=== PATIENT | female | born 1990 | race Caucasian/White ===

== ENCOUNTER → 2016-11-25 | Outpatient (CLI) | payer OTHER ==
[~2016-11-25] MED LIST: ACET50TAOT PO; ARIP1TAB PO; DEPA500T2 PO; FLAG500T PO; MOTR200T44 PO; OMEP20CA3 PO; PRENTAB52 PO
== END ==
LOC: M OUTALCOH 09:22
PROVIDERS: ATTEND Psychiatry & Neurology Psychiatry
DX: F14.20 Cocaine dependence, uncomplicated (principal); F12.20 Cannabis dependence, uncomplicated

== ENCOUNTER 2016-12-19 09:28 | Outpatient (RCR) | payer OTHER | END 2016-12-20 | LOC: M OUTALCOH 09:28 | PROVIDERS: ATTEND Psychiatry & Neurology Psychiatry | DX: Z13.9 Encounter for screening, unspecified (principal); F14.20 Cocaine dependence, uncomplicated; F12.20 Cannabis dependence, uncomplicated ==

== ENCOUNTER 2017-01-12 09:00 | Outpatient (RCR) | payer OTHER | END 2017-01-20 | LOC: M OUTALCOH 09:00 | PROVIDERS: ATTEND Psychiatry & Neurology Psychiatry | DX: Z13.9 Encounter for screening, unspecified (principal); F14.20 Cocaine dependence, uncomplicated; F12.20 Cannabis dependence, uncomplicated ==

== ENCOUNTER → 2018-07-09 | Outpatient (CLI) | payer OTHER ==
[2018-07-09 18:52] LABS: ALBUMIN 3.8 GM/DL (3.2-5.2); ALBUMIN/GLOBULIN RATIO 1.06 (1.00-1.93); ALKALINE PHOSPHATASE 74 U/L (45-117); ALT/SGPT 235 U/L (12-78); AST/SGOT 89 U/L (7-37); BILIRUBIN,DIRECT 0.1 MG/DL (0.0-0.2); BILIRUBIN,TOTAL 0.4 MG/DL (0.2-1.0); TOTAL PROTEIN 7.4 GM/DL (6.4-8.2)
[2018-07-11 10:40] LABS: HEPATITIS C VIRUS ABY INDEX > 11.0 INDEX (<0.8)
[2018-07-12 00:06] LABS: HEPATITIS C QUANTITATION 391930 IU/mL (.); Lyme Disease IgG/IgM Antibodie <0.91 ISR (0.00-0.90); Lyme Disease IgM Ab Quantitati <0.80 index (0.00-0.79)
== END ==
LOC: M SMT 14:31
DX: Z11.59 Encounter for screening for other viral diseases (principal)
CPT/HCPCS: 80076

== ENCOUNTER → 2018-08-02 | Outpatient (REF) | payer OTHER ==
[2018-08-02 12:54] LABS: ALBUMIN 3.8 GM/DL (3.2-5.2); ALBUMIN/GLOBULIN RATIO 1.19 (1.00-1.93); ALKALINE PHOSPHATASE 59 U/L (45-117); ALT/SGPT 289 U/L (12-78); ANION GAP 7 MEQ/L (8-16); AST/SGOT 127 U/L (7-37); BILIRUBIN,TOTAL 0.8 MG/DL (0.2-1.0); BLOOD UREA NITROGEN 10 MG/DL (7-18); CALCIUM LEVEL 9.3 MG/DL (8.5-10.1); CARBON DIOXIDE LEVEL 30 MEQ/L (21-32); CHLORIDE LEVEL 105 MEQ/L (98-107); CREATININE FOR GFR 0.79 MG/DL (0.55-1.30); GLOMERULAR FILTRATION RATE > 60.0 (>60); GLUCOSE, FASTING 73 MG/DL (70-100); POTASSIUM SERUM 4.1 MEQ/L (3.5-5.1); SODIUM LEVEL 142 MEQ/L (136-145)
[2018-08-03 11:58] LABS: HEPATITIS B SURFACE ANTIBODY POSITIVE (POSITIVE)
[2018-08-03 12:08] LABS: HEPATITIS B SURFACE ANTIGEN NEGATIVE (NEGATIVE)
[2018-08-03 12:37] LABS: HIV 1&2 SCREEN CENTAUR NEGATIVE (NEGATIVE)
[2018-08-07 15:09] LABS: ALPHA 2-MACROGLOBULIN 224 mg/dL (110-276); ALT 285 IU/L (0-40); APOLIPOPROTEIN A-1 139 mg/dL (116-209); FIBROSIS SCORE 0.16 (0.00-0.21); GGT 36 IU/L (0-60); HAPTOGLOBIN 82 mg/dL (34-200); HEPATITIS A IgG TOTAL Positive (Negative); HEPATITIS B CORE ANTIBODY IGG Negative (Negative); HEPATITIS C QUANTITATION 123050 IU/mL (.); HEPATITIS C VIRUS GENOTYPE 1a (.); NECROINFLAM SCORE 0.86 (0.00-0.17); NECROINFLAMM GRADE A3-Severe activity (.); TOTAL BILIRUBIN 0.4 mg/dL (0.0-1.2)
== END ==
LOC: M SFHCPLAZ 10:19
DX: B19.20 Unspecified viral hepatitis C without hepatic coma (principal)
CPT/HCPCS: 82977

== ENCOUNTER 2018-08-11 11:50 | Emergency (ER) | payer OTHER, SELFPAY ==
[2018-08-11 12:24] LABS: HEMATOCRIT 40.6 % (36.0-47.0); HEMOGLOBIN 14.1 g/dl (12.0-15.5); MEAN CORPUSCULAR HEMOGLOBIN 31.9 pg (27.0-33.0); MEAN CORPUSCULAR HGB CONC 34.7 g/dl (32.0-36.5); MEAN CORPUSCULAR VOLUME 91.9 fl (80.0-96.0); PLATELET COUNT, AUTOMATED 227 10^3/uL (150-450); RED BLOOD COUNT 4.42 10^6/uL (4.00-5.40); RED CELL DISTRIBUTION WIDTH 11.9 % (11.5-14.5); WHITE BLOOD COUNT 5.6 10^3/uL (4.0-10.0)
[2018-08-11 12:42] LABS: CONTROL LINE HCG INT CTR LINE PRESENT; HCG, SERUM QUALITATIVE NEGATIVE (NEGATIVE)
[2018-08-11 13:00] LABS: ACETAMINOPHEN LEVEL < 2.0 UG/ML (10.0-30.0); ALBUMIN 3.9 GM/DL (3.2-5.2); ALBUMIN/GLOBULIN RATIO 1.22 (1.00-1.93); ALKALINE PHOSPHATASE 58 U/L (45-117); ALT/SGPT 237 U/L (12-78); ANION GAP 4 MEQ/L (8-16); AST/SGOT 87 U/L (7-37); BILIRUBIN,DIRECT 0.2 MG/DL (0.0-0.2); BILIRUBIN,TOTAL 0.9 MG/DL (0.2-1.0); BLOOD UREA NITROGEN 12 MG/DL (7-18); CARBON DIOXIDE LEVEL 29 MEQ/L (21-32); CHLORIDE LEVEL 108 MEQ/L (98-107); CREATININE FOR GFR 0.88 MG/DL (0.55-1.30); ETHYL ALCOHOL (ETHANOL) < 0.003 % (0.000-0.010); GLOMERULAR FILTRATION RATE > 60.0 (>60); GLUCOSE, FASTING 89 MG/DL (70-100); POTASSIUM SERUM 4.3 MEQ/L (3.5-5.1); SALICYLATE LEVEL < 1.7 MG/DL (5.0-30.0); SODIUM LEVEL 141 MEQ/L (136-145); TOTAL PROTEIN 7.1 GM/DL (6.4-8.2)
[2018-08-11] MEDS: KETOROLAC 30 MG/ML VIAL (J1885) IV (13:08)
[2018-08-11] MEDS: NS 1,000 ML IV (13:09)
[2018-08-11 16:20] LABS: AMPHETAMINES LEVEL URINE NEGATIVE (NEGATIVE); BARBITURATES URINE NEGATIVE (NEGATIVE); BENZODIAZEPINES URINE NEGATIVE (NEGATIVE); CANNABINOIDS URINE NEGATIVE (NEGATIVE); COCAINE METABOLITE URINE NEGATIVE (NEGATIVE); METHADONE URINE NEGATIVE (NEGATIVE); OPIATES URINE NEGATIVE (NEGATIVE); PHENCYCLIDINE URINE NEGATIVE (NEGATIVE)
== END 2018-08-11 22:00 ==
LOC: M ED 11:50
DX: F22 Delusional disorders (principal); F29 Unspecified psychosis not due to a substance or known physiological condition; K90.0 Celiac disease; Z72.0 Tobacco use
CPT/HCPCS: J1885

== ENCOUNTER → 2018-09-28 | Outpatient (CLI) | payer OTHER ==
[2018-09-28 13:18] LABS: ALBUMIN 3.8 GM/DL (3.2-5.2); ALBUMIN/GLOBULIN RATIO 1.12 (1.00-1.93); ALKALINE PHOSPHATASE 54 U/L (45-117); ALT/SGPT 32 U/L (12-78); AST/SGOT 19 U/L (7-37); BILIRUBIN,DIRECT 0.1 MG/DL (0.0-0.2); BILIRUBIN,TOTAL 0.5 MG/DL (0.2-1.0); TOTAL PROTEIN 7.2 GM/DL (6.4-8.2)
[2018-09-28 14:13] LABS: HEPATITIS C VIRUS ABY INDEX > 11.0 INDEX (<0.8)
[2018-10-02 14:13] LABS: HEPATITIS C QUANTITATION HCV Not Detected IU/mL (.)
== END ==
LOC: M SMT 11:16
DX: B18.2 Chronic viral hepatitis C (principal)
CPT/HCPCS: 80076

== ENCOUNTER → 2019-01-10 | Outpatient (REF) | payer OTHER ==
[~2019-01-10] MED LIST changes: +ACET500T15 PO; -ACET50TAOT PO
[2019-01-10 11:45] LABS: BASO % 0.3 % (0.0-1.0); EOS # 0.2 10^3/uL (0.0-0.50); EOS % 3.2 % (0.0-3.0); HEMATOCRIT 41.8 % (36.0-47.0); HEMOGLOBIN 14.1 g/dl (12.0-15.5); LYMPH # 2.3 10^3/uL (1.5-6.5); LYMPH % 35.6 % (24.0-44.0); MEAN CORPUSCULAR HEMOGLOBIN 31.5 pg (27.0-33.0); MEAN CORPUSCULAR HGB CONC 33.7 g/dl (32.0-36.5); MEAN CORPUSCULAR VOLUME 93.5 fl (80.0-96.0); MONO # 0.4 10^3/uL (0.0-0.8); MONO % 5.5 % (0.0-5.0); NEUTROPHILS # 3.5 10^3/uL (1.8-7.7); NEUTROPHILS % 55.1 % (36.0-66.0); PLATELET COUNT, AUTOMATED 215 10^3/uL (150-450); RED BLOOD COUNT 4.47 10^6/uL (4.00-5.40); WHITE BLOOD COUNT 6.3 10^3/uL (4.0-10.0)
[2019-01-10 12:17] LABS: ALBUMIN 3.6 GM/DL (3.2-5.2); ALT/SGPT 21 U/L (12-78); BILIRUBIN,TOTAL 0.4 MG/DL (0.2-1.0); BLOOD UREA NITROGEN 14 MG/DL (7-18); CALCIUM LEVEL 9.3 MG/DL (8.5-10.1); CARBON DIOXIDE LEVEL 28 MEQ/L (21-32); CHLORIDE LEVEL 107 MEQ/L (98-107); CREATININE FOR GFR 0.86 MG/DL (0.55-1.30); GLOMERULAR FILTRATION RATE > 60.0 (>60); GLUCOSE, FASTING 89 MG/DL (70-100); POTASSIUM SERUM 4.2 MEQ/L (3.5-5.1); SODIUM LEVEL 142 MEQ/L (136-145); TOTAL PROTEIN 6.9 GM/DL (6.4-8.2)
== END ==
LOC: M SFHCCLAY 09:20
PROVIDERS: ATTEND Internal Medicine Infectious Disease
DX: B18.2 Chronic viral hepatitis C (principal)

== ENCOUNTER 2019-04-29 12:02 | Inpatient (IN) | payer OTHER ==
[~2019-04-29 12:02] MED LIST changes: +OMEP1CAP73 PO; -OMEP20CA3 PO
[2019-04-29] MEDS ORDERED: HYDR50TA70 (12:14)
[2019-04-29] MEDS ORDERED: RISP3TAB3 (12:14)
[2019-04-29 14:09] LABS: HEMATOCRIT 48.2 % (36.0-47.0); HEMOGLOBIN 16.7 g/dl (12.0-15.5); MEAN CORPUSCULAR HEMOGLOBIN 32.3 pg (27.0-33.0); MEAN CORPUSCULAR HGB CONC 34.6 g/dl (32.0-36.5); MEAN CORPUSCULAR VOLUME 93.2 fl (80.0-96.0); PLATELET COUNT, AUTOMATED 325 10^3/uL (150-450); RED BLOOD COUNT 5.17 10^6/uL (4.00-5.40); WHITE BLOOD COUNT 13.2 10^3/uL (4.0-10.0)
[2019-04-29 14:31] LABS: HCG, SERUM QUALITATIVE NEGATIVE (NEGATIVE)
[2019-04-29 14:40] LABS: ALBUMIN 4.2 GM/DL (3.2-5.2); ALT/SGPT 98 U/L (12-78); BILIRUBIN,DIRECT 0.3 MG/DL (0.0-0.2); BLOOD UREA NITROGEN 13 MG/DL (7-18); CALCIUM LEVEL 9.3 MG/DL (8.5-10.1); CARBON DIOXIDE LEVEL 25 MEQ/L (21-32); CHLORIDE LEVEL 107 MEQ/L (98-107); CREATININE FOR GFR 1.03 MG/DL (0.55-1.30); ETHYL ALCOHOL (ETHANOL) < 0.003 % (0.000-0.010); GLOMERULAR FILTRATION RATE > 60.0 (>60); GLUCOSE, FASTING 107 MG/DL (70-100); POTASSIUM SERUM 3.9 MEQ/L (3.5-5.1); SALICYLATE LEVEL 2.2 MG/DL (5.0-30.0); SODIUM LEVEL 140 MEQ/L (136-145); TOTAL PROTEIN 8.2 GM/DL (6.4-8.2)
[2019-04-29 14:41] LABS: ACETAMINOPHEN LEVEL < 2.0 UG/ML (10.0-30.0)
[2019-04-29 16:36] LABS: AMPHETAMINES LEVEL URINE POSITIVE (NEGATIVE); BARBITURATES URINE NEGATIVE (NEGATIVE); BENZODIAZEPINES URINE NEGATIVE (NEGATIVE); CANNABINOIDS URINE POSITIVE (NEGATIVE); COCAINE METABOLITE URINE POSITIVE (NEGATIVE); METHADONE URINE NEGATIVE (NEGATIVE); OPIATES URINE NEGATIVE (NEGATIVE); PHENCYCLIDINE URINE NEGATIVE (NEGATIVE)
[2019-04-29] MEDS ORDERED: diphenhydrAMINE INJ 50MG/ML VIAL (J1200) As Ordered ONE (19:14)
[2019-04-29] MEDS ORDERED: HALOPERIDOL 5 MG/ML VIAL (J1630) As Ordered ONE (19:14)
[2019-04-29] MEDS ORDERED: LORazepam 2 MG/ML VIAL (J2060) As Ordered ONE (19:15)
[2019-04-29] MEDS ORDERED: LORazepam 2 MG/ML VIAL (J2060) IM ONE (19:15)
[2019-04-29] MEDS ORDERED: HALOPERIDOL 5 MG/ML VIAL (J1630) IM ONE (19:15)
[2019-04-29] MEDS ORDERED: diphenhydrAMINE INJ 50MG/ML VIAL (J1200) IM ONE (19:15)
[2019-04-29] MEDS ORDERED: ACETAMINOPHEN TAB 650MG DOSE (2X325MG) PO PRN (20:45)
[2019-04-29] MEDS ORDERED: MOM 30ML SUSPENSION UDC PO PRN (20:45)
[2019-04-29] MEDS ORDERED: OLANZapine ORAL DISINTEGRATING TAB 5MG PO PRN (20:45)
[2019-04-29] MEDS ORDERED: IBUPROFEN 400 MG TAB PO PRN (20:45)
[2019-04-30 01:36] VITALS: BP 111/54
--- NOTE | 2019-04-30 10:16 | MHHPEPDOC ---
[facility] History & Physical History and Physical DATE OF ADMISSION: Apr 29, 2019 at 20:34 LEGAL STATUS AT ADMISSION: . CHIEF COMPLAINT: . HISTORY OF PRESENT ILLNESS: Patient is a 29-year-old female, who PSYCHIATRIC REVIEW OF SYSTEMS: Affective: . Anxiety: . Trauma: . Psychosis: . Personality: . PAST PSYCHIATRIC HISTORY: Prior Psychiatric Disorder: . Outpatient Treatment: . Suicidal/Self injurious: [Denies]. Psychotropic Medication History: . ALLERGIES: Please see below. FAMILY PSYCHIATRIC HISTORY: [Denies]. SOCIAL HISTORY: Early Relations/development: . Sibling order: . Paternal relationships: . Education: . Occupational: . Legal: . Marital: . Economic: . Supports: . Abuse/trauma: . SUBSTANCE ABUSE HISTORY: . PAST MEDICAL/SURGICAL HISTORY: [None]. VITAL SIGNS: Please see below. MENTAL STATUS EXAMINATION: General appearance: Patient is a -year old female, who is . Speech: . Thought processes: . Thought content: . Abstract reasoning and computation: . Description of associations: . Description of abnormal or psychotic thoughts: . Judgment: . Insight: . Orientation: . Recent and remote memory: . Attention span and concentration: . Fund of knowledge: . Mood: "." Affect: . DIAGNOSES: 1. . 2. . 3. . ASSESSMENT: PROBLEM LIST: 1. . 2. . 3. . INITIAL TREATMENT PLAN: 1. Patient was admitted on a . 2. Complete history was obtained. 3. With patients permission, family will be contacted and database will be expanded. 4. Patients medication regimen will be reviewed and changed accordingly. 5. Patient will be provided with protected environment. 6. Patient will be treated with individual, group, and milieu therapies. 7. Patient will receive supportive psych-education. 8. Discharge planning will commence immediately. 9. Outpatient follow-up treatment will be strongly recommended. 10. The initial treatment plan will focus initially on: * Depression. * Risk for suicide. * Substance abuse. ESTIMATED LENGTH OF STAY: - DAYS. TIME SPENT COUNSELING AND COORDINATING INITIAL CARE: minutes. Vital Signs Vital Signs Date Time Temp Pulse Resp B/P (MAP) Pulse Ox O2 Delivery O2 Flow Rate FiO2 04/30/19 01:36 97.6 86 16 111/54 (73) 04/29/19 21:15 97 Room Air Laboratory Data 24H Labs Laboratory Tests 2 04/29/19 12:45: Nucleated Red Blood Cells % (auto) 0.0, Anion Gap 8, Glomerular Filtration Rate > 60.0, Calcium Level 9.3, Aspartate Amino Transf (AST/SGOT) 60H, Alanine Aminotransferase (ALT/SGPT) 98H, Alkaline Phosphatase 65, Total Bilirubin 1.0, Direct Bilirubin 0.3H, Total Protein 8.2, Albumin 4.2, Albumin/Globulin Ratio 1.05, Thyroid Stimulating Hormone (TSH) 1.600, Human Chorionic Gonadotropin, Qual NEGATIVE, Salicylates Level 2.2L, Acetaminophen Level < 2.0L, Ethyl Alcohol Level < 0.003 04/29/19 13:32: Urine Amphetamines Screen POSITIVEH, Urine Benzodiazepines Screen NEGATIVE, Urine Opiates Screen NEGATIVE, Urine Methadone Screen NEGATIVE, Urine Barbiturates Screen NEGATIVE, Urine Phencyclidine Screen NEGATIVE, Urine Cocaine Metabolite Screen POSITIVEH, Urine Cannabinoids Screen POSITIVEH CBC/BMP Laboratory Tests 04/29/19 12:45 Red Blood Count 5.17, Mean Corpuscular Volume 93.2, Mean Corpuscular Hemoglobin 32.3, Mean Corpuscular Hemoglobin Concent 34.6, Red Cell Distribution Width 12.9 Medications No Active Prescriptions or Reported Meds Allergies Coded Allergies: Gluten Flour (Verified Allergy, Unknown, 08/11/18) LENARD POE DO Apr 30, 2019 10:16
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
[2019-04-30 18:00] VITALS: BP 115/64
[2019-04-30] MEDS: PALIPERIDONE 3 MG ER TAB (INVEGA) PO SCH (21:48)
[2019-05-01 06:40] VITALS: BP 111/57
[2019-05-01 06:56] LABS: HEMATOCRIT 46.1 % (36.0-47.0); HEMOGLOBIN 15.8 g/dl (12.0-15.5); MEAN CORPUSCULAR HEMOGLOBIN 32.9 pg (27.0-33.0); MEAN CORPUSCULAR HGB CONC 34.3 g/dl (32.0-36.5); PLATELET COUNT, AUTOMATED 246 10^3/uL (150-450); WHITE BLOOD COUNT 6.3 10^3/uL (4.0-10.0)
[2019-05-01 07:25] LABS: ALBUMIN 3.6 GM/DL (3.2-5.2); ALT/SGPT 111 U/L (12-78); BLOOD UREA NITROGEN 14 MG/DL (7-18); CALCIUM LEVEL 9.3 MG/DL (8.5-10.1); CARBON DIOXIDE LEVEL 26 MEQ/L (21-32); CHLORIDE LEVEL 106 MEQ/L (98-107); CREATININE FOR GFR 1.05 MG/DL (0.55-1.30); GLOMERULAR FILTRATION RATE > 60.0 (>60); GLUCOSE, FASTING 84 MG/DL (70-100); MAGNESIUM LEVEL 2.2 MG/DL (1.8-2.4); POTASSIUM SERUM 4.1 MEQ/L (3.5-5.1); SODIUM LEVEL 139 MEQ/L (136-145); TOTAL PROTEIN 7.1 GM/DL (6.4-8.2)
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
[2019-05-01 18:00] VITALS: BP 114/60
[2019-05-01] MEDS: PALIPERIDONE 3 MG ER TAB (INVEGA) PO SCH (22:04)
[2019-05-01] MEDS: traZODone 50 MG TAB PO PRN (22:04)
[2019-05-02 06:46] VITALS: BP 90/58
--- NOTE | 2019-05-02 09:14 | MHIPNPDOC ---
[facility] Progress Note Progress Note DATE OF SERVICE: 05/02/19 HISTORY: Patient is a 29 -year-old , female, with a history of psychosis and previous admission for psychosis to [facility] in 2016 who was brought in under 9.[address] Moeller 2mo ago after she was found by police on [facility] surrounded by a crowd of people rolling abound on the ground mumbling about Rey and the Lord per ED. In ED pt was psychotic causing her so not be able to participate with interview due to being disorganized, distracted, responding to internal stimuli, speaking of Rey "coming down to democrat with me ," and pacing. Her utox was positive for amphetamines, cocaine, and cannabis. Pt is a poor historian so history gathered from previous records. VITAL SIGNS: See below. NEW TEST RESULTS: See below. CURRENT MEDICATIONS: See below. MENTAL STATUS EXAMINATION: General Appearance: unkempt, appears stated age, hospital scrubs/clothing, o ther (red geena around neck) Build: average Demeanor: withdrawn Eye Contact: good Activity: average Behavior: cooperative Speech: clear, spontaneous Mood: euthymic and full Mood "good" Affect: euthymic and full Thought Process: linear and logical Thought Content (Delusions): Denies SI/HI, AVH Thought Content (Other): none reported Thought Content (Aggressive): none reported Perception (Hallucinations): denies auditory Perception (Other): none reported Cognition (Impairment of): memory of events prior to admission otherwise currently functioning normally Cognition(Intelligence Est.): average Oriented: Awake, Alert, Oriented times three Insight: good Judgment: good Psychosis: denies DIAGNOSES: Psychosis unspecified R/O substance induced psychosis amphetamine, cocaine, cannabis use d/o ASSESSMENT:Pt seen and states that her mood is good and denies symptoms of psychosis as invega is very beneficial and she's tolerating it well. She does not appear psychotic. She is future oriented toward going home soon and seeing her boyfriend who he lives with and who will be returning from [place] to be a police shift commander. States her boyfriend and her mother are supportive, talks to her mother regularly. States she's being social on the milieu which is beneficial. States she slept well last night. Feels she is tolerating her medications and they're beneficial. She is attending groups and finding them helpful. She denies SI/HI, hallucinations, delusions. Pt feels safe here. MANAGEMENT PLAN: continue plan invega 3mg qhs TIME SPENT: 30 minutes. Vital Signs Vital Signs Date Time Temp Pulse Resp B/P (MAP) Pulse Ox O2 Delivery O2 Flow Rate FiO2 05/02/19 06:46 98.0 73 14 90/58 (69) 04/29/19 21:15 97 Room Air Current Medications Current Medications Acetaminophen (Tylenol Tab) 650 mg Q6HP PRN PO HEADACHE or DISCOMFORT; Start 04/29/19 at 20:45 Home Med (Med Rec Complete!) ASDIRECTED XX ; Start 04/29/19 at 21:15; Stop 04/29/19 at 21:15; Status DC Ibuprofen (Advil) 400 mg Q6HP PRN PO PAIN; Start 04/29/19 at 20:45 Magnesium Hydroxide (Milk Of Magnesia) 30 ml DAILYPRN PRN PO CONSTIPATION; Start 04/29/19 at 20:45 Olanzapine (ZyPREXA ZYDIS) 5 mg Q4HP PRN PO AGITATION; Start 04/29/19 at 20:45 Paliperidone (Invega) 3 mg QHS PO Last administered on 05/01/19at 22:04; Start 04/30/19 at 21:00 Trazodone HCl (Desyrel) 50 mg QHSP PRN PO INSOMNIA Last administered on 05/01/19at 22:04; Start 04/29/19 at 20:45 Allergies Coded Allergies: Gluten Flour (Verified Allergy, Unknown, 08/11/18) ELLA TAYLOR DO May 02, 2019 9:14 am
--- NOTE | 2019-05-02 09:21 | MHDSPDOC ---
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 Moeller 2mo ago after she was found by police on [facility] surrounded by a crowd of people rolling abound on the ground mumbling about Rey and the Lord per ED. In ED pt was psychotic causing her so not be able to participate with interview due to being disorganized, distracted, responding to internal stimuli, speaking of Rey "coming down to green party with me," and pacing. Her utox was positive for amphetamines, cocaine, and cannabis. Pt is a poor historian so history gathered from previous records. CONSULTANTS INVOLVED: none TREATMENT AND PROGRESS ON THE UNIT : Pt was admitted to [facility], seen for psychiatric assessment and started on invega 3mg qhs for psychosis. She was provided trazodone 50mg qhs prn insomnia. Pt found her medications beneficial and tolerated them well. She attended groups daily during her stay. Her symptoms improved with treatment. On day of discharge she denied depression, anxiety, insomnia, SI/HI, hallucinations, delusions. She was discharged home with her boyfriend with follow-up at [facility]. She felt safe for discharge. DISCHARGE ASSESSMENT: :Pt seen and states that her mood is good and denies sy mptoms of psychosis as invega is very beneficial and she's tolerating it well. She does not appear psychotic. She is future oriented toward going home soon and seeing her boyfriend who he lives with and who will be returning from [place] to be a uniform patrol police officer. States her boyfriend and her mother are supportive, talks to her mother regularly. States she's being social on the milieu which is beneficial. States she slept well last night. Feels she is tolerating her medications and they're beneficial. She is attending groups and finding them helpful. She denies depression, anxiety, insomnia, SI/HI, hallucinations, delusions. Pt feels safe to be discharged home with her boyfriend. MENTAL STATUS EXAMINATION ON DISCHARGE: General Appearance: unkempt, appears stated age, hospital scrubs/clothing, other (red geena around neck) Build: average Demeanor: withdrawn Eye Contact: good Activity: average Behavior: cooperative Speech: clear, spontaneous Mood: euthymic and full Mood "good" Affect: euthymic and full Thought Process: linear and logical Thought Content (Delusions): Denies SI/HI, AVH Thought Content (Other): none reported Thought Content (Aggressive): none reported Perception (Hallucinations): none reported Perception (Other): none reported Cognition (Impairment of): memory of events prior to admission otherwise currently functioning normally Cognition(Intelligence Est.): average Oriented: Awake, Alert, Oriented times three Insight: good Judgment: good Psychosis: denies MEDICATIONS ON DISCHARGE: invega 3mg qhs PLAN/FOLLOWUP ARRANGEMENTS: D/c home with boyfriend with follow-up at [facility], Dr. Moeller. Vital Signs/I&Os Vital Signs Date Time Temp Pulse Resp B/P (MAP) Pulse Ox O2 Delivery O2 Flow Rate FiO2 05/02/19 06:46 98.0 73 14 90/58 (69) 04/29/19 21:15 97 Room Air Medications No Active Prescriptions or Reported Meds Allergies Coded Allergies: Gluten Flour (Verified Allergy, Unknown, 08/11/18) ELLA TAYLOR DO May 02, 2019 9:21 am
[2019-05-02] MEDS ORDERED: PALI1TAB2 PO (09:23)
[2019-05-02 18:00] VITALS: BP 106/62
[2019-05-02] MEDS: traZODone 50 MG TAB PO PRN (20:11)
[2019-05-02] MEDS: PALIPERIDONE 3 MG ER TAB (INVEGA) PO SCH (20:11)
[2019-05-03 06:55] VITALS: BP 107/56
== END 2019-05-03 10:50 | disposition home or self-care (01) | DRG 774 ==
LOC: M ED 12:02 → M ED INP 20:34 → M PSY 04-30 01:40
PROVIDERS: ADMIT Psychiatry & Neurology Addiction Medicine; ATTEND Psychiatry & Neurology Psychiatry
DX: F19.94 Other psychoactive substance use, unspecified with psychoactive substance-induced mood disorder (principal); F14.90 Cocaine use, unspecified, uncomplicated; D72.829 Elevated white blood cell count, unspecified; F12.90 Cannabis use, unspecified, uncomplicated; F15.90 Other stimulant use, unspecified, uncomplicated

== ENCOUNTER 2019-06-05 21:01 | Inpatient (IN) | payer OTHER ==
[~2019-06-05] VITALS: Ht 167.6 cm; Wt 65.2 kg
[~2019-06-05 21:01] MED LIST changes: +HYDR50TA70; -OMEP1CAP73 PO; +OMEP20CA4 PO; +PALI1TAB2 PO; +RISP3TAB3
[2019-06-05 21:36] LABS: HEMATOCRIT 45.6 % (36.0-47.0); HEMOGLOBIN 15.6 g/dl (12.0-15.5); MEAN CORPUSCULAR HEMOGLOBIN 32.1 pg (27.0-33.0); MEAN CORPUSCULAR HGB CONC 34.2 g/dl (32.0-36.5); MEAN CORPUSCULAR VOLUME 93.8 fl (80.0-96.0); PLATELET COUNT, AUTOMATED 329 10^3/uL (150-450); RED BLOOD COUNT 4.86 10^6/uL (4.00-5.40); WHITE BLOOD COUNT 11.4 10^3/uL (4.0-10.0)
[2019-06-05 22:10] LABS: ACETAMINOPHEN LEVEL < 2.0 UG/ML (10.0-30.0); ALBUMIN 4.2 GM/DL (3.2-5.2); ALT/SGPT 201 U/L (12-78); BILIRUBIN,DIRECT 0.5 MG/DL (0.0-0.2); BILIRUBIN,TOTAL 1.7 MG/DL (0.2-1.0); BLOOD UREA NITROGEN 14 MG/DL (7-18); CALCIUM LEVEL 9.5 MG/DL (8.5-10.1); CARBON DIOXIDE LEVEL 30 MEQ/L (21-32); CHLORIDE LEVEL 104 MEQ/L (98-107); CREATININE FOR GFR 0.94 MG/DL (0.55-1.30); ETHYL ALCOHOL (ETHANOL) < 0.003 % (0.000-0.010); GLOMERULAR FILTRATION RATE > 60.0 (>60); GLUCOSE, FASTING 105 MG/DL (70-100); POTASSIUM SERUM 3.5 MEQ/L (3.5-5.1); SALICYLATE LEVEL < 1.7 MG/DL (5.0-30.0); SODIUM LEVEL 140 MEQ/L (136-145); TOTAL PROTEIN 8.3 GM/DL (6.4-8.2)
[2019-06-05 22:27] LABS: AMPHETAMINES LEVEL URINE POSITIVE (NEGATIVE); BARBITURATES URINE NEGATIVE (NEGATIVE); BENZODIAZEPINES URINE NEGATIVE (NEGATIVE); CANNABINOIDS URINE POSITIVE (NEGATIVE); COCAINE METABOLITE URINE POSITIVE (NEGATIVE); METHADONE URINE NEGATIVE (NEGATIVE); OPIATES URINE NEGATIVE (NEGATIVE); PHENCYCLIDINE URINE NEGATIVE (NEGATIVE)
[2019-06-05] MEDS ORDERED: OLANZapine ORAL DISINTEGRATING TAB 5MG PO ONE (22:45)
[2019-06-05] MEDS ORDERED: LORazepam 2 MG TAB PO STA (23:38)
[2019-06-06] MEDS ORDERED: MOM 30ML SUSPENSION UDC PO PRN (01:30)
[2019-06-06] MEDS ORDERED: MAALOX 30 ML SUSP *UDC PO PRN (01:30)
[2019-06-06] MEDS ORDERED: PALI1TAB2 PO (01:44)
[2019-06-06 02:41] VITALS: BP 127/99
[2019-06-06 06:35] VITALS: BP 139/87
--- NOTE | 2019-06-06 07:27 | HPEPDOC ---
General Date of Admission Jun 06, 2019 at 01:27 Date of Service: Jun 06, 2019 Attending Physician: ARTUR CANCHOLA MD Chief Complaint The patient is a 29-year-old female admitted with a reason for visit of Unspecified Psychotic D/O. History of Present Illness Dat Cowart patient is a 29-year-old female, admitted on account of bizarre behavior with auditory hallucinations. Patient was recently discharged less than a month ago from this facility for acute psychosis with paranoia. On presentation, this time Urine drug screen was again positive for amphetamines, cocaine and THC. She was admitted for acute psychosis, paranoia and delusions to inpatient psychiatric unit for further evaluation and management. On assessment, she presents with a limp, attributing to left foot pain. She denies chest pain, shortness of breath, weakness, chills, fever. Otherwise, urine examination continued to mumble to herself with very incoherent speech Home Medications Scheduled Paliperidone (Paliperidone ER) 3 Mg Tab.er.24, 3 MG PO QHS, (Reported) Allergies Coded Allergies: Gluten Flour (Verified Allergy, Unknown, 08/11/18) Past Medical History Medical History Denies prior medical history Surgical History Denies surgical history Family History Significant Family History: No pertinent family hx Social History Urine drug screen positive for amphetamine, cocaine, THC. A-FIB/CHADSVASC A-FIB History Current/History of A-Fib/PAF?: No Current PO Anticoag Therapy: No Review of Systems Other systems Review of systems not completed due to patient's impaired mental status and intoxication Physical Examination Other physical findings GENERAL: Altered, but in no acute distress SKIN : Warm, dry, wound and cracked callus to third toe pad left foot HEENT: Atraumatic, normocephalic, PERRL, moist mucous membrane CARDIOVASCULAR: Regular rate and rhythm, S1S2, no JVD, no edema, distal pulses + and palpable RESP: CTAB, no accessory muscle use noted ABDOMEN: BS+ non distended non tender MS: walks with limp with callus to left foot pad NEURO: Alert to self, CN2-12 grossly intact PSYCH: altered, intoxicated Vital Signs Vital Signs Date Time Temp Pulse Resp B/P (MAP) Pulse Ox O2 Delivery O2 Flow Rate FiO2 06/06/19 06:35 99.2 95 16 139/87 (104) 06/05/19 22:09 98 Laboratory Data Labs 24H Laboratory Tests 2 06/05/19 21:19: Nucleated Red Blood Cells % (auto) 0.0, Anion Gap 6L, Glomerular Filtration Rate > 60.0, Calcium Level 9.5, Aspartate Amino Transf (AST/SGOT) 49H, Alanine Aminotransferase (ALT/SGPT) 201H, Alkaline Phosphatase 87, Total Bilirubin 1.7H, Direct Bilirubin 0.5H, Total Protein 8.3H, Albumin 4.2, Albumin/Globulin Ratio 1.02, Thyroid Stimulating Hormone (TSH) 1.820, Salicylates Level < 1.7L, Acetaminophen Level < 2.0L, Ethyl Alcohol Level < 0.003 06/05/19 21:56: Urine Amphetamines Screen POSITIVEH, Urine Benzodiazepines Screen NEGATIVE, Urine Opiates Screen NEGATIVE, Urine Methadone Screen NEGATIVE, Urine Barbiturates Screen NEGATIVE, Urine Phencyclidine Screen NEGATIVE, Urine Cocaine Metabolite Screen POSITIVEH, Urine Cannabinoids Screen POSITIVEH CBC/BMP Laboratory Tests 06/05/19 21:19 Red Blood Count 4.86, Mean Corpuscular Volume 93.8, Mean Corpuscular Hemoglobin 32.1, Mean Corpuscular Hemoglobin Concent 34.2, Red Cell Distribution Width 12.8 Assessment/Plan Transaminitis -AST 49, ALT 21, bilirubin 1.7 -Possibly due to polysubstance abuse -Trend levels and consider imaging of liver if unimproved -Evaluate for acute hepatitis Left foot wound -Does not seem infected -Apply Warm soaks with protective footwear -Topical antibiotic -Monitor for response to therapy Leukocytosis -Possibly reactive -Was elevated last admit -Monitor with treatment, patient has no signs or symptoms of acute infectious process -If persistently elevated with other signs of infection, will investigate further Acute psychosis and delirium -Likely due to polysubstance abuse. -Management and treatment by primary team Polysubstance abuse -Management and treatment by primary team Plan / VTE VTE Prophylaxis Ordered?: No VTE Exclusion Mechanical Proph: Low Risk for VTE SABINE VERDIN Jun 06, 2019 07:27
[2019-06-06] MEDS: NEOSPORIN TOP OINT 15GM TOP SCH ×2 (09:00→12:00)
[2019-06-06 11:45] LABS: ALBUMIN 3.6 GM/DL (3.2-5.2); ALT/SGPT 160 U/L (12-78); BILIRUBIN,TOTAL 1.7 MG/DL (0.2-1.0); BLOOD UREA NITROGEN 17 MG/DL (7-18); CALCIUM LEVEL 9.3 MG/DL (8.5-10.1); CARBON DIOXIDE LEVEL 26 MEQ/L (21-32); CHLORIDE LEVEL 106 MEQ/L (98-107); CREATININE FOR GFR 0.78 MG/DL (0.55-1.30); GLOMERULAR FILTRATION RATE > 60.0 (>60); GLUCOSE, FASTING 84 MG/DL (70-100); POTASSIUM SERUM 3.7 MEQ/L (3.5-5.1); SODIUM LEVEL 139 MEQ/L (136-145); TOTAL PROTEIN 7.3 GM/DL (6.4-8.2)
[2019-06-06] MEDS ORDERED: LORazepam 1 MG TAB PO ONE (13:00)
[2019-06-06] MEDS ORDERED: HALOPERIDOL 5 MG TAB PO ONE (13:00)
[2019-06-06] MEDS ORDERED: diphenhydrAMINE 50 MG CAP PO ONE (13:00)
[2019-06-06 16:01] LABS: CPK CREATINE PHOSPHOKINASE 173 U/L (26-192)
[2019-06-06 18:00] VITALS: BP 113/69
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
[2019-06-07] MEDS: ACETAMINOPHEN TAB 650MG DOSE (2X325MG) PO PRN ×2 (05:52→17:26)
[2019-06-07 06:05] VITALS: BP 121/65
[2019-06-07 08:07] LABS: HEMATOCRIT 42.6 % (36.0-47.0); HEMOGLOBIN 14.6 g/dl (12.0-15.5); MEAN CORPUSCULAR HEMOGLOBIN 31.7 pg (27.0-33.0); MEAN CORPUSCULAR HGB CONC 34.3 g/dl (32.0-36.5); MEAN CORPUSCULAR VOLUME 92.6 fl (80.0-96.0); PLATELET COUNT, AUTOMATED 283 10^3/uL (150-450); WHITE BLOOD COUNT 7.3 10^3/uL (4.0-10.0)
[2019-06-07 08:34] LABS: ALBUMIN 3.5 GM/DL (3.2-5.2); ALT/SGPT 146 U/L (12-78); BILIRUBIN,TOTAL 0.8 MG/DL (0.2-1.0); BLOOD UREA NITROGEN 19 MG/DL (7-18); CALCIUM LEVEL 9.2 MG/DL (8.5-10.1); CARBON DIOXIDE LEVEL 25 MEQ/L (21-32); CHLORIDE LEVEL 107 MEQ/L (98-107); CREATININE FOR GFR 0.83 MG/DL (0.55-1.30); GLOMERULAR FILTRATION RATE > 60.0 (>60); GLUCOSE, FASTING 90 MG/DL (70-100); MAGNESIUM LEVEL 2.3 MG/DL (1.8-2.4); SODIUM LEVEL 140 MEQ/L (136-145); TOTAL PROTEIN 7.1 GM/DL (6.4-8.2)
--- NOTE | 2019-06-07 09:11 | IPNPDOC ---
Text Note Date of Service The patient was seen on 06/07/19. NOTE Subjective: Still incoherent, foot pain. Still persisting. Denies nausea or vom iting. Denies chest pain, denies shortness of breath. Objective: GENERAL: NAD SKIN : Warm, callus to left foot pad HEENT: Atraumatic, normocephalic, PERRL, moist mucous membrane CARDIOVASCULAR: Regular rate and rhythm, S1S2, no JVD, no edema, distal pulses + palpable RESP: CTAB, no accessory muscle use noted ABDOMEN: BS+ non distended non tender MS: no joint deformities NEURO: Alert to self PSYCH: Altered mental status. Assessment and plan Transaminitis -Possibly due to polysubstance abuse -Hepatitis panel ordered for further evaluation -Patient reports no GI symptoms. Left Foot pad Callus Wound -wound care ordered when patient allows. Acute Psychosis -likely due to poly substance abuse -management by primary team VS,Shanna, I+O VS, Shanna, I+O Laboratory Tests 06/06/19 10:20 Calcium Level 9.3, Aspartate Amino Transf (AST/SGOT) 49 H, Alanine A minotransferase (ALT/SGPT) 160 H, Total Creatine Kinase 173, Alkaline Phosphatase 75, Total Bilirubin 1.7 H, Total Protein 7.3, Albumin 3.6 06/07/19 07:36 Calcium Level 9.2, Aspartate Amino Transf (AST/SGOT) 62 H, Alanine Aminotransferase (ALT/SGPT) 146 H, Alkaline Phosphatase 79, Total Bilirubin 0.8 #, Total Protein 7.1, Albumin 3.5, Red Blood Count 4.60, Mean Corpuscular Volume 92.6, Mean Corpuscular Hemoglobin 31.7, Mean Corpuscular Hemoglobin Concent 34.3, Red Cell Distribution Width 12.8 Vital Signs Date Time Temp Pulse Resp B/P (MAP) Pulse Ox O2 Delivery O2 Flow Rate FiO2 06/07/19 06:05 98.8 95 18 121/65 (83) 06/05/19 22:09 98 SABINE VERDNIP Jun 07, 2019 09:11
[2019-06-07] MEDS: NEOSPORIN TOP OINT 15GM TOP SCH (09:47)
[2019-06-07 12:11] LABS: HEPATITIS A ANTIBODY IGM NEGATIVE (NEGATIVE); HEPATITIS B CORE ANTIBODY IGM NEGATIVE (NEGATIVE); HEPATITIS B SURFACE ANTIGEN NEGATIVE (NEGATIVE)
[2019-06-07 12:12] LABS: HEPATITIS C VIRUS ABY INDEX > 11.0 INDEX (<0.8)
--- NOTE | 2019-06-07 14:18 | MHIPNPDOC ---
[facility] Progress Note Progress Note Inpatient Progress Note Sera Daugherty Female Date of : N/A Date of Service: 06/07/2019 History of Present Illness The patient, a 29-year-old woman presents to [facility] overtly psychotic after being found by police yelling at the ground, various nonsensical statements. She has a notable history of multiple admissions and severe methamphetamine and drug use. The patient had made various bizarre statements in the ER feeling that her skin was being "eaten" by various chemicals and was responding to internal stimuli, thus was admitted. This provider attempted to then interview the patient; however, she remained fairly psychotic and unable to relate any coherent narrative, simply stating that there were "dogs in the wall and laying in her bed" staring bizarrely. Later in the day, she had started crying unusually, when asked if she wanted to eat, where she was given a small dose of medications in order to help soothe her symptoms, where the treatment team was concerned that she had taken a hallucinogen in addition to her methamphetamine she was positive for on admission. She generally stayed isolated to her room for the majority of the day and the majority of the psychosocial information extracted from her previous admissions. Interval History The patient has met with today. She reports that she is feeling "better." She has been notably sleeping the majority of the day. She's denies using any drugs prior to admission. However, when confronted with the fact that her urinary tox screen is positive with cocaine and meth she denies recent use prior to admission Review Of Systems makes no complaints other than hypersomnia Psychotherapy None on this visit. Vital Signs Reviewed. Mental Status Examination General: Fair hygiene Speech: Fluid Thought processes: Linear MSK: Smooth and coordinated gait, no signs of tremors or involuntary orofacial movements Thought content: no bizarre thoughts noted Abstract reasoning, and computation: Intact Description of associations: Intact Description of abnormal or psychotic thoughts: Denies any suicidal or homicidal ideation. Denies any auditory or visual hallucinations. Does not appear to be responding to internal stimuli. Does not appear to be endorsing any bizarre or paranoid ideation. Judgment: Improving Insight: Improving Orientation: Alert and orientated 3 Cognition: Grossly normal Recent and remote memory: Intact Attention span and concentration: Intact Fund of knowledge: Adequate Mood: "fine" Affect: flat Diagnoses Unspecified psychotic disorder. Methamphetamine use disorder, severe. Cocaine use disorder, severe. Cannabis use disorder, severe. 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 Disposition The patient will need further admission to observe for behavioral changes and ensure resolution of her psychotic symptoms. Time Spent Ten minutes face to face Monday Vital Signs Vital Signs Date Time Temp Pulse Resp B/P (MAP) Pulse Ox O2 Delivery O2 Flow Rate FiO2 06/07/19 06:05 98.8 95 18 121/65 (83) 06/05/19 22:09 98 Laboratory Data 24H Labs Laboratory Tests 2 06/07/19 07:36: Nucleated Red Blood Cells % (auto) 0.0, Anion Gap 8, Glomerular Filtration Rate > 60.0, Blood Urea Nitrogen 19H, Creatinine 0.83, Sodium Level 140, Potassium Level 4.0, Chloride Level 107, Carbon Dioxide Level 25, Calcium Level 9.2, Aspartate Amino Transf (AST/SGOT) 62H, Alanine Aminotransferase (ALT/SGPT) 146H, Alkaline Phosphatase 79, Total Bilirubin 0.8#, Total Protein 7.1, Albumin 3.5, Magnesium Level 2.3, Albumin/Globulin Ratio 0.97L CBC/BMP Laboratory Tests 06/07/19 07:36 Red Blood Count 4.60, Mean Corpuscular Volume 92.6, Mean Corpuscular Hemoglobin 31.7, Mean Corpuscular Hemoglobin Concent 34.3, Red Cell Distribution Width 12.8, Calcium Level 9.2, Aspartate Amino Transf (AST/SGOT) 62 H, Alanine Aminotransferase (ALT/SGPT) 146 H, Alkaline Phosphatase 79, Total Bilirubin 0.8 #, Total Protein 7.1, Albumin 3.5 Current Medications Current Medications Medications (Trade) Dose Ordered Sig/Walt Route PRN Reason Start Time Stop Time Status Last Admin Dose Admin Acetaminophen (Tylenol Tab) 650 mg Q6HP PRN PO HEADACHE or DISCOMFORT 06/06/19 01:30 06/07/19 05:52 Al Hydrox/Mg Hydrox/Simethicone (Mylanta) 30 ml Q4HP PRN PO HEARTBURN/INDIGESTION 06/06/19 01:30 Diphenhydramine HCl (Benadryl) 50 mg Q6HP PRN PO ANXIETY/AGITATION 06/06/19 01:30 Haloperidol (Haldol) 5 mg Q6HP PRN PO ANXIETY/AGITATION 06/06/19 01:30 Home Med (Med Rec Complete!) ASDIRECTED XX 06/06/19 01:45 06/06/19 01:46 DC Lorazepam (Ativan) 2 mg Q6HP PRN PO ANXIETY/AGITATION 06/06/19 01:30 Lorazepam (Ativan) 2 mg STAT STAT PO 06/05/19 23:38 06/05/19 23:39 DC 06/06/19 00:48 Magnesium Hydroxide (Milk Of Magnesia) 30 ml DAILYPRN PRN PO CONSTIPATION 06/06/19 01:30 Neomycin/ Polymyxin/ Bacitracin (Neosporin) APPLY TO UNDER THE TOES... DAILY TOP 06/06/19 09:00 06/07/19 09:47 Trazodone HCl (Desyrel) 50 mg QHSP PRN PO INSOMNIA 06/06/19 01:30 Allergies Coded Allergies: Gluten Flour (Verified Allergy, Unknown, 08/11/18) LENARD POE DO Jun 07, 2019 14:18
[2019-06-07 18:00] VITALS: BP 107/70
[2019-06-07] MEDS: LORazepam 1 MG TAB PO PRN (18:03)
[2019-06-07] MEDS: diphenhydrAMINE 25 MG CAP PO PRN (21:09)
[2019-06-07] MEDS: traZODone 50 MG TAB PO PRN (21:10)
[2019-06-08 06:47] VITALS: BP 97/60
[2019-06-08 08:10] LABS: HEMOGLOBIN 14.3 g/dl (12.0-15.5); MEAN CORPUSCULAR HEMOGLOBIN 32.4 pg (27.0-33.0); MEAN CORPUSCULAR VOLUME 95.2 fl (80.0-96.0); PLATELET COUNT, AUTOMATED 271 10^3/uL (150-450); RED BLOOD COUNT 4.41 10^6/uL (4.00-5.40); WHITE BLOOD COUNT 5.2 10^3/uL (4.0-10.0)
[2019-06-08 08:35] LABS: ALBUMIN 3.2 GM/DL (3.2-5.2); ALT/SGPT 128 U/L (12-78); BILIRUBIN,TOTAL 0.4 MG/DL (0.2-1.0); BLOOD UREA NITROGEN 11 MG/DL (7-18); CALCIUM LEVEL 8.7 MG/DL (8.5-10.1); CARBON DIOXIDE LEVEL 28 MEQ/L (21-32); CHLORIDE LEVEL 107 MEQ/L (98-107); CREATININE FOR GFR 0.84 MG/DL (0.55-1.30); GLOMERULAR FILTRATION RATE > 60.0 (>60); GLUCOSE, FASTING 101 MG/DL (70-100); POTASSIUM SERUM 3.7 MEQ/L (3.5-5.1); SODIUM LEVEL 140 MEQ/L (136-145); TOTAL PROTEIN 6.9 GM/DL (6.4-8.2)
[2019-06-08] MEDS: NEOSPORIN TOP OINT 15GM TOP SCH (09:00)
[2019-06-08] MEDS: LORazepam 1 MG TAB PO PRN ×2 (09:56→18:32)
[2019-06-08] MEDS: ACETAMINOPHEN TAB 650MG DOSE (2X325MG) PO PRN (16:25)
[2019-06-08] MEDS: HALOPERIDOL 5 MG TAB PO PRN (16:26)
[2019-06-08 18:00] VITALS: BP 103/61
[2019-06-09 06:49] VITALS: BP 90/51
[2019-06-09] MEDS: LORazepam 1 MG TAB PO PRN ×2 (09:28→18:24)
[2019-06-09] MEDS: diphenhydrAMINE 25 MG CAP PO PRN (09:28)
[2019-06-09] MEDS: NEOSPORIN TOP OINT 15GM TOP SCH (09:29)
--- NOTE | 2019-06-09 10:25 | MHIPN ---
DATE: 06/08/2019 VITAL SIGNS: Temperature 97.9, pulse 99, respirations 16, blood pressure 97/60. CURRENT MEDICATIONS: - Ativan 2 mg every 6 hours as needed - Benadryl 50 mg at bedtime as needed - trazodone 50 mg at bedtime as needed HISTORY OF PRESENT ILLNESS: This is a 29-year-old, white female who presented to the emergency department with acute psychosis. The patient was showing bizarre behavior. She does have a history of methamphetamine drug use. The patient is not being treated with any antipsychotics. There is a concern that the patient may have drug induced psychosis. The patient has been isolating in her room. She spends most of her day in bed. She is not active in the hospital milieu. She claims that she does have moderate depression. She denies having any auditory hallucinations. She complains that her body aches all over. She has no other complaints. MENTAL STATUS EXAMINATION: The patient is alert and oriented, but only marginally cooperative. Voice is low. She remains in bed throughout the interview. She volunteers little. She is not a good historian. She denies any current psychotic symptoms. She reports moderate depressive symptoms, but denies being homicidal or suicidal. Insight and judgment appear fair. No signs of cognitive deficits. DIAGNOSES: Psychotic disorder unspecified. Rule out substance induced psychosis. Methamphetamine use disorder. Cocaine use disorder. Cannabis use disorder. PLAN: Continue present management. Patient encouraged involvement in hospital milieu. Monitor for safety.
[2019-06-09] MEDS: HALOPERIDOL 5 MG TAB PO PRN (14:50)
[2019-06-09] MEDS: ACETAMINOPHEN TAB 650MG DOSE (2X325MG) PO PRN (14:51)
[2019-06-09 18:37] VITALS: BP 95/56
[2019-06-09] MEDS: traZODone 50 MG TAB PO PRN (22:17)
[2019-06-10 06:33] VITALS: BP 90/51
[2019-06-10] MEDS ORDERED: NICO14PA TOP (08:47)
[2019-06-10] MEDS: NEOSPORIN TOP OINT 15GM TOP SCH (09:34)
[2019-06-10] MEDS: HALOPERIDOL 5 MG TAB PO PRN (09:35)
[2019-06-10] MEDS: ACETAMINOPHEN TAB 650MG DOSE (2X325MG) PO PRN (09:35)
--- NOTE | 2019-06-10 09:39 | MHDSPDOC ---
[facility] Discharge Summary Discharge Summary DATE OF ADMISSION: Jun 06, 2019 at 01:27 DATE OF DISCHARGE: 06/10/19 Date of Service: 06/10/2019 Diagnoses Unspecified psychotic disorder. Methamphetamine use disorder, severe. Cocaine use disorder, severe. Cannabis use disorder, severe. History of Present Illness The patient, a 29-year-old woman presents to [facility] overtly psychotic after being found by police yelling at the ground, various nonsensical statements. She has a notable history of multiple admissions and severe methamphetamine and drug use. The patient had made various bizarre statements in the ER feeling that her skin was being "eaten" by various chemicals and was responding to internal stimuli, thus was admitted. Consultants Involved Hospitalist/PCP screening Treatment and Progress On The Unit The patient was admitted to the unit. She was not restarted on her paliperidone, which she had been on as an outpatient. However, despite this she made a quick recovery with no standing medications highly suggesting that the patient's tox screen positive for cocaine and methamphetamine as well as cannabis was a likely provoking factor for her psychosis. She subsequently resolved after several days of observation demonstrating no further bizarre behavior and was able to attend to her needs. When she was met with on the day of discharge, she requested to leave and at that time did not meet involuntary criteria as she did not demonstrate any suicidal or homicidal ideation and had ceased endorsing any bizarre thoughts for several days. She was noted to be generally fairly tired on her admission likely secondary to methamphetamine withdrawal. On discharge, the patient and her mother wanted to resume the Invega as she had been on it for roughly a week prior to her admission. It was resumed however with the reservation that her current psychotic symptoms are very strongly/likely related to her significant substance abuse of which the patient was counseled s ignificantly on during her admission. Discharge Assessment 29-year-old woman with a significant substance use history, who presents with psychosis likely secondary from methamphetamine and cocaine use, who resolves spontaneously without any major interventions on the unit. Mental Status Examination General: Well dressed with good hygiene Speech: Spontaneous and fluid Thought processes: Linear and logical MSK: Smooth and coordinated gait, no signs of tremors or involuntary orofacial movements Thought content: Future orientated Abstract reasoning, and computation: Intact Description of associations: Intact Description of abnormal or psychotic thoughts: Denies any suicidal or homicidal ideation. Denies any auditory or visual hallucinations. Does not appear to be responding to internal stimuli. Does not appear to be endorsing any bizarre or paranoid ideation. Judgment: fair Insight: fair Orientation: Alert and orientated 3 Cognition: Grossly normal Recent and remote memory: Intact Attention span and concentration: Intact Fund of knowledge: Adequate Mood: "okay" Affect: Euthymic with a full range Follow Up The social work team worked during the predischarge meeting in order to evaluate for further issues of lethality address them fully before discharge. They worked on safety planning with the patient's family members in order to ensure that the patient will have a safe and effective discharge. Time Spent The amount of time spent in the coordination of care for this patient was approximately 30 minutes. Monday Vital Signs/I&Os Vital Signs Date Time Temp Pulse Resp B/P (MAP) Pulse Ox O2 Delivery O2 Flow Rate FiO2 06/10/19 06:33 98.8 62 12 90/51 (64) 06/08/19 06:47 99 Medications Scheduled Nicotine (Nicotine Patch) 14 Mg Patch.td24, 1 PATCH TOP DAILY for smoking c essation for 28 Days, #28 Paliperidone (Paliperidone ER) 3 Mg Tab.er.24, 3 MG PO QHS for psychosis for 7 Days, #7 Allergies Coded Allergies: Gluten Flour (Verified Allergy, Unknown, 08/11/18) LENARD POE DO Jun 10, 2019 09:39
[2019-06-10] MEDS ORDERED: PALI1TAB2 PO (17:08)
--- NOTE | 2019-06-10 20:31 | MHIPN ---
DATE: 06/09/2019 VITAL SIGNS: Temperature 97.7, pulse 112, respirations 16, blood pressure 90/51. MEDICATIONS: - lorazepam 2 mg every six hours as needed - Haldol 5 mg every six hours as needed - trazodone 50 mg at bedtime as needed HISTORY OF PRESENT ILLNESS: The patient is still spending a lot of time in bed. She is not attending groups. The patient explains that she did not sleep for four days prior to admission. The patient did get one dose of as-needed Haldol yesterday and appeared to tolerate it well. She is not on a regular dose, however, of antipsychotics. The patient states her mood is better today. She feels less depressed. The patient is seen lying in bed again today. She has no other complaints. MENTAL STATUS EXAMINATION: The patient is alert and oriented. She is somewhat more verbal than yesterday. The patient is still lying in bed. She still denies any current psychotic symptoms. Her speech is tangential, however, and with apparent bizarre delusional comments. Her affect is brighter today. Depressive symptoms less prominent per her report. She is not homicidal or suicidal. Insight and judgment remain fair. DIAGNOSES: 1. Psychotic disorder, unspecified. 2. Rule out substance induced psychosis. 3. Methamphetamine use disorder. 4. Cocaine use disorder. 5. Cannabis use disorder. PLAN: Continue with present management. Encourage milieu therapy involvement.
--- NOTE | 2019-06-10 23:39 | IPN ---
DATE: 06/10/2019 She is a 29-year-old female who is currently on the mental health unit for an unspecific psychotic disorder. She is doing much better today and will be being discharged. We were asked to see her to followup on a large plantar wart and callus on the bottom of her right foot. She has been soaking it with warm water. There is no redness. OBJECTIVE: Vital signs: Stable. Patient is alert and oriented. Pupils equal and react to light. Extraocular movements intact. Pharynx, tongue, gums pink and moist. Tongue is midline. Neck is supple without lymphadenopathy. No thyromegaly. No goiter. Chest: Clear to auscultation without wheeze or retraction. Heart is regular. Abdomen is benign. Bowel sounds are positive. Genitourinary ()/rectal: Not done. Extremities: No cyanosis, clubbing, or edema. Peripheral pulse equal and palpable bilaterally. Skin: Warm. Callus has large deep crack in it on the pad of the foot and a large plantar wart. No redness or drainage. IMPRESSION/PLAN: History of elevated liver function tests (LFTs), improving. Followup with primary care provider. History positive for hepatitis C. Recommend followup with outpatient referral to podiatry Dr. Bianchi, and she was given an appointment to be seen tomorrow at his office 10:15 a.m. LORI
== END 2019-06-10 11:20 | disposition home or self-care (01) | DRG 751 ==
LOC: M ED 21:01 → M ED INP 06-06 01:27 → M PSY 06-06 02:08
PROVIDERS: ADMIT Psychiatry & Neurology Psychiatry; ATTEND Psychiatry & Neurology Addiction Medicine
DX: F29 Unspecified psychosis not due to a substance or known physiological condition (principal); F14.20 Cocaine dependence, uncomplicated; F12.20 Cannabis dependence, uncomplicated; F16.129 Hallucinogen abuse with intoxication, unspecified; R74.0 Nonspecific elevation of levels of transaminase and lactic acid dehydrogenase [LDH]; L84 Corns and callosities; F15.23 Other stimulant dependence with withdrawal; Z79.899 Other long term (current) drug therapy

== ENCOUNTER 2019-08-01 11:35 | Inpatient (IN) | payer OTHER ==
[~2019-08-01] VITALS: Ht 165.1 cm; Wt 66.0 kg
[~2019-08-01 11:35] MED LIST changes: +NICO14PA TOP
[2019-08-01 12:40] LABS: HEMATOCRIT 39.6 % (36.0-47.0); HEMOGLOBIN 13.6 g/dl (12.0-15.5); MEAN CORPUSCULAR HEMOGLOBIN 32.6 pg (27.0-33.0); MEAN CORPUSCULAR HGB CONC 34.3 g/dl (32.0-36.5); PLATELET COUNT, AUTOMATED 230 10^3/uL (150-450); RED BLOOD COUNT 4.17 10^6/uL (4.00-5.40); WHITE BLOOD COUNT 12.8 10^3/uL (4.0-10.0)
[2019-08-01 13:10] LABS: AMPHETAMINES LEVEL URINE NEGATIVE (NEGATIVE); BARBITURATES URINE NEGATIVE (NEGATIVE); BENZODIAZEPINES URINE NEGATIVE (NEGATIVE); CANNABINOIDS URINE NEGATIVE (NEGATIVE); COCAINE METABOLITE URINE POSITIVE (NEGATIVE); METHADONE URINE NEGATIVE (NEGATIVE); OPIATES URINE NEGATIVE (NEGATIVE); PHENCYCLIDINE URINE NEGATIVE (NEGATIVE)
[2019-08-01 13:19] LABS: ACETAMINOPHEN LEVEL < 2.0 UG/ML (10.0-30.0); ALBUMIN 3.9 GM/DL (3.2-5.2); ALT/SGPT 152 U/L (12-78); BILIRUBIN,DIRECT 0.3 MG/DL (0.0-0.2); BILIRUBIN,TOTAL 0.5 MG/DL (0.2-1.0); BLOOD UREA NITROGEN 7 MG/DL (7-18); CALCIUM LEVEL 9.4 MG/DL (8.5-10.1); CARBON DIOXIDE LEVEL 25 MEQ/L (21-32); CHLORIDE LEVEL 105 MEQ/L (98-107); CREATININE FOR GFR 0.92 MG/DL (0.55-1.30); ETHYL ALCOHOL (ETHANOL) < 0.003 % (0.000-0.010); GLOMERULAR FILTRATION RATE > 60.0 (>60); GLUCOSE, FASTING 106 MG/DL (70-100); POTASSIUM SERUM 3.7 MEQ/L (3.5-5.1); SALICYLATE LEVEL 2.1 MG/DL (5.0-30.0); SODIUM LEVEL 138 MEQ/L (136-145); TOTAL PROTEIN 7.5 GM/DL (6.4-8.2)
[2019-08-01 13:43] LABS: HCG, SERUM QUALITATIVE NEGATIVE (NEGATIVE)
[2019-08-01] MEDS ORDERED: MAALOX 30 ML SUSP *UDC PO PRN (14:45)
[2019-08-01] MEDS ORDERED: MOM 30ML SUSPENSION UDC PO PRN (14:45)
[2019-08-01 16:15] VITALS: BP 145/97
[2019-08-01] MEDS: NICOTINE 14 MG/24 HR TRANSDERMAL TD SCH (17:17)
[2019-08-01] MEDS ORDERED: diphenhydrAMINE 50 MG CAP PO ONE (18:00)
[2019-08-01] MEDS ORDERED: LORazepam 2 MG TAB PO ONE (18:00)
[2019-08-01] MEDS ORDERED: HALOPERIDOL 5 MG TAB PO ONE (18:00)
[2019-08-02] MEDS: LORazepam 2 MG TAB PO PRN ×2 (00:26→20:07)
[2019-08-02] MEDS: diphenhydrAMINE 50 MG CAP PO PRN ×2 (00:26→20:07)
[2019-08-02] MEDS: HALOPERIDOL 5 MG TAB PO PRN ×2 (00:26→20:07)
[2019-08-02] MEDS: traZODone 50 MG TAB PO PRN ×2 (00:26→20:07)
[2019-08-02 06:14] VITALS: BP 124/65
[2019-08-02] MEDS: NICOTINE 14 MG/24 HR TRANSDERMAL TD SCH (09:00)
[2019-08-02] MEDS: ACETAMINOPHEN TAB 650MG DOSE (2X325MG) PO PRN ×2 (10:31→11:35)
[2019-08-02] MEDS ORDERED: PALIPERIDONE 3 MG ER TAB (INVEGA) PO ONE (11:00)
--- NOTE | 2019-08-02 11:00 | MHHPEPDOC ---
General Date Of Admission: Aug 01, 2019 Legal Status: 9.39 Chief Complaint "They took me from my home." History of Present Illness HISTORY OF THE PRESENT ILLNESS: Patient is a 29 -year-old , female, with a history of bipolar d/o with psychosis and substance abuse last admitted [facility] 06/06/19 who was brought to ED by PD under 9.[address] Moeller after pt's mother called Dr. Moeller stating pt was psychotic, paranoid, and disorganized. Per ED, pt was talking about "risa boxes," how she can make everyone in [place] rich, and specific people that are trying to kill her and are on her home's roof try to break in. Per ED, pt was guarded, psychotic, paranoid, and disorganized. Pt is a poor historian secondary to psychosis and her history was gathered from previous hospital records. Psychiatric Review of Systems Sonja (4 or more days of): irritable/elevated mood, expansive mood, grandiosity, talkativity, pressured, flight of ideas, distractibility, goal- directed activities Psychosis: delusions, paranoia, disorganization PTSD: denies Anxiety: stressor related anxiety Anxiety/ 6 months or more of: restlessness, keyed up, difficulty concentrating Past Psychiatric History Previous Psychiatric Diagnosis: Psychosis and ADHD Previous Psychiatric Admissions: [facility] 06/06/19 for psychosis. Suicide Attempts: denies Psychiatric Follow-up: Dr. Moeller [facility] Psychiatric medications: risperdal in the past, invega 3mg bid when last admitted Past Medical History Medical Problems denies Head Injury: No Seizures: No Hospitalizations: No Surgeries: No Family Medical/Psychiatric HX Medical Problems noncontributory Psychiatric Disorders: No Addiction: No Suicide Attemps/Completions: No Addiction History nicotine, cocaine ([place] [facility] in past. Utox currently positive), amphetamines (in past), other (cannabis in past) Social History Childhood: born and raised in [place] by maternal grandparents, aunts, and uncles due to parents starting a business. Great childhood, one younger sister. Abuse/Trauma:denies Current Living Situation: lives in [place] with her girlfriend Education: high school edu Employment: unemployed Social Support: family although most like in [place] except mother who is in [place] Legal: DWI five years ago, none currently Marital: single, never , 1 daughter 4yrs old living with her mother Mental Status Examination General Appearance: unkempt, disheveled, appears stated age, hospital scubs/clothing Build: average Demeanor: withdrawn, preoccupied, guarded Eye Contact: fair Activity: average Behavior: cooperative, withdrawn Speech: clear, normal volume, non-spontaneous Mood: euthymic Mood "I'm still scared on the risa box in my home." Affect: constricted, flat Thought Process: concrete, associative Thought Content (Delusions): paranoia, delusions, other (denies SI/HI, AH (screaming thru risa box at home)) Thought Content (Other): preoccupied, guarded, ideas of reference, internal- stimuli, appears paranoid Thought Content (Aggressive): none reported Perception (Hallucinations): auditory (screaming thru risa box at home) Perception (Other): none reported Cognition (Impairment of): none reported Cognition(Intelligence Est.): average Oriented: Awake, Alert, Oriented times three Insight: poor Judgment: Poor Psychosis: Associations, Psychotic Perceptions Diagnoses Bipolar 1 d/o MRE sonja with psychosis R/O substance induced psychosis secondary cocaine cocaine use d/o A-FIB/CHADSVASC A-FIB History Current/History of A-Fib/PAF?: No Assessment Pt seen and states "I scared of risa box in my house... hearing screaming and stuff." Otherwise, guarded and states "I'm not sick or anything." States she sleeps 9 hours nightly and is eating well. Not open to supplying any further information. She appears less manic, hyperverbal today but continues to endorse paranoia regarding a "risa box" in her house and hearing screaming and other t hings (AH). Her attention appears improved today. Is agreeable to restarting invega 3mg bid for sonja and psychosis with plan for invega sustenna for med compliance prior d/c. Initial Treatment Plan 1. Patient was admitted on a 9.39 status. 2. Complete history was obtained. 3. With patients permission, family will be contacted and database will be expanded. 4. Patients medication regimen will be reviewed and changed accordingly. 5. Patient will be provided with protected environment. 6. Patient will be treated with individual, group, and milieu therapies. 7. Patient will receive supportive psych-education. 8. Discharge planning will commence immediately. 9. Outpatient follow-up treatment will be strongly recommended. 10. The initial treatment plan will focus initially on: * Depression. * Risk for suicide. 11. invega 3mg bid ESTIMATED LENGTH OF STAY: 5-7 DAYS. TIME SPENT COUNSELING AND COORDINATING INITIAL CARE: 60 minutes. Vital Signs Vital Signs Date Time Temp Pulse Resp B/P (MAP) Pulse Ox O2 Delivery O2 Flow Rate FiO2 08/02/19 06:14 97.3 88 16 124/65 (84) 08/01/19 16:15 95 08/01/19 11:54 Room Air Laboratory Data 24H Labs Laboratory Tests 2 08/01/19 12:28: Nucleated Red Blood Cells % (auto) 0.0, Anion Gap 8, Glomerular Filtration Rate > 60.0, Calcium Level 9.4, Aspartate Amino Transf (AST/SGOT) 51H, Alanine Aminotransferase (ALT/SGPT) 152H, Alkaline Phosphatase 65, Total Bilirubin 0.5, Direct Bilirubin 0.3H, Total Protein 7.5, Albumin 3.9, Albumin/Globulin Ratio 1.08, Thyroid Stimulating Hormone (TSH) 1.010, Salicylates Level 2.1L, Urine Amphetamines Screen NEGATIVE, Urine Benzodiazepines Screen NEGATIVE, Urine Opiates Screen NEGATIVE, Urine Methadone Screen NEGATIVE, Acetaminophen Level < 2.0L, Urine Barbiturates Screen NEGATIVE, Urine Phencyclidine Screen NEGATIVE, Urine Cocaine Metabolite Screen POSITIVEH, Urine Cannabinoids Screen NEGATIVE, Ethyl Alcohol Level < 0.003 08/01/19 13:22: Human Chorionic Gonadotropin, Qual NEGATIVE CBC/BMP Laboratory Tests 08/01/19 12:28 Red Blood Count 4.17, Mean Corpuscular Volume 95.0, Mean Corpuscular Hemoglobin 32.6, Mean Corpuscular Hemoglobin Concent 34.3, Red Cell Distribution Width 12.7 Medications Unable to Obtain Active Prescriptions or Reported Meds Allergies Coded Allergies: Gluten Flour (Verified Allergy, Unknown, 08/11/18) ELLA TAYLOR DO Aug 02, 2019 11:00
[2019-08-02 17:29] VITALS: BP 94/54
[2019-08-02] MEDS: PALIPERIDONE 3 MG ER TAB (INVEGA) PO SCH (20:07)
--- NOTE | 2019-08-03 06:39 | HPE ---
DATE OF ADMISSION: 08/01/2019 HISTORY OF PRESENT ILLNESS: Please refer to psychiatric history and evaluation for further details on this admission. This examination and history is intended for medical issues, which may need treatment, followup, or consult on this 29-year-old female. ALLERGIES: GLUTEN FLOUR and CIMETIDINE. PAST MEDICAL HISTORY: Depression. SOCIAL HISTORY: She is single. She does not drink alcohol. She has a history of polysubstance abuse. Urine drug screen was positive for cocaine. PAST MEDICAL HISTORY: Hepatitis C. She is currently seeing Dr. Gillette. Is on Mavyret. History of plantar warts on foot being treated by Dr. Bianchi and seasonal allergies. Depression. PAST SURGICAL HISTORY: Negative. FAMILY HISTORY: Was reviewed and nonsignificant family history. HOME MEDICATIONS: - Mavyret 100/40 mg three tablets daily - paliperidone 3 mg nightly LABORATORY STUDIES: WBC 12.8, hemoglobin 13.6, hematocrit 39.6, platelets 230. Sodium 138, potassium 3.7, chloride 105, CO2 25, BUN 7, creatinine 0.91, AST 51, ALT 152. Ten systems review was done. Was unremarkable. She had no current complaint. PHYSICAL EXAMINATION: A 29-year-old cooperative female, in no acute distress. Height 65 inches, weight 61.2 kg, body mass index (BMI) 22.5, blood pressure 124/65, pulse 88, respirations 16, temperature 97.3. Pupils equal and react to light. Extraocular movements (EOMs) intact. Cornea and sclerae clear. Conjunctivae normal. No facial asymmetry. Pharynx, tongue, gums pink and moist. Tongue is midline. NECK: Is supple without lymphadenopathy. No thyromegaly. No goiter. Carotids 2+ without bruit. CHEST: Clear to auscultation without wheeze or retraction. HEART: Is regular. ABDOMEN: Benign. Bowel sounds positive. GENITOURINARY ()/RECTAL: Not done. EXTREMITIES: Show equal strength, full range of motion. No cyanosis, clubbing, or edema. Left foot has healing very small mild plantar wart. Peripheral pulses equal and palpable bilaterally. IMPRESSION AND PLAN: 1. Psychiatric plan per psychiatry. 2. Left foot, continued followup with Dr. Bianchi, for care of plantar wart. 3. Hepatitis C. Continued followup with Dr. Gillette. Continue Mavyret as ordered by Dr. Gillette. 4. Venous thromboembolism (VTE). Low risk for VTE. Early ambulation. 5. Leukocytosis, probably reactive. Monitor treatment. The patient has no signs or symptoms of acute infectious process. Will recheck in the a.m.
[2019-08-03 06:42] VITALS: BP 100/58
[2019-08-03 07:26] LABS: BASO % 0.5 % (0.0-1.0); EOS # 0.2 10^3/uL (0.0-0.5); HEMATOCRIT 42.1 % (36.0-47.0); HEMOGLOBIN 14.6 g/dl (12.0-15.5); LYMPH # 2.4 10^3/uL (1.5-5.0); MEAN CORPUSCULAR HEMOGLOBIN 33.1 pg (27.0-33.0); MEAN CORPUSCULAR HGB CONC 34.7 g/dl (32.0-36.5); MEAN CORPUSCULAR VOLUME 95.5 fl (80.0-96.0); MONO # 0.4 10^3/uL (0.0-0.8); MONO % 6.9 % (0.0-5.0); NEUTROPHILS % 49.3 % (36.0-66.0); PLATELET COUNT, AUTOMATED 218 10^3/uL (150-450); RED BLOOD COUNT 4.41 10^6/uL (4.00-5.40); WHITE BLOOD COUNT 6.1 10^3/uL (4.0-10.0)
[2019-08-03 07:54] LABS: ALBUMIN 3.5 GM/DL (3.2-5.2); BILIRUBIN,DIRECT 0.1 MG/DL (0.0-0.2); BILIRUBIN,TOTAL 0.7 MG/DL (0.2-1.0); TOTAL PROTEIN 6.8 GM/DL (6.4-8.2)
[2019-08-03] MEDS: NICOTINE 14 MG/24 HR TRANSDERMAL TD SCH ×2 (09:00→17:16)
--- NOTE | 2019-08-03 09:06 | MHIPNPDOC ---
[facility] Progress Note Progress Note DATE OF SERVICE: 08/03/19 HISTORY: Patient is a 29 -year-old , female, with a history of bipolar d/o with psychosis and substance abuse last admitted [facility] 06/06/19 who was brought to ED by PD under 9.[address] Moeller after pt's mother called Dr. Moeller stating pt was psychotic, paranoid, and disorganized. Per ED, pt was talking about "risa boxes," how she can make everyone in [place] rich, and specific people that are trying to kill her and are on her home's roof try to break in. Per ED, pt was guarded, psychotic, paranoid, and disorganized. Pt is a poor historian secondary to psychosis and her history was gathered from previous hospital records. Pt seen and states "I scared of risa box in my house... hearing screaming and stuff." Otherwise, guarded and states "I'm not sick or anything." States she sleeps 9 hours nightly and is eating well. Not open to supplying any further information. She appears less manic, hyperverbal today but continues to endorse paranoia regarding a "risa box" in her house and hearing screaming and other things (AH). Her attention appears improved today. Is agreeable to restarting invega 3mg bid for percy and psychosis with plan for invega sustenna for med compliance prior d/c. VITAL SIGNS: See below. NEW TEST RESULTS: See below. CURRENT MEDICATIONS: See below. MENTAL STATUS EXAMINATION: General Appearance: unkempt, disheveled, appears stated age, hospital scubs/clothing Build: average Demeanor: withdrawn, preoccupied, guarded Eye Contact: fair Activity: average Behavior: cooperative, withdrawn Speech: clear, normal volume, non-spontaneous Mood: euthymic Mood "I'm still scared on the risa box in my home." Affect: constricted, flat Thought Process: concrete, associative Thought Content (Delusions): paranoia, delusions, other (denies SI/HI, AH (screaming thru risa box at home)) Thought Content (Other): preoccupied, guarded, ideas of reference, internal- stimuli, appears paranoid Thought Content (Aggressive): none reported Perception (Hallucinations): auditory (screaming thru risa box at home) Perception (Other): none reported Cognition (Impairment of): none reported Cognition(Intelligence Est.): average Oriented: Awake, Alert, Oriented times three Insight: poor Judgment: Poor Psychosis: Associations, Psychotic Perceptions DIAGNOSES: Bipolar 1 d/o MRE percy with psychosis R/O substance induced psychosis secondary cocaine cocaine use d/o ASSESSMENT:Pt seen and states she feels "alright" just a little tired after taking invega this morning as it makes her sleepy. She endorses improved paranoid delusions regarding the "risa box" in her house this morning. She no longer appears manic with the start and compliance of oral invega. She is agreeable to invega sustenna in the future for med compliance. Advised her am sedation should be less as well when on invega sustenna compared to oral and stated ok. She's occasionally social on the milieu which is beneficial. States she slept well last night. Feels she is tolerating her medications and they're beneficial. She is attending some groups and finding them helpful. She denies SI/HI. Pt feels safe here. MANAGEMENT PLAN: invega sustenna im tomorrow with tolerance oral invega invega 3mg bid TIME SPENT: 30 minutes. Vital Signs Vital Signs Date Time Temp Pulse Resp B/P (MAP) Pulse Ox O2 Delivery O2 Flow Rate FiO2 08/03/19 06:42 98.4 64 12 100/58 (72) 08/01/19 16:15 95 08/01/19 11:54 Room Air Laboratory Data 24H Labs Laboratory Tests 2 08/03/19 06:55: Immature Granulocyte % (Auto) 0.3, White Blood Count 6.1, Red Blood Count 4.41, Hemoglobin 14.6, Hematocrit 42.1, Mean Corpuscular Volume 95.5, Mean Corpuscular Hemoglobin 33.1H, Mean Corpuscular Hemoglobin Concent 34.7, Red Cell Distribution Width 12.7, Platelet Count 218, Neutrophils (%) (Auto) 49.3, Lymphocytes (%) (Auto) 40.0, Monocytes (%) (Auto) 6.9H, Eosinophils (%) (Auto) 3.0, Basophils (%) (Auto) 0.5, Neutrophils # (Auto) 3.0, Lymphocytes # (Auto) 2.4, Monocytes # (Auto) 0.4, Eosinophils # (Auto) 0.2, Basophils # (Auto) 0.0, Nucleated Red Blood Cells % (auto) 0.0, Aspartate Amino Transf (AST/SGOT) 25, Alanine Aminotransferase (ALT/SGPT) 104H, Alkaline Phosphatase 59, Total Bilirubin 0.7, Direct Bilirubin 0.1, Total Protein 6.8, Albumin 3.5, Albumin/Globulin Ratio 1.06 CBC/BMP Laboratory Tests 08/03/19 06:55 Red Blood Count 4.41, Mean Corpuscular Volume 95.5, Mean Corpuscular Hemoglobin 33.1 H, Mean Corpuscular Hemoglobin Concent 34.7, Red Cell Distribution Width 12.7, Neutrophils (%) (Auto) 49.3, Lymphocytes (%) (Auto) 40.0, Monocytes (%) (Auto) 6.9 H, Eosinophils (%) (Auto) 3.0, Basophils (%) (Auto) 0.5, Neutrophils # (Auto) 3.0, Lymphocytes # (Auto) 2.4, Monocytes # (Auto) 0.4, Eosinophils # (Auto) 0.2, Basophils # (Auto) 0.0 Current Medications Current Medications Medications (Trade) Dose Ordered Sig/Walt Route PRN Reason Start Time Stop Time Status Last Admin Dose Admin Acetaminophen (Tylenol Tab) 650 mg Q6HP PRN PO HEADACHE or DISCOMFORT 08/01/19 14:45 08/02/19 11:35 Al Hydrox/Mg Hydrox/Simethicone (Mylanta) 30 ml Q4HP PRN PO HEARTBURN/INDIGESTION 08/01/19 14:45 Diphenhydramine HCl (Benadryl) 50 mg Q4HP PRN PO ANXIETY/AGITATION 08/01/19 18:00 08/02/19 20:07 Haloperidol (Haldol) 5 mg Q4HP PRN PO AGITATION 08/01/19 18:00 08/02/19 20:07 Home Med (Med Rec Complete!) ASDIRECTED XX 08/01/19 15:00 08/01/19 14:54 DC Lorazepam (Ativan) 2 mg Q4HP PRN PO ANXIETY/AGITATION 08/01/19 18:00 08/02/19 20:07 Magnesium Hydroxide (Milk Of Magnesia) 30 ml DAILYPRN PRN PO CONSTIPATION 08/01/19 14:45 Nicotine (Nicoderm Cq 14mg) 1 patch DAILY TD 08/01/19 16:00 08/01/19 17:17 Paliperidone (Invega) 3 mg BID PO 08/02/19 21:00 08/02/19 20:07 Trazodone HCl (Desyrel) 50 mg QHSP PRN PO INSOMNIA 08/01/19 21:00 08/02/19 20:07 Allergies Coded Allergies: Gluten Flour (Verified Allergy, Unknown, 08/11/18) ELLA TAYLOR DO Aug 03, 2019 9:06 am
[2019-08-03] MEDS: PALIPERIDONE 3 MG ER TAB (INVEGA) PO SCH ×2 (09:29→19:26)
[2019-08-03 15:59] VITALS: BP 92/51
[2019-08-03] MEDS: diphenhydrAMINE 50 MG CAP PO PRN ×2 (18:25→19:25)
[2019-08-03] MEDS: traZODone 50 MG TAB PO PRN (19:26)
[2019-08-04 06:34] VITALS: BP 90/49
[2019-08-04] MEDS: PALIPERIDONE 3 MG ER TAB (INVEGA) PO SCH (08:36)
[2019-08-04] MEDS: NICOTINE 14 MG/24 HR TRANSDERMAL TD SCH ×2 (08:36→09:53)
--- NOTE | 2019-08-04 09:31 | MHIPNPDOC ---
[facility] Progress Note Progress Note DATE OF SERVICE: 08/04/19 HISTORY: Patient is a 29 -year-old , female, with a history of bipolar d/o with psychosis and substance abuse last admitted [facility] 06/06/19 who was bro ught to ED by PD under 9.[address] Moeller after pt's mother called Dr. Moeller stating pt was psychotic, paranoid, and disorganized. Per ED, pt was talking about "risa boxes," how she can make everyone in [place] rich, and specific people that are trying to kill her and are on her home's roof try to break in. Per ED, pt was guarded, psychotic, paranoid, and disorganized. Pt is a poor historian secondary to psychosis and her history was gathered from previous hospital records. Pt seen and states "I scared of risa box in my house... hearing screaming and stuff." Otherwise, guarded and states "I'm not sick or anything." States she sleeps 9 hours nightly and is eating well. Not open to supplying any further information. She appears less manic, hyperverbal today but continues to endorse paranoia regarding a "risa box" in her house and hearing screaming and other things (AH). Her attention appears improved today. Is agreeable to restarting invega 3mg bid for percy and psychosis with plan for invega sustenna for med compliance prior d/c. VITAL SIGNS: See below. NEW TEST RESULTS: See below. CURRENT MEDICATIONS: See below. MENTAL STATUS EXAMINATION: General Appearance: clean, appears stated age, hospital scrubs/clothing Build: average Demeanor: cooperative, less preoccupied Eye Contact: good Activity: average Behavior: cooperative Speech: clear, normal volume, non-spontaneous Mood: euthymic Mood "better" Affect: more euthymic and full Thought Process: linear and logical , less associative Thought Content (Delusions): improving paranoia, delusions, other (denies SI/HI, AVH) Thought Content (Other): less preoccupied. improved ideas of reference, paranoia Thought Content (Aggressive): none reported Perception (Hallucinations): denies Perception (Other): none reported Cognition (Impairment of): none reported Cognition(Intelligence Est.): average Oriented: Awake, Alert, Oriented times three Insight: poor Judgment: Poor Psychosis: Associations, Psychotic Perceptions DIAGNOSES: Bipolar 1 d/o MRE percy with psychosis R/O substance induced psychosis secondary cocaine cocaine use d/o ASSESSMENT:Pt seen and states she feels "better" less tired after taking invega this morning, motivated to be up thru out the day. States she's really finding invega beneficial, likes it, and is motivated to be compliant on it. She endorses improving paranoid delusions regarding the "risa box" in her house this morning. She no longer appears manic with the start and compliance of oral invega. She is agreeable to invega sustenna 234mg im today and 156mg im in 3 days med compliance. Advised again her am sedation should be less as well when on invega sustenna compared to oral and stated ok. She's more social on the milieu which is beneficial. States she slept well last night. Feels she is tolerating her medications and they're beneficial. She is attending all groups and finding them helpful. She denies SI/HI. Pt feels safe here. MANAGEMENT PLAN: invega sustenna im tomorrow with tolerance oral invega invega 3mg bid TIME SPENT: 30 minutes. Vital Signs Vital Signs Date Time Temp Pulse Resp B/P (MAP) Pulse Ox O2 Delivery O2 Flow Rate FiO2 08/04/19 06:34 96.8 72 14 90/49 (63) 08/01/19 16:15 95 08/01/19 11:54 Room Air Current Medications Current Medications Medications (Trade) Dose Ordered Sig/Walt Route PRN Reason Start Time Stop Time Status Last Admin Dose Admin Acetaminophen (Tylenol Tab) 650 mg Q6HP PRN PO HEADACHE or DISCOMFORT 08/01/19 14:45 08/02/19 11:35 Al Hydrox/Mg Hydrox/Simethicone (Mylanta) 30 ml Q4HP PRN PO HEARTBURN/INDIGESTION 08/01/19 14:45 Diphenhydramine HCl (Benadryl) 50 mg Q4HP PRN PO ANXIETY/AGITATION 08/01/19 18:00 08/03/19 19:25 Haloperidol (Haldol) 5 mg Q4HP PRN PO AGITATION 08/01/19 18:00 08/02/19 20:07 Home Med (Med Rec Complete!) ASDIRECTED XX 08/01/19 15:00 08/01/19 14:54 DC Lorazepam (Ativan) 2 mg Q4HP PRN PO ANXIETY/AGITATION 08/01/19 18:00 08/02/19 20:07 Magnesium Hydroxide (Milk Of Magnesia) 30 ml DAILYPRN PRN PO CONSTIPATION 08/01/19 14:45 Nicotine (Nicoderm Cq 14mg) 1 patch DAILY TD 08/01/19 16:00 08/03/19 17:16 Paliperidone (Invega) 3 mg BID PO 08/02/19 21:00 08/04/19 08:36 Trazodone HCl (Desyrel) 50 mg QHSP PRN PO INSOMNIA 08/01/19 21:00 08/03/19 19:26 Allergies Coded Allergies: Gluten Flour (Verified Allergy, Unknown, 08/11/18) ELLA TAYLOR DO Aug 04, 2019 9:31 am
[2019-08-04] MEDS ORDERED: PALIPERIDONE PALMITATE 234MG/1.5ML INJ (INVEGA)(J2426)(FREE PSY INPT ONLY) IM ONE (11:00)
[2019-08-04 15:54] VITALS: BP 101/56
[2019-08-04] MEDS: traZODone 50 MG TAB PO PRN (20:32)
[2019-08-04] MEDS: diphenhydrAMINE 50 MG CAP PO PRN (20:32)
[2019-08-05 06:22] VITALS: BP 103/59
[2019-08-05] MEDS: NICOTINE 14 MG/24 HR TRANSDERMAL TD SCH (09:53)
[2019-08-05] MEDS ORDERED: NICO14PA TD (10:07)
[2019-08-05] MEDS ORDERED: INVE156I IM (10:09)
[2019-08-05] MEDS ORDERED: [UNRECOGNIZED DRUG - OTHER] IM (10:09)
--- NOTE | 2019-08-05 10:10 | MHDSPDOC ---
[facility] Discharge Summary Discharge Summary DATE OF ADMISSION: Aug 01, 2019 at 14:32 DATE OF DISCHARGE: 08/05/19 Discharge Sera Daugherty Female Date of : N/A Date of Service: 08/05/2019 Diagnoses Unspecified psychotic disorder. Methamphetamine use disorder. Cocaine use disorder. Cannabis use disorder. Tobacco use disorder. History of Present Illness The patient, a 29-year-old woman, was admitted to [facility] after being found psychotic and in a manic state with pressured speech, talkativity and high distractibility. She was admitted and started on low-dose paliperidone. She was found with a positive toxicology screen for cocaine. Consultants Involved Hospitalist/PCP screening Treatment and Progress On The Unit The patient was admitted to the unit and subsequently started on paliperidone 3 mg daily with positive effects. Her psychosis resolved quickly over the next few days and she became euthymic and able to attend all of her needs. She was started on loading dose of 254 mg of Invega Sustenna and was triaged to have the second dose of 154 mg in the next few days, however, after discussing with the patient, she reported that she would be amenable to gain the shot as an outpatient. As she wished to go and no longer met involuntary criteria, as she had been denying any suicidal or homicidal ideation through the entirety of her stay and had been able to attend to her needs free of psychotic symptoms for the last several days prior to her discharge and declined further voluntary admission, thus, it was arranged for the patient to have her injection as an outpatient with instructions given and the patient was discharged in good antonio. Discharge Assessment 29-year-old woman with a history of significant substance use as well as psychosis with possible bipolar disorder, triaged on proper treatment with positive effects. She is placed on injectable antipsychotic as it is unlikely that she is compliant as an outpatient. Mental Status Examination General: Well dressed with good hygiene Speech: Spontaneous and fluid Thought processes: Linear and logical MSK: Smooth and coordinated gait, no signs of tremors or involuntary orofacial movements Thought content: Future orientated Abstract reasoning, and computation: Intact Description of associations: Intact Description of abnormal or psychotic thoughts: Denies any suicidal or homicidal ideation. Denies any auditory or visual hallucinations. Does not appear to be responding to internal stimuli. Does not appear to be endorsing any bizarre or paranoid ideation. Judgment: fair Insight: fair Orientation: Alert and orientated 3 Cognition: Grossly normal Recent and remote memory: Intact Attention span and concentration: Intact Fund of knowledge: Adequate Mood: "okay" Affect: Euthymic with a full range Follow Up The social work team worked during the predischarge meeting in order to evaluate for further issues of lethality address them fully before discharge. They worked on safety planning with the patient's family members in order to ensure that the patient will have a safe and effective discharge. Time Spent The amount of time spent in the coordination of care for this patient was approximately 30 minutes. Monday Vital Signs/I&Os Vital Signs Date Time Temp Pulse Resp B/P (MAP) Pulse Ox O2 Delivery O2 Flow Rate FiO2 08/05/19 06:22 97.5 69 12 103/59 (74) 08/01/19 16:15 95 08/01/19 11:54 Room Air Medications Scheduled Nicotine (Nicotine Patch) 14 Mg Patch.td24, 1 PATCH TD DAILY for tobacco for 30 Days, #30 Paliperidone Palmitate (Invega Sustenna) 156 Mg/1 Ml Syringe, 156 MG IM ONCE for thoughts for 30 Days, #1 Please give one injection of invega sustenna 154mg IM every 30 days Miscellaneous Medications [Injection] 1 INJ, 1 UNIT IM for thoughts for 30 Days Allergies Coded Allergies: Gluten Flour (Verified Allergy, Unknown, 08/11/18) LENARD POE DO Aug 05, 2019 10:10
[2019-08-07] MEDS ORDERED: PALIPERIDONE PALMITATE 156MG/1ML INJ(INVEGA)(J2426 PER 1MG)(INFUS OUTPT) IM ONE (09:00)
== END 2019-08-05 14:25 | disposition home or self-care (01) | DRG 751 ==
LOC: M ED 11:35 → M ED INP 14:32 → M PSY 16:14
PROVIDERS: ADMIT Psychiatry & Neurology Psychiatry; ATTEND Psychiatry & Neurology Addiction Medicine
DX: F29 Unspecified psychosis not due to a substance or known physiological condition (principal); F15.20 Other stimulant dependence, uncomplicated; F12.20 Cannabis dependence, uncomplicated; F14.159 Cocaine abuse with cocaine-induced psychotic disorder, unspecified; F31.2 Bipolar disorder, current episode manic severe with psychotic features; F17.210 Nicotine dependence, cigarettes, uncomplicated; Z88.8 Allergy status to other drugs, medicaments and biological substances; Z79.899 Other long term (current) drug therapy; B07.0 Plantar wart; B19.20 Unspecified viral hepatitis C without hepatic coma; D72.829 Elevated white blood cell count, unspecified; Z91.018 Allergy to other foods

== ENCOUNTER → 2019-09-03 | Outpatient (REF) | payer OTHER ==
[~2019-09-03] MED LIST changes: +INVE156I IM; +NICO14PA TD; +[UNRECOGNIZED DRUG - OTHER] IM
[2019-09-03 14:30] LABS: ALBUMIN 3.8 GM/DL (3.2-5.2); BILIRUBIN,DIRECT 0.1 MG/DL (0.0-0.2); BILIRUBIN,TOTAL 0.6 MG/DL (0.2-1.0); TOTAL PROTEIN 7.4 GM/DL (6.4-8.2)
[2019-09-05 14:51] LABS: HEPATITIS C QUANTITATION HCV Not Detected IU/mL (.)
== END ==
LOC: M SFHCPLAZ 11:12
PROVIDERS: ATTEND Internal Medicine Infectious Disease
DX: B18.2 Chronic viral hepatitis C (principal)

== ENCOUNTER 2020-07-03 22:12 | Inpatient (IN) | payer OTHER ==
[~2020-07-03] VITALS: Ht 162.6 cm; Wt 62.8 kg
[~2020-07-03 22:12] MED LIST changes: +OMEP1CAP73 PO; -OMEP20CA4 PO
[2020-07-03 23:15] LABS: HEMATOCRIT 36.7 % (36.0-47.0); HEMOGLOBIN 12.4 g/dl (12.0-15.5); MEAN CORPUSCULAR HEMOGLOBIN 31.8 pg (27.0-33.0); MEAN CORPUSCULAR HGB CONC 33.8 g/dl (32.0-36.5); MEAN CORPUSCULAR VOLUME 94.1 fl (80.0-96.0); PLATELET COUNT, AUTOMATED 246 10^3/uL (150-450); WHITE BLOOD COUNT 8.3 10^3/uL (4.0-10.0)
[2020-07-03 23:45] LABS: AMPHETAMINES LEVEL URINE NEGATIVE (NEGATIVE); BARBITURATES URINE NEGATIVE (NEGATIVE); BENZODIAZEPINES URINE NEGATIVE (NEGATIVE); CANNABINOIDS URINE POSITIVE (NEGATIVE); COCAINE METABOLITE URINE NEGATIVE (NEGATIVE); METHADONE URINE NEGATIVE (NEGATIVE); OPIATES URINE NEGATIVE (NEGATIVE); PHENCYCLIDINE URINE NEGATIVE (NEGATIVE)
[2020-07-03 23:46] LABS: ACETAMINOPHEN LEVEL < 2.0 UG/ML (10.0-30.0); ALT/SGPT 18 U/L (12-78); BILIRUBIN,DIRECT < 0.1 MG/DL (0.0-0.2); BILIRUBIN,TOTAL 0.1 MG/DL (0.2-1.0); BLOOD UREA NITROGEN 9 MG/DL (7-18); CALCIUM LEVEL 8.6 MG/DL (8.5-10.1); CARBON DIOXIDE LEVEL 26 MEQ/L (21-32); CHLORIDE LEVEL 115 MEQ/L (98-107); CREATININE FOR GFR 0.81 MG/DL (0.55-1.30); ETHYL ALCOHOL (ETHANOL) 0.078 % (0.000-0.010); GLOMERULAR FILTRATION RATE > 60.0 (>60); GLUCOSE, FASTING 85 MG/DL (70-100); POTASSIUM SERUM 3.5 MEQ/L (3.5-5.1); SALICYLATE LEVEL 1.8 MG/DL (5.0-30.0); SODIUM LEVEL 145 MEQ/L (136-145); TOTAL PROTEIN 6.1 GM/DL (6.4-8.2)
[2020-07-03 23:55] LABS: HCG, SERUM QUALITATIVE NEGATIVE (NEGATIVE)
[2020-07-04] MEDS ORDERED: MAALOX 30 ML SUSP *UDC PO PRN (10:30)
[2020-07-04] MEDS ORDERED: MOM 30ML SUSPENSION UDC PO PRN (10:30)
[2020-07-04 18:00] VITALS: BP 108/55
[2020-07-05 06:42] VITALS: BP 99/59
--- NOTE | 2020-07-05 12:04 | MHHPEPDOC ---
[facility] History & Physical History and Physical DATE OF ADMISSION: Jul 04, 2020 at 10:28 LEGAL STATUS AT ADMISSION: 9.39 History of Present Illness HISTORY OF THE PRESENT ILLNESS: As per previous report from the ED " Pt has very pressured and incoherent speech. Pt is very guarded and seems to be minimizing. Pt has a history of non-compliance. It was reported to police that pt was arguing with Landlord about being friends with Sue Singh. Pt was brought to [facility] due to her bizarre and delusional thought process. Pt reports that she was a pt at [facility] will not disclose to tw why she was originally seen at [place]. Pt states "I feel fine; it's illegal for me to be here at [facility] and in [place]". Pt was asked what drugs she used last night, pt states "I don't use any drugs; you don't know what you're talking about". Pt reports that she has never been inpatient for Mental Health ever in her life time. Pts has had multiple inpatient visits to [facility] with her last admission being July of 2019. Pt reports that she doesn't want to talk anymore and would like tw to leave her room therefore interview was aborted prematurely." Psychiatric Review of Systems Depression: She report she sleeps well, appetite is good, she can focus, denies feeling sad or depressed, denies feeling hopeless or helpless, denies feeling guilty, denies SI Sonja: Denies being able to go w/o sleep for at least 4 nights, denies having lots of energy, denies grandiose thoughts, denies racing thought, denies being very talkative or having pressured speech Psychosis: She denies psychosis but she is disorganized and can't remember b eing here last year in July, May and April PTSD: denies Anxiety: Denies Anxiety/ 6 months or more: Denies Past Psychiatric History Previous Psychiatric Diagnosis: Psychosis and ADHD Previous Psychiatric Admissions: 3 previous psychiatric admissions in 2019 and one recent admission in 2019 Suicide Attempts: denies Psychiatric Follow-up: Dr. Moeller [facility] Psychiatric medications: risperdal in the past, invega ( oral) and CABRAL Past Medical History Medical Problems: the patient denies but she is trying to minimize her ental pro blems and medical problems Head Injury: Please read above Seizures: Please read above Hospitalizations: Please read above Surgeries: Please read above Family Medical/Psychiatric HX Medical Problems: she denies Psychiatric Disorders: Denies Addiction: Denies Suicide Attemps/Completions: Denies Addiction History nicotine, cocaine ([place] rehab in past. Utox currently positive), amphetamines (in past), other (cannabis in past) Social History Childhood: She says she was born in [place] and raised in [place] but previous records show she was born in [place]. She was raised by her grandparents. Denies having siblings Abuse/Trauma:denies Current Living Situation: She says she doesn't live in [place] but then, she says that she lives in [place] with a friend and she is not sure if she wants to keep living here. she says she has been staying with friends in [place]. Education: She says she finished Employment: unemployed Social Support: she says her grandparents are still alive and live in [place] but just 5 minutes ago she said they were in [place] Legal: DWI five years ago, none currently Marital: She says she has 4 children but they don't live with her. She's single, denies being in a relationship. Mental Status Examination Mental Status Examination General Appearance: Unkempt, disheveled, wearing hospital clothes Build: average Demeanor: Restless, very fidgety, a little bit guarded Eye Contact: fair Activity: Restless Behavior: superficially cooperative, she frequently stares off and doesn't answer my questions. she is disorganized and confused Speech: clear, normal volume, non-spontaneous, non fluent, normal tone and volume. Mood: euthymic Mood "Nothing is wrong with me, I don't know what you're talking about, I'm lived, I have everything I need, I'm full of love" Affect: constricted, flat Thought Process: concrete, associative Thought Content (Delusions): She is not endorsing paranoid delusions, but she is bizarre, she is disorganized, she could be responding to internal stimuli Thought Content (Other): preoccupied, guarded, internal-stimuli Thought Content (Aggressive): none reported Perception (Hallucinations): Possibly auditory hallucinations, although she denies them. Before being admitted she got into an [facility] about being friends with Sue Singh Perception (Other): none reported Cognition (Impairment of): she is easily distracted Cognition(Intelligence Est.): memory problems, sh swears she has never been admitted to [facility] when in fact she has had multiple admissions Oriented: Awake, Alert, Oriented partially to time and date Insight: poor Judgment: Poor Psychosis: Associations, Psychotic Perceptions Diagnoses 1. Unspecified psychotic disorder 2. R/O substance induced psychosis 3. H/o polysubstance abuse 4. Cannabis use disorder A-FIB/CHADSVASC SCREEN A-FIB/CHADSVASC A-FIB History Current/History of A-Fib/PAF?: No Assement/Plan the patient is disorganized and confused. She denies having TAV hallucinations but she frequently stares off, has delayed responses and at times she is incoherent. She is psychotic and she might be responing to internal stimuli. She is preoccupied about finding a place to live because she says she dis not going to stay with her friend anymore and she knows she has to go to [facility]. She tested positive for marijuana but she could have used other drugs that are not being te sted by our toxicology kits at the hospital. Initial Treatment Plan 1. Patient was admitted on a 9.39 status. 2. Complete history was obtained. 3. With patients permission, family will be contacted and database will be expanded. 4. Patients medication regimen will be reviewed and changed accordingly. 5. Patient will be provided with protected environment. 6. Patient will be treated with individual, group, and milieu therapies. 7. Patient will receive supportive psych-education. 8. Discharge planning will commence immediately. 9. Outpatient follow-up treatment will be strongly recommended. 10. The initial treatment plan will focus initially on: * Psychosis * Substance abuse * Non compliance * Poor judgment ESTIMATED LENGTH OF STAY: 5-7 DAYS. TIME SPENT COUNSELING AND COORDINATING INITIAL CARE: 60 minutes. Vital Signs Vital Signs Date Time Temp Pulse Resp B/P (MAP) Pulse Ox O2 Delivery O2 Flow Rate FiO2 07/05/20 06:42 97.9 72 16 99/59 (72) 98 07/04/20 14:06 Room Air Medications Unable to Obtain Active Prescriptions or Reported Meds Allergies Coded Allergies: Gluten Flour (Verified Allergy, Unknown, 08/11/18) A-FIB/CHADSVASC A-FIB History Current/History of A-Fib/PAF?: No Current PO Anticoag Therapy: No Age/Risk Factor Scoring CHADSVASC: CHADSVASC Response (Comments) Value Age Risk Factor Age < 65 years old 0 Gender Risk Factor Female 1 Hx of CHF No 0 Hx of HTN No 0 Hx of Stroke/TIA/or VTE No 0 Hx of Diabetes No 0 Hx of Vascular Disease No 0 Total 1 Treatment Treatment ordered: NONE Reason Anticoagulant not given: Not indicated/[email or web address] GOGO BROWNE MD Jul 05, 2020 12:04
[2020-07-05] MEDS: PALIPERIDONE 3 MG ER TAB (INVEGA) PO SCH ×2 (13:18→21:58)
[2020-07-05] MEDS: ACETAMINOPHEN TAB 650MG DOSE (2X325MG) PO PRN (14:18)
--- NOTE | 2020-07-05 16:10 | HPEPDOC ---
[facility] History & Physical Date of Admission Jul 05, 2020 Date of Service: Jul 05, 2020 History and Physical Chief complaint: Presented to the emergency room brought in by police for evaluation for pressured and incoherent speech Hospital services consultation for medical screening evaluation History of present illness: Patient is a 30-year-old female with no significant past medical history who has presented to [facility] emergency room, brought in by police for further evaluation for pressured / incoherent speech. Patient was admitted to the inpatient mental health unit under the care of psychiatry. Hospitalist service was consulted for medical screening evaluation. Currently patient denies any headache, nausea, vomiting, chest pain, shortness breath, palpitations, abdominal pain, constipation, diarrhea, or burning/discomfort with urination. She denies recent fevers, chills. Denies any changes in her appetite or weight. Past Medical History: Patient denies any prior medical history Past Surgical History: Patient denies any prior surgical history Allergies: See below Medications: See below Family History: - No history of malignancies Social History: - Denies the use of alcohol or illicit drugs; patient reports that she is a smoker of 5 years - Denies recent travel or sick contacts - Lives with family Review of Systems: 10 point review of systems complete, all negative otherwise stated in HPI Physical exam: - Vitals: BP [116/88], HR [89], RR [16], Sat [100%RA], Temp [98.7F] - General: Lying in bed, No acute distress, AAOx3 - HEENT: NC, AT, PERRLA, EOMI - CVS: RRR, +S1S2, - Murmurs / rubs / gallops - Lungs: Fair air entry bilaterally, No appreciable wheezing / rales / rhonchi - Abdomen: Soft, Non-distended, Non-tender - Extremities: No lower extremity edema, No calf tenderness - Neuro: No focal motor or sensory deficit - Skin: No visible rashes Assessment and Plan: Psychosis - Pressured / incoherent speech - Patient has been admitted to the inpatient mental health unit under the care of psychiatry - Currently being managed by psychiatry No significant past medical history DVT prophylaxis - Will continue with early ambulation Male director cpg was present at the duration of this history and physical examination Thank you for this consultation; hospital service will now sign off, please re- consult as needed Vital Signs Vital Signs Date Time Temp Pulse Resp B/P (MAP) Pulse Ox O2 Delivery O2 Flow Rate FiO2 07/05/20 06:42 97.9 72 16 99/59 (72) 98 07/04/20 14:06 Room Air Home Medications Scheduled Acyclovir (Acyclovir) 200 Mg Capsule, 400 MG PO TID for Herpes Infection Nicotine (Nicotine Patch) 21 Mg Patch.td24, 1 PATCH TD DAILY for Nicotine Withdrawal Paliperidone (Paliperidone ER) 3 Mg Tab.er.24, 3 MG PO BID for antipsychotic Paliperidone Palmitate (Invega Sustenna) 234 Mg/1.5 Ml Syringe, 234 MG IM QMONTH for antipsychotic Intramuscular Injection due on 08/06/20 Scheduled PRN Benztropine Mesylate (Benztropine Mesylate) 0.5 Mg Tablet, 0.5 MG PO BID PRN for EPS Allergies Coded Allergies: Gluten Flour (Verified Allergy, Unknown, 08/11/18) A-FIB/CHADSVASC A-FIB History Current/History of A-Fib/PAF?: No BOBO MENDOZA MD Jul 05, 2020 16:10
[2020-07-05 18:00] VITALS: BP 147/73
[2020-07-05] MEDS: OLANZapine ORAL DISINTEGRATING TAB 5MG PO PRN (18:40)
[2020-07-06 06:23] VITALS: BP 133/72
[2020-07-06] MEDS: PALIPERIDONE 3 MG ER TAB (INVEGA) PO SCH ×2 (09:51→21:51)
[2020-07-06] MEDS: ACETAMINOPHEN TAB 650MG DOSE (2X325MG) PO PRN ×2 (09:51→18:46)
--- NOTE | 2020-07-06 13:26 | MHIPNPDOC ---
[facility] Progress Note Progress Note DATE OF SERVICE: 07/06/20 HISTORY: Patient is a 30 year old Single, Unemployed, Domiciled Female who was brought to [facility] due to her bizarre and delusional thought process. It was reported to police that pt was arguing with Mic[place]ordona about being friends with Sue Singh. Pt has a history of non-compliance. Pt reports that she was a pt at [facility] will not disclose to why she was originally seen at [place]. Pt states "I feel fine; it's illegal for me to be here at [facility] and in [place]". Pt was asked what drugs she used last night, pt states "I don't use any drugs; you don't know what you're talking about". Pt reports that she has never been inpatient for Mental Health ever in her life time. Pt has had multiple inpatient visits to [facility] with her last admission in July of 2019. VITAL SIGNS: See below. NEW TEST RESULTS: CURRENT MEDICATIONS: See below. MENTAL STATUS EXAMINATION: Patient is a 30-year old female, who is delusional and bizarre in the interview. She is minimally cooperative in the interview. Appears her stated age. Wearing hospital scrubs, her hygiene and grooming in poor. She is not observed with psychomotor retardation or agitation. Speech: Is non-sensical, stating that she is not suppose to be admitted to [facility], because her family does not want her admitted to a hospital. Language skills are fair Thought processes including: disorganized and scattered at times Thought content: perseveration that she is not suppose to be hospitalized and needs a screen stretcher. Abstract reasoning, and computation: poor . Description of associations: denies psychosis but presents as paranoid, mildly grandiose and delusional Description of abnormal or psychotic thoughts: paranoid, mildly grandiose and delusional - states that she needs a screen stretcher Judgment: poor. Insight: poor Orientation: alert and oriented to person, place not to time or situation Recent and remote memory: poor Attention span and concentration: poor Language: language skills adequate Fund of knowledge: average Mood: minimally irritable Affect: constricted DIAGNOSES: 1. Unspecified Schizophrenia and Other Psychotic Disorders 2. Methamphetamine use disorder per history 3. Cocaine use disorder per history 4. Cannabis use disorder per history 5. Tobacco use disorder per history ASSESSMENT: Pt is very guarded and seems to be minimizing. She reports that she is not suppose to be in the hospital and that she is needing to be discharged. Patient appears to have severely poor insight and judgment. MANAGEMENT PLAN: Continue medications, we will order Invega Sustenna 234 mg IM later in the week when she has taken oral Paliperidone for a consecutive number of days. We will discharge her when she is stable. TIME SPENT: 20 minutes. Vital Signs Vital Signs Date Time Temp Pulse Resp B/P (MAP) Pulse Ox O2 Delivery O2 Flow Rate FiO2 07/06/20 06:23 98.7 109 20 133/72 (92) 99 Room Air Current Medications Current Medications Medications (Trade) Dose Ordered Sig/Awlt Route PRN Reason Start Time Stop Time Status Last Admin Dose Admin Acetaminophen (Tylenol Tab) 650 mg Q6HP PRN PO HEADACHE or DISCOMFORT 07/04/20 10:30 07/06/20 09:51 Al Hydrox/Mg Hydrox/Simethicone (Mylanta) 30 ml Q4HP PRN PO HEARTBURN/INDIGESTION 07/04/20 10:30 Home Med (Med Rec Complete!) ASDIRECTED XX 07/04/20 06:30 07/04/20 06:21 DC Magnesium Hydroxide (Milk Of Magnesia) 30 ml DAILYPRN PRN PO CONSTIPATION 07/04/20 10:30 Olanzapine (ZyPREXA ZYDIS) 5 mg Q6HP PRN PO ANXIETY/AGITATION 07/04/20 10:30 07/05/20 18:40 Paliperidone (Invega) 3 mg BID PO 07/05/20 13:00 07/06/20 09:51 Trazodone HCl (Desyrel) 50 mg QHSP PRN PO INSOMNIA 07/04/20 10:30 Allergies Coded Allergies: Gluten Flour (Verified Allergy, Unknown, 08/11/18) JONA WILLIS NP Jul 06, 2020 13:26
[2020-07-06 16:48] VITALS: BP 115/62
[2020-07-07 06:36] VITALS: BP 97/55
[2020-07-07] MEDS: PALIPERIDONE 3 MG ER TAB (INVEGA) PO SCH ×2 (09:02→22:02)
[2020-07-07] MEDS: ACETAMINOPHEN TAB 650MG DOSE (2X325MG) PO PRN (09:04)
[2020-07-07] MEDS: IBUPROFEN 600MG TAB PO SCH ×2 (14:52→18:00)
--- NOTE | 2020-07-07 14:55 | MHIPNPDOC ---
[facility] Progress Note Progress Note DATE OF SERVICE: 07/07/20 HISTORY: Today is Day 4 of patient's admission. To Review: Patient is a 30 year old Single, Unemployed, Domiciled Female who was brought to [facility] due to her bizarre and delusional thought process. It was reported to police that pt was arguing with Micahlord about being friends with Sue Singh. Pt has a history of non-compliance. Pt reports that she was a pt at [facility] will not disclose to why she was originally seen at [place]. Pt states "I feel fine; it's illegal for me to be here at [facility] and in [place]". Pt was asked what drugs she used last night, pt states "I don't use any drugs; you don't know what you're talking about". Pt reports that she has never been inpatient for Mental Health ever in her life time. Pt has had multiple inpatient visits to [facility] with her last admission in July of 2019. VITAL SIGNS: See below. NEW TEST RESULTS: CURRENT MEDICATIONS: See below. MENTAL STATUS EXAMINATION: Patient is a 30-year old female, who was brought in to [facility] due delusional and bizarre behaviors in the community. She is cooperative in the interview. Appears her stated age. Wearing hospital scrubs, her hygiene and grooming in poor. She is not observed with psychomotor retardation or agitation. Speech: spontaneous, fluid, normal tone, volume, and ashok. Language skills are fair Thought processes including: linear and goal oriented Thought content: denies depression, anxiety, suicidal/homicidal ideation. Abstract reasoning, and computation: fair Description of associations: denies psychosis but presents guarded, minimizing Description of abnormal or psychotic thoughts: none noted/patient denies Judgment: fair. Insight: fair. Orientation: alert and oriented x 3 Recent and remote memory: good Attention span and concentration: good Language: language skills adequate Fund of knowledge: average Mood: minimally guarded, mildly evasive Affect: constricted DIAGNOSES: 1. Unspecified Schizophrenia and Other Psychotic Disorders 2. Methamphetamine use disorder per history 3. Cocaine use disorder per history 4. Cannabis use disorder per history 5. Tobacco use disorder per history ASSESSMENT: Pt is mildly evasive and guarded and appears to have some med- seeking behaviors. What else can I ask for, I need a muscle relaxer. Patient is prescribed Ibuprofen 800 mg for moderate back pain. She has improved cognition and is calm and cooperative in the interview. She is agrees to medications. She denies depression, anxiety, suicidal/homicidal ideation. She is not observed with any auditory or visual hallucinations, paranoia, percy or delusions. MANAGEMENT PLAN: Continue medications, we will order Invega Sustenna 234 mg IM on the and booster injection on Monday. Possible discharge on Monday or Monday. TIME SPENT: 20 minutes. Vital Signs Vital Signs Date Time Temp Pulse Resp B/P (MAP) Pulse Ox O2 Delivery O2 Flow Rate FiO2 07/07/20 06:36 98.2 61 18 97/55 (69) 07/06/20 06:23 99 Room Air Current Medications Current Medications Medications (Trade) Dose Ordered Sig/Walt Route PRN Reason Start Time Stop Time Status Last Admin Dose Admin Acetaminophen (Tylenol Tab) 650 mg Q6HP PRN PO HEADACHE or DISCOMFORT 07/04/20 10:30 07/07/20 09:04 Al Hydrox/Mg Hydrox/Simethicone (Mylanta) 30 ml Q4HP PRN PO HEARTBURN/INDIGESTION 07/04/20 10:30 Home Med (Med Rec Complete!) ASDIRECTED XX 07/04/20 06:30 07/04/20 06:21 DC Ibuprofen (Advil) 600 mg Q6H PO 07/07/20 14:45 UNV Magnesium Hydroxide (Milk Of Magnesia) 30 ml DAILYPRN PRN PO CONSTIPATION 07/04/20 10:30 Olanzapine (ZyPREXA ZYDIS) 5 mg Q6HP PRN PO ANXIETY/AGITATION 07/04/20 10:30 07/05/20 18:40 Paliperidone (Invega) 3 mg BID PO 07/05/20 13:00 07/07/20 09:02 Trazodone HCl (Desyrel) 50 mg QHSP PRN PO INSOMNIA 07/04/20 10:30 Allergies Coded Allergies: Gluten Flour (Verified Allergy, Unknown, 08/11/18) JONA WILLIS NP Jul 07, 2020 14:55
[2020-07-07 16:25] VITALS: BP 111/61
[2020-07-07] MEDS ORDERED: NICOTINE 21MG/24HR 1 EA TRANSDERMAL TD ONE (17:00)
[2020-07-08] MEDS: IBUPROFEN 600MG TAB PO SCH ×5 (05:39→17:27)
[2020-07-08 06:19] VITALS: BP 98/58
[2020-07-08] MEDS: PALIPERIDONE 3 MG ER TAB (INVEGA) PO SCH ×2 (09:01→20:30)
[2020-07-08] MEDS: NICOTINE 21MG/24HR 1 EA TRANSDERMAL TD SCH (09:01)
[2020-07-08] MEDS ORDERED: BENZTROPINE 0.5 MG TAB PO PRN (11:00)
--- NOTE | 2020-07-08 11:11 | MHIPNPDOC ---
[facility] Progress Note Progress Note DATE OF SERVICE: 07/08/20 HISTORY: Today is Day 5 of patient's admission. To Review: Patient is a 30 year old Single, Unemployed, Domiciled Female who was brought to [facility] due to her bizarre and delusional thought process. It was reported to police that pt was arguing with Micahlordona about being friends with Sue Singh. Pt has a history of non-compliance. Pt reports that she was a pt at [facility] will not disclose to why she was originally seen at [place]. Pt states "I feel fine; it's illegal for me to be here at [facility] and in [place]". Pt was asked what drugs she used last night, pt states "I don't use any drugs; you don't know what you're talking about". Pt reports that she has never been inpatient for Mental Health ever in her life time. Pt has had multiple inpatient visits to [facility] with her last admission in July of 2019. [patient has been trialed on Paliperidone, Invega Sustenna, Zyprexa, Haldol, Depakote ER, Abilify, and Risperidone, on her most recent admission she was discharged on Invega Sustenna in 07/2019] VITAL SIGNS: See below. NEW TEST RESULTS: CURRENT MEDICATIONS: See below. MENTAL STATUS EXAMINATION: Patient is a 30-year old female, who was brought in to [facility] due delusional and bizarre behaviors in the community. She is cooperative in the interview. Appears her stated age. Wearing hospital scrubs, her hygiene and grooming is poor. Her hair is unkempt and knotted. She is not observed with psychomotor retardation or agitation. Speech: spontaneous, fluid, normal tone, volume, and ashok. Language skills are fair Thought processes including: linear and goal oriented Thought content: denies depression, anxiety, suicidal/homicidal ideation. Abstract reasoning, and computation: fair Description of associations: denies psychosis but states she has desires to go to college today, this appears to be mildly delusional as patient is homeless, not employed and has poor finances. Description of abnormal or psychotic thoughts: none noted/patient denies. Not observed with psychosis, paranoia, percy, delusions or auditory/visual/tactile hallucinations Judgment: fair. Insight: fair. Orientation: alert and oriented x 3 to self, place and date. She is not oriented to situation. She states that she was not fighting with a landlord, she does not have a landlord, she was fighting with her boyfriend. Recent and remote memory: good Attention span and concentration: good Language: language skills adequate Fund of knowledge: average Mood: minimally guarded, mildly evasive Affect: constricted DIAGNOSES: 1. Unspecified Schizophrenia and Other Psychotic Disorders 2. Methamphetamine use disorder per history 3. Cocaine use disorder per history 4. Cannabis use disorder per history, urine drug screen was positive for this 5. Tobacco use disorder per history ASSESSMENT: Patient states that she wants information about [facility] [place]. 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 She has improved cognition and is calm and cooperative in the interview. She has been compliant with medications. She denies depression, anxiety, suicidal/homicidal ideation. She is not observed with any auditory or visual hallucinations, paranoia, percy or delusions. Patient MANAGEMENT PLAN: Continue medications, patient will have Invega Sustenna 234 mg IM on the and booster injection on Monday, she is agreeable to the long acting injectable. Possible discharge on Monday or Monday. TIME SPENT: 20 minutes. Vital Signs Vital Signs Date Time Temp Pulse Resp B/P (MAP) Pulse Ox O2 Delivery O2 Flow Rate FiO2 07/08/20 06:19 98.6 62 18 98/58 (71) 07/06/20 06:23 99 Room Air Current Medications Current Medications Medications (Trade) Dose Ordered Sig/Walt Route PRN Reason Start Time Stop Time Status Last Admin Dose Admin Acetaminophen (Tylenol Tab) 650 mg Q6HP PRN PO HEADACHE or DISCOMFORT 07/04/20 10:30 07/07/20 09:04 Al Hydrox/Mg Hydrox/Simethicone (Mylanta) 30 ml Q4HP PRN PO HEARTBURN/INDIGESTION 07/04/20 10:30 Home Med (Med Rec Complete!) ASDIRECTED XX 07/04/20 06:30 07/04/20 06:21 DC Ibuprofen (Advil) 600 mg Q6H PO 07/07/20 12:00 07/08/20 07:47 Magnesium Hydroxide (Milk Of Magnesia) 30 ml DAILYPRN PRN PO CONSTIPATION 07/04/20 10:30 Nicotine (Nicoderm Cq 21mg) 1 patch DAILY TD 07/08/20 09:00 07/08/20 09:01 Olanzapine (ZyPREXA ZYDIS) 5 mg Q6HP PRN PO ANXIETY/AGITATION 07/04/20 10:30 07/05/20 18:40 Paliperidone (Invega) 3 mg BID PO 07/05/20 13:00 07/08/20 09:01 Trazodone HCl (Desyrel) 50 mg QHSP PRN PO INSOMNIA 07/04/20 10:30 Allergies Coded Allergies: Gluten Flour (Verified Allergy, Unknown, 08/11/18) JONA WILLIS NP Jul 08, 2020 11:11
[2020-07-08 16:04] VITALS: BP 108/67
[2020-07-08] MEDS: traZODone 50 MG TAB PO PRN (21:41)
[2020-07-09 06:15] VITALS: BP 125/66
[2020-07-09] MEDS: IBUPROFEN 600MG TAB PO SCH ×4 (06:29→18:00)
[2020-07-09] MEDS: NICOTINE 21MG/24HR 1 EA TRANSDERMAL TD SCH (08:42)
[2020-07-09] MEDS: PALIPERIDONE 3 MG ER TAB (INVEGA) PO SCH ×2 (08:42→19:40)
[2020-07-09] MEDS: ACYCLOVIR 200 MG CAPSULE PO SCH ×3 (09:00→19:41)
[2020-07-09] MEDS ORDERED: PALIPERIDONE PALMITATE 234MG/1.5ML INJ (INVEGA)(FREE PSY INPT ONLY) IM ONE (09:00)
--- NOTE | 2020-07-09 10:23 | MHIPNPDOC ---
[facility] Progress Note Progress Note DATE OF SERVICE: 07/09/20 HISTORY: Today is Day 6 of patient's admission. To Review: Patient is a 30 year old Single, Unemployed, Domiciled, Female who was brought to [facility] due to her bizarre and delusional thought process. It was reported to police that pt was arguing with Landlord about being friends with Sue Singh. Pt has a history of non-compliance. Patient was on Invega Sustenna in July of 2019. Pt reports that she was a pt at [facility] will not disclose to why she was originally seen at [place]. Pt states "I feel fine; it's illegal for me to be here at [facility] and in [place]". Pt was asked what drugs she used last night, pt states "I don't use any drugs; you don't know what you're talking about". Pt reports that she has never been inpatient for Mental Health ever in her life time. Pt has had multiple inpatient visits to [facility] with her last admission in July of 2019. VITAL SIGNS: See below. NEW TEST RESULTS: CURRENT MEDICATIONS: See below. MENTAL STATUS EXAMINATION: Patient is a 30-year old female, who was brought in to [facility] due delusional and bizarre behaviors in the community. She is cooperative in the interview. Appears her stated age. Wearing hospital scrubs, her hygiene and grooming is poor. Her hair is unkempt and knotted. Has her hair in dreads, states that she wants her hair this way. She is not observed with psychomotor retardation or agitation. Speech: spontaneous, fluid, normal tone, low volume, and slow ashok. Language skills are fair Thought processes including: linear and goal oriented, mildly grandiose Thought content: denies depression, anxiety, suicidal/homicidal ideation. Abstract reasoning, and computation: fair Description of associations: denies psychosis but states she has desires to go to college today Description of abnormal or psychotic thoughts: none noted/patient denies. Not observed with psychosis, paranoia, percy, delusions or auditory/visual/tactile hallucinations Judgment: fair. Insight: fair. Orientation: alert and oriented x 3 to self, place and date. She is not truthful about the situation that brought her to [facility]. Recent and remote memory: good Attention span and concentration: good Language: language skills adequate Fund of knowledge: average Mood: guarded Affect: flat DIAGNOSES: 1. Unspecified Schizophrenia and Other Psychotic Disorders 2. Methamphetamine use disorder per history 3. Cocaine use disorder per history 4. Cannabis use disorder per history, urine drug screen was positive for this 5. Tobacco use disorder per history ASSESSMENT: Patient continues to talk about going to school at [employer]. 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 She has improved cognition and is calm and cooperative in the interview. She has been compliant with medications. She denies depression, anxiety, suicidal/homicidal ideation. She is not observed with any auditory or visual hallucinations, paranoia, percy or delusions. Reports that she doesnt talk to her family. When reviewing the situation that brought her to [facility] she states that she was living in [place] with Diego her boyfriend. I was very sick, I needed a health check up and went to [facility]. She reports not wanting to return to boyfriend - on discharge she wants to go to [facility] for emergency housing. Reports good sleep, no depression, mildly anxious due to coffee. She appeared mildly drowsy in the interview. Calm and cooperative. MANAGEMENT PLAN: Continue medications, patient will have Invega Sustenna 234 mg IM today and booster injection on Monday, she is agreeable to the long acting injectable. Possible discharge on Monday or Monday. Vital Signs Vital Signs Date Time Temp Pulse Resp B/P (MAP) Pulse Ox O2 Delivery O2 Flow Rate FiO2 07/09/20 06:15 98.1 73 16 125/66 (85) 99 Room Air Current Medications Current Medications Medications (Trade) Dose Ordered Sig/Walt Route PRN Reason Start Time Stop Time Status Last Admin Dose Admin Acetaminophen (Tylenol Tab) 650 mg Q6HP PRN PO HEADACHE or DISCOMFORT 07/04/20 10:30 07/07/20 09:04 Al Hydrox/Mg Hydrox/Simethicone (Mylanta) 30 ml Q4HP PRN PO HEARTBURN/INDIGESTION 07/04/20 10:30 Benztropine Mesylate (Cogentin) 0.5 mg BID PRN PO EPS 07/08/20 11:00 07/08/20 12:00 Home Med (Med Rec Complete!) ASDIRECTED XX 07/04/20 06:30 07/04/20 06:21 DC Ibuprofen (Advil) 600 mg Q6H PO 07/07/20 12:00 07/09/20 06:29 Magnesium Hydroxide (Milk Of Magnesia) 30 ml DAILYPRN PRN PO CONSTIPATION 07/04/20 10:30 Nicotine (Nicoderm Cq 21mg) 1 patch DAILY TD 07/08/20 09:00 07/09/20 08:42 Olanzapine (ZyPREXA ZYDIS) 5 mg Q6HP PRN PO ANXIETY/AGITATION 07/04/20 10:30 07/05/20 18:40 Paliperidone (Invega) 3 mg BID PO 07/05/20 13:00 07/09/20 08:42 Trazodone HCl (Desyrel) 50 mg QHSP PRN PO INSOMNIA 07/04/20 10:30 07/08/20 21:41 Allergies Coded Allergies: Gluten Flour (Verified Allergy, Unknown, 08/11/18) JONA WILLIS NP Jul 09, 2020 10:23
[2020-07-09 18:41] VITALS: BP 129/89
[2020-07-09] MEDS: OLANZapine ORAL DISINTEGRATING TAB 5MG PO PRN (19:41)
[2020-07-09] MEDS ORDERED: LORazepam 1 MG TAB PO ONE (21:15)
[2020-07-10 06:15] VITALS: BP 111/77
[2020-07-10] MEDS: IBUPROFEN 600MG TAB PO SCH ×4 (06:33→17:31)
[2020-07-10] MEDS: PALIPERIDONE 3 MG ER TAB (INVEGA) PO SCH ×2 (09:56→21:00)
[2020-07-10] MEDS: NICOTINE 21MG/24HR 1 EA TRANSDERMAL TD SCH (09:56)
[2020-07-10] MEDS: ACYCLOVIR 200 MG CAPSULE PO SCH ×3 (09:56→21:00)
--- NOTE | 2020-07-10 10:39 | MHIPNPDOC ---
[facility] Progress Note Progress Note DATE OF SERVICE: 07/10/20 HISTORY: HISTORY: Patient is a 30 year old Single, Unemployed, Domiciled, Female who was brought to [facility] due to her bizarre and delusional thought process. Made delusional statements about [place] about being friends with Sue Singh. Pt has had multiple inpatient visits to [facility] with her last admission in July of 2019. Was on Invega Sustenna in July of 2019 and has a history of non-compliance. VITAL SIGNS: See below. NEW TEST RESULTS: CURRENT MEDICATIONS: See below. MENTAL STATUS EXAMINATION: Patient is a 30-year old female, who was brought in to [facility] due delusional and bizarre behaviors in the community. She is cooperative in the interview. Appears her stated age. Wearing hospital scrubs, her hygiene and grooming is poor. Her hair is unkempt and knotted. She is not observed with psychomotor retardation or agitation. She is drowsy in the interview. Speech: spontaneous, fluid, normal tone, low volume, and slow ashok. Language skills are fair Thought processes including: linear and goal oriented Thought content: denies depression, anxiety, suicidal/homicidal ideation. Abstract reasoning, and computation: fair Description of associations: denies psychosis and is not observed with psychotic symptoms Description of abnormal or psychotic thoughts: none noted/patient denies. Not observed with psychosis, paranoia, percy, delusions or auditory/visual/tactile hallucinations Judgment: fair. Insight: fair. Orientation: alert and oriented x 3 to self, place and date. Recent and remote memory: good Attention span and concentration: good Language: language skills adequate Fund of knowledge: average Mood: reports that she is euthymic Affect: flat DIAGNOSES: 1. Unspecified Schizophrenia and Other Psychotic Disorders 2. Methamphetamine use disorder per history 3. Cocaine use disorder per history 4. Cannabis use disorder per history, urine drug screen was positive for this 5. Tobacco use disorder per history ASSESSMENT: Patient was found sleeping in her room, agreeable to interview. She has improved thought process. Asks several questions about process when she is discharged, asked about Reports good sleep, no depression, mildly anxious due to coffee. She appeared mildly drowsy in the interview. Calm and cooperative. She is agreeable to treatment plan and states that she is feeling better. MANAGEMENT PLAN: Continue medications, patient will have Invega Sustenna 156 mg IM ijection on Monday, no reports of side effects from yesterdays injection. Possible discharge on Monday. TIME SPENT: 20 minutes. Vital Signs Vital Signs Date Time Temp Pulse Resp B/P (MAP) Pulse Ox O2 Delivery O2 Flow Rate FiO2 07/10/20 06:15 97.5 94 14 111/77 (88) Room Air 07/09/20 06:15 99 Laboratory Data 24H Labs Laboratory Tests 2 07/09/20 13:24: Current Medications Current Medications Medications (Trade) Dose Ordered Sig/Walt Route PRN Reason Start Time Stop Time Status Last Admin Dose Admin Acetaminophen (Tylenol Tab) 650 mg Q6HP PRN PO HEADACHE or DISCOMFORT 07/04/20 10:30 07/07/20 09:04 Acyclovir (Zovirax) 400 mg TID PO 07/09/20 09:00 07/18/20 21:01 07/10/20 09:56 Al Hydrox/Mg Hydrox/Simethicone (Mylanta) 30 ml Q4HP PRN PO HEARTBURN/INDIGESTION 07/04/20 10:30 Benztropine Mesylate (Cogentin) 0.5 mg BID PRN PO EPS 07/08/20 11:00 07/08/20 12:00 Home Med (Med Rec Complete!) ASDIRECTED XX 07/04/20 06:30 07/04/20 06:21 DC Ibuprofen (Advil) 600 mg Q6H PO 07/07/20 12:00 07/10/20 06:33 Magnesium Hydroxide (Milk Of Magnesia) 30 ml DAILYPRN PRN PO CONSTIPATION 07/04/20 10:30 Nicotine (Nicoderm Cq 21mg) 1 patch DAILY TD 07/08/20 09:00 07/10/20 09:56 Olanzapine (ZyPREXA ZYDIS) 5 mg Q6HP PRN PO ANXIETY/AGITATION 07/04/20 10:30 07/09/20 19:41 Paliperidone (Invega) 3 mg BID PO 07/05/20 13:00 07/10/20 09:56 Trazodone HCl (Desyrel) 50 mg QHSP PRN PO INSOMNIA 07/04/20 10:30 07/08/20 21:41 Allergies Coded Allergies: Gluten Flour (Verified Allergy, Unknown, 08/11/18) JONA WILLIS NP Jul 10, 2020 10:39
[2020-07-10] MEDS: ACETAMINOPHEN TAB 650MG DOSE (2X325MG) PO PRN (15:29)
[2020-07-10 16:33] VITALS: BP 98/54
[2020-07-11] MEDS: IBUPROFEN 600MG TAB PO SCH ×5 (06:00→17:17)
[2020-07-11 06:34] VITALS: BP 100/56
[2020-07-11] MEDS: PALIPERIDONE 3 MG ER TAB (INVEGA) PO SCH ×3 (07:21→20:38)
[2020-07-11] MEDS: NICOTINE 21MG/24HR 1 EA TRANSDERMAL TD SCH (09:25)
[2020-07-11] MEDS: ACYCLOVIR 200 MG CAPSULE PO SCH ×3 (09:25→20:38)
[2020-07-11] MEDS: ACETAMINOPHEN TAB 650MG DOSE (2X325MG) PO PRN (11:45)
[2020-07-11 16:17] VITALS: BP 115/77
[2020-07-11] MEDS: OLANZapine ORAL DISINTEGRATING TAB 5MG PO PRN (18:57)
[2020-07-11] MEDS: traZODone 50 MG TAB PO PRN (20:38)
[2020-07-12] MEDS: IBUPROFEN 600MG TAB PO SCH ×3 (06:00→11:59)
[2020-07-12 06:26] VITALS: BP 130/70
[2020-07-12] MEDS ORDERED: PALIPERIDONE PALMITATE 156MG/1ML INJ(INVEGA)(FREE PSY INPT ONLY) IM ONE (09:00)
[2020-07-12] MEDS: NICOTINE 21MG/24HR 1 EA TRANSDERMAL TD SCH (09:29)
[2020-07-12] MEDS: PALIPERIDONE 3 MG ER TAB (INVEGA) PO SCH ×2 (09:29→20:36)
[2020-07-12] MEDS: ACYCLOVIR 200 MG CAPSULE PO SCH ×3 (09:29→20:36)
[2020-07-12 16:23] VITALS: BP 115/67
[2020-07-12] MEDS: traZODone 50 MG TAB PO PRN (20:36)
[2020-07-13 06:20] VITALS: BP 106/53
[2020-07-13] MEDS: ACYCLOVIR 200 MG CAPSULE PO SCH ×3 (09:16→21:43)
[2020-07-13] MEDS: PALIPERIDONE 3 MG ER TAB (INVEGA) PO SCH ×2 (09:16→21:43)
[2020-07-13] MEDS: NICOTINE 21MG/24HR 1 EA TRANSDERMAL TD SCH (09:18)
--- NOTE | 2020-07-13 09:20 | MHIPNPDOC ---
[facility] Progress Note Progress Note DATE OF SERVICE: 07/13/20 HISTORY: HISTORY: Patient is a 30 year old Single, Unemployed, Domiciled, Female who was brought to [facility] due to her bizarre and delusional thought process. Made delusional statements about Landlord about being friends with Sue Singh. Pt has had multiple inpatient visits to [facility] with her last admission in July of 2019. Was on Invega Sustenna in July of 2019 and has a history of non-compliance and polysubstance use history VITAL SIGNS: See below. NEW TEST RESULTS: CURRENT MEDICATIONS: See below. MENTAL STATUS EXAMINATION: Patient is a 30-year old female, who was brought in to [facility] due delusional and bizarre behaviors in the community. She is cooperative in the interview. Appears her stated age. Wearing hospital scrubs, her hygiene and grooming is fair. Her hair is improved. She is not observed with psychomotor retardation or agitation. She is alert and oriented in the interview. Speech: spontaneous, fluid, normal tone, low volume, and slow ashok. Language skills are fair Thought processes including: linear and goal oriented Thought content: denies depression, anxiety, suicidal/homicidal ideation. Abstract reasoning, and computation: fair Description of associations: denies psychosis and is not observed with psychotic symptoms Description of abnormal or psychotic thoughts: none noted/patient denies. Not observed with psychosis, paranoia, percy, delusions or auditory/visual/tactile hallucinations Judgment: fair. Insight: fair. Orientation: alert and oriented x 3 to self, place and date. Recent and remote memory: good Attention span and concentration: good Language: language skills adequate Fund of knowledge: average Mood: reports that she is euthymic Affect: flat DIAGNOSES: 1. Unspecified Schizophrenia and Other Psychotic Disorders 2. Methamphetamine use disorder per history 3. Cocaine use disorder per history 4. Cannabis use disorder per history, urine drug screen was positive for this 5. Tobacco use disorder per history ASSESSMENT: Patient was found in her room, agreeable to interview. She has improved thought process. And she is Calm and cooperative. She is agreeable t o treatment plan to go to [facility] for emergency housing and states that she is feeling better. Prefers to leave today but is agreeable to discharge. Per weekend report by RN, patient was observed to be responding to internal stimuli, but during interview she denies auditory hallucinations, denies delusions, psychotic symptoms, obsessions, paranoia or racing thoughts. Patient denies having thoughts of self-harm of self or others. MANAGEMENT PLAN: Continue medications, no reports of side effects from yeste rdays injection. Discharge tomorrow. TIME SPENT: 10 minutes. Vital Signs Vital Signs Date Time Temp Pulse Resp B/P (MAP) Pulse Ox O2 Delivery O2 Flow Rate FiO2 07/13/20 06:20 97.9 76 16 106/53 (70) 99 Room Air Current Medications Current Medications Medications (Trade) Dose Ordered Sig/Walt Route PRN Reason Start Time Stop Time Status Last Admin Dose Admin Acetaminophen (Tylenol Tab) 650 mg Q6HP PRN PO HEADACHE or DISCOMFORT 07/04/20 10:30 07/11/20 11:45 Acyclovir (Zovirax) 400 mg TID PO 07/09/20 09:00 07/18/20 21:01 07/12/20 20:36 Al Hydrox/Mg Hydrox/Simethicone (Mylanta) 30 ml Q4HP PRN PO HEARTBURN/INDIGESTION 07/04/20 10:30 Benztropine Mesylate (Cogentin) 0.5 mg BID PRN PO EPS 07/08/20 11:00 07/08/20 12:00 Home Med (Med Rec Complete!) ASDIRECTED XX 07/04/20 06:30 07/04/20 06:21 DC Ibuprofen (Advil) 600 mg Q6H PO 07/07/20 12:00 07/12/20 13:25 DC 07/12/20 11:59 Ibuprofen (Advil) 600 mg Q6HP PRN PO PAIN OR DISCOMFORT 07/12/20 18:00 Magnesium Hydroxide (Milk Of Magnesia) 30 ml DAILYPRN PRN PO CONSTIPATION 07/04/20 10:30 Nicotine (Nicoderm Cq 21mg) 1 patch DAILY TD 07/08/20 09:00 07/12/20 09:29 Olanzapine (ZyPREXA ZYDIS) 5 mg Q6HP PRN PO ANXIETY/AGITATION 07/04/20 10:30 07/11/20 18:57 Paliperidone (Invega) 3 mg BID PO 07/05/20 13:00 07/12/20 20:36 Trazodone HCl (Desyrel) 50 mg QHSP PRN PO INSOMNIA 07/04/20 10:30 07/12/20 20:36 Allergies Coded Allergies: Gluten Flour (Verified Allergy, Unknown, 08/11/18) JONA WILLIS NP Jul 13, 2020 09:20
[2020-07-13] MEDS: IBUPROFEN 600MG TAB PO PRN (16:47)
[2020-07-13 17:59] VITALS: BP 109/65
[2020-07-13] MEDS: OLANZapine ORAL DISINTEGRATING TAB 5MG PO PRN (21:46)
[2020-07-13] MEDS: traZODone 50 MG TAB PO PRN (23:22)
[2020-07-14 06:46] VITALS: BP 133/57
[2020-07-14] MEDS: ACYCLOVIR 200 MG CAPSULE PO SCH (09:13)
[2020-07-14] MEDS: PALIPERIDONE 3 MG ER TAB (INVEGA) PO SCH (09:14)
[2020-07-14] MEDS: NICOTINE 21MG/24HR 1 EA TRANSDERMAL TD SCH (09:14)
[2020-07-14] MEDS: IBUPROFEN 600MG TAB PO PRN (09:14)
[2020-07-14] MEDS ORDERED: NICO21PAT TD (11:49)
[2020-07-14] MEDS ORDERED: INVE234I IM (11:49)
[2020-07-14] MEDS ORDERED: BENZ0.5T23 PO (11:49)
[2020-07-14] MEDS ORDERED: ACYC200C8 PO (11:49)
[2020-07-14] MEDS ORDERED: PALI1TAB2 PO (11:49)
[2020-07-14 15:07] LABS: HSV TYPE I IgM AB <1:10 titer (<1:10); HSV TYPE II IgG SPECIFIC 3.88 index (0.00-0.90); HSV TYPE II IgM ABY <1:10 titer (<1:10)
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
--- NOTE | 2020-07-30 04:05 | ED PDOC ---
Post-Departure Follow-Up The original ED T-Sheet, which is the legal medical record for this patient, was completed by this provider on the date of service. It has been lost by a [facility] employee in the interim and has not been able to be recovered. I have been asked to provide another account of the visit from July 03, 2020. The patient presented to the ED at 10:12 PM on July 03, 2020. I have no independent recollection of the patient and any information documented is summarized from RN notes and investigation results. The patient presented via EMS from [facility], in violation of EMTALA, as there was no transfer arranged. She had been seen at their ED for bizarre behavior, found to be intoxicated and eventually placed in an ambulance and transported to [facility]. Per RN and Social Work notes, she would not provide any history. No other history is available. Vital signs are noted to have been normal. She is described as dishevelled. No other physical exam description is available. Investigations all within normal limits except for an alcohol level of 0.078% and a toxicology screen positive for THC. [facility] was consulted and a decision to admit was reached. She was admitted on 07/04/20 with a diagnosis of Unspecified Psychotic Disorder. Navjot Velez M.D. Jul 30, 2020 04:05
== END 2020-07-14 13:10 | disposition home or self-care (01) | DRG 750 ==
LOC: M ED 22:12 → M ED INP 07-04 10:28 → M PSY 07-04 14:15
PROVIDERS: ADMIT Psychiatry & Neurology Psychiatry; ATTEND Psychiatry & Neurology Psychiatry
DX: F20.9 Schizophrenia, unspecified (principal); F12.90 Cannabis use, unspecified, uncomplicated; F17.200 Nicotine dependence, unspecified, uncomplicated; Z79.899 Other long term (current) drug therapy

== ENCOUNTER 2021-01-07 02:29 | Inpatient (IN) | payer OTHER ==
[~2021-01-07] VITALS: Ht 165.1 cm; Wt 58.7 kg
[~2021-01-07 02:29] MED LIST changes: +ACYC200C8 PO; +BENZ0.5T23 PO; +INVE234I IM; +NICO21PAT TD; +RISP-10; -RISP3TAB3
[2021-01-07] MEDS ORDERED: NS 1,000 ML IV ONE (02:40)
[2021-01-07 02:57] LABS: BASO % 0.3 % (0.0-1.0); EOS # 0.2 10^3/uL (0.0-0.5); EOS % 1.3 % (0.0-3.0); HEMATOCRIT 39.1 % (36.0-47.0); LYMPH # 2.1 10^3/uL (1.5-5.0); LYMPH % 18.5 % (24.0-44.0); MEAN CORPUSCULAR HEMOGLOBIN 30.9 pg (27.0-33.0); MEAN CORPUSCULAR HGB CONC 33.2 g/dl (32.0-36.5); MEAN CORPUSCULAR VOLUME 92.9 fl (80.0-96.0); MONO # 0.7 10^3/uL (0.0-0.8); MONO % 6.4 % (2.0-8.0); NEUTROPHILS # 8.2 10^3/uL (1.5-8.5); NEUTROPHILS % 73.2 % (36.0-66.0); PLATELET COUNT, AUTOMATED 284 10^3/uL (150-450); RED BLOOD COUNT 4.21 10^6/uL (4.00-5.40); WHITE BLOOD COUNT 11.2 10^3/uL (4.0-10.0)
[2021-01-07 03:56] LABS: ACETAMINOPHEN LEVEL < 2.0 UG/ML (10.0-30.0); ALBUMIN 3.7 GM/DL (3.2-5.2); ALT/SGPT 120 U/L (12-78); BILIRUBIN,DIRECT 0.3 MG/DL (0.0-0.2); BILIRUBIN,TOTAL 0.8 MG/DL (0.2-1.0); BLOOD UREA NITROGEN 17 MG/DL (7-18); CALCIUM LEVEL 9.3 MG/DL (8.5-10.1); CARBON DIOXIDE LEVEL 32 MEQ/L (21-32); CHLORIDE LEVEL 104 MEQ/L (98-107); CPK CREATINE PHOSPHOKINASE 193 U/L (26-192); CREATININE FOR GFR 0.73 MG/DL (0.55-1.30); ETHYL ALCOHOL (ETHANOL) < 0.003 % (0.000-0.010); GLOMERULAR FILTRATION RATE > 60.0 (>60); GLUCOSE, FASTING 90 MG/DL (70-100); POTASSIUM SERUM 3.6 MEQ/L (3.5-5.1); SALICYLATE LEVEL < 1.7 MG/DL (5.0-30.0); SODIUM LEVEL 139 MEQ/L (136-145); TOTAL PROTEIN 7.6 GM/DL (6.4-8.2)
[2021-01-07 06:31] LABS: AMPHETAMINES LEVEL URINE NEGATIVE (NEGATIVE); BARBITURATES URINE NEGATIVE (NEGATIVE); BENZODIAZEPINES URINE NEGATIVE (NEGATIVE); CANNABINOIDS URINE NEGATIVE (NEGATIVE); COCAINE METABOLITE URINE NEGATIVE (NEGATIVE); METHADONE URINE NEGATIVE (NEGATIVE); OPIATES URINE POSITIVE (NEGATIVE); PHENCYCLIDINE URINE NEGATIVE (NEGATIVE)
--- NOTE | 2021-01-07 07:12 | ECGEPIP ---
[facility] [place] - ED Test Date: 2021-01-07 Pat Name: BETH REAVES Department: Room: - Gender: Female Superintendent Track: EF : 1990 Requested By: ZHENG Crowley Order Number: [id number] Reading MD: Navjot Velez Measurements Intervals Stow Rate: 103 P: 69 KS: 152 QRS: 66 QRSD: 84 T: 38 QT: 360 QTc: 471 Interpretive Statements Sinus tachycardia POOR R WAVE PROGRESSION Nonspecific T wave abnormality SIMILAR TO 08/19/18 Electronically Signed on 01-07-2021 7:12:24 EDT by Navjot Velez
[2021-01-07 09:43] LABS: RSV AMPLIFICATION NEGATIVE (NEGATIVE)
[2021-01-07] MEDS ORDERED: MOM 30ML SUSPENSION UDC PO PRN (11:45)
[2021-01-07] MEDS ORDERED: MAALOX 30 ML SUSP *UDC PO PRN (11:45)
[2021-01-07 14:16] VITALS: BP 106/55
[2021-01-07] MEDS: ACETAMINOPHEN TAB 650MG DOSE (2X325MG) PO PRN (15:12)
[2021-01-07] MEDS ORDERED: LORazepam 2 MG TAB PO PRN (15:35)
[2021-01-07] MEDS ORDERED: diphenhydrAMINE 50MG CAP PO PRN (15:35)
[2021-01-07] MEDS: NICOTINE 21MG/24HR 1 EA TRANSDERMAL TD SCH (15:45)
[2021-01-07 18:49] VITALS: BP 129/54
[2021-01-08 06:00] VITALS: BP 101/57
[2021-01-08] MEDS: NICOTINE 21MG/24HR 1 EA TRANSDERMAL TD SCH (09:00)
--- NOTE | 2021-01-08 10:08 | HPEPDOC ---
General Date of Admission Jan 07, 2021 at 11:41 Date of Service: Jan 08, 2021 Chief Complaint The patient is a 30-year-old female admitted with a reason for visit of Atypical Psychosis. Source: Patient, RN/MD History of Present Illness 30 year old female with PMH of schizophrenia and polysubstance abuse was was brought it by police for an apparent overdose at home. She received narcan at scene. Inthe ED she was rambling, mumbling and taking nonsensical things admitted to [facility] for Psychosis. Utox positive for opiates. This am she is very somnolent did not want to talk but did allow physical exam. She was seen in her room with Nurse present. She was noted to have noisy breathing. She complained of Sore throat however could not open her mouth well for a good exam and did not want to come to the exam room. Denied any other complaints. Most of he history is taken from EMR and nurse. Home Medications No Active Prescriptions or Reported Meds Allergies Coded Allergies: Gluten Flour (Verified Allergy, Unknown, 08/11/18) Past Medical History Medical History Schizophrenia Psychotic Disorders Polysubstance use disorder, Methamphetamine, cocaine, cannabis Social History * Smoker: current smoker Alcohol: Denies Drugs: cocaine, marijuana A-FIB/CHADSVASC A-FIB History Current/History of A-Fib/PAF?: No Review of Systems Constitutional: Denies: Chills, Fever, Night Sweats Eyes: Denies: Pain, Vision change ENT: Reports: Sore Throat Skin: Denies: Rash, Lesions, Breakdown Pulmonary: Denies: Dyspnea, Cough Gastrointestinal: Denies: Nausea, Vomiting, Abdominal Pain, Diarrhea Physical Examination General Exam: Positive: Cooperative, No Acute Distress, Other (somnolent but easily arousable) Neck Exam: Positive: Supple; Negative: JVD, thyromegaly, Lymphadenopathy Chest Exam: Positive: Clear to auscultation, Normal air movement Heart Exam: Positive: Rate Normal, Regular Rhythm, Normal S1, Normal S2; Negative: Murmurs, Rubs Abdomen Exam: Positive: Normal bowel sounds, Soft; Negative: Tenderness, Hepatospenomegaly Extremity Exam: Positive: Normal pulses; Negative: Clubbing, Cyanosis, Edema Vital Signs Vital Signs Date Time Temp Pulse Resp B/P (MAP) Pulse Ox O2 Delivery O2 Flow Rate FiO2 01/08/21 06:00 97.6 72 20 101/57 (72) 99 01/07/21 14:16 Room Air Laboratory Data Labs 24H Laboratory Tests 2 01/07/21 08:48: Coronavirus (COVID-19)(PCR) NEGATIVE, Influenza Type A (RT-PCR) NEGATIVE, Influenza Type B (RT-PCR) NEGATIVE, Respiratory Syncytial Virus (PCR) NEGATIVE Assessment/Plan 30 year old female with PMH of schizophrenia and polysubstance abuse was was brought it by police for an apparent overdose at home. She received narcan at scene. In the ED she was rambling, mumbling and taking nonsensical things admitted to [facility] for Psychosis. Psychosis/ polysubstance abuse as per psychiatry Sore throat unfortunately jayleen could not cooperate with an oral exam if continues to have complaints once she is well wake will need a better exam. No lymphadenopathy or oral thrush noted. Plan / VTE VTE Prophylaxis Ordered?: No SHWETHA ZARAGOZA MD Jan 08, 2021 08:17
[2021-01-08] MEDS: PALIPERIDONE 3 MG ER TAB (INVEGA) PO SCH (10:36)
[2021-01-08] MEDS: ACETAMINOPHEN TAB 650MG DOSE (2X325MG) PO PRN (10:36)
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
[2021-01-08 16:18] VITALS: BP 98/52
[2021-01-09 06:21] VITALS: BP 118/78
[2021-01-09] MEDS: PALIPERIDONE 3 MG ER TAB (INVEGA) PO SCH (08:08)
[2021-01-09] MEDS: NICOTINE 21MG/24HR 1 EA TRANSDERMAL TD SCH ×2 (08:08→12:04)
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
[2021-01-09] MEDS: ACETAMINOPHEN TAB 650MG DOSE (2X325MG) PO PRN ×2 (11:00→18:09)
[2021-01-09 16:10] VITALS: BP 106/60
[2021-01-10 06:23] VITALS: BP 103/59
[2021-01-10] MEDS: PALIPERIDONE 6 MG ER TAB (INVEGA) PO SCH (08:51)
[2021-01-10] MEDS: NICOTINE 21MG/24HR 1 EA TRANSDERMAL TD SCH (08:51)
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
[2021-01-10 16:18] VITALS: BP 118/69
[2021-01-10] MEDS: ACETAMINOPHEN TAB 650MG DOSE (2X325MG) PO PRN (18:46)
[2021-01-10] MEDS: traZODone 50 MG TAB PO PRN (20:00)
[2021-01-11 06:32] VITALS: BP 82/47
[2021-01-11] MEDS: NICOTINE 21MG/24HR 1 EA TRANSDERMAL TD SCH (08:08)
[2021-01-11] MEDS: PALIPERIDONE 6 MG ER TAB (INVEGA) PO SCH (08:08)
[2021-01-11] MEDS: ACETAMINOPHEN TAB 650MG DOSE (2X325MG) PO PRN (08:08)
[2021-01-11] MEDS: TETRAHYDROZOLINE OPHTH 0.05% 15 ML BTL OU PRN (16:00)
--- NOTE | 2021-01-11 16:23 | MHIPNPDOC ---
[facility] Progress Note Progress Note DATE OF SERVICE: 01/11/21 HISTORY: 30-year-old female admitted in psychotic condition secondary to opiate use. Planning to go to rehabilitation. Psychosis is clearing with medication. VITAL SIGNS: See below. NEW TEST RESULTS: None. CURRENT MEDICATIONS: See below. MENTAL STATUS EXAMINATION: Patient is a 30-year old female, who is, no longer responding to internal stimuli. Speech: Is no gross disturbance. Language skills are intact. Thought processes including:. Still somewhat confused as to her discharge plan and the availability of a place for her. Thought content:. As above. Abstract reasoning, and computation:, Poor. Description of associations:, No loose associations. Description of abnormal or psychotic thoughts:. No psychotic thought. At this time noted. Judgment:. Poor. Insight: Poor. Orientation: 3. Recent and remote memory: Essentially intact. Attention span and concentration:. Poor. Language:. No gross disturbance. Fund of knowledge: Reasonable. Mood: Anxious. Affect:, Congruent. DIAGNOSES: 1. Opiate dependence. 2. None. 3.. None. ASSESSMENT: As above MANAGEMENT PLAN:. Planning to Center residential care. TIME SPENT:, 25 minutes. Vital Signs Vital Signs Date Time Temp Pulse Resp B/P (MAP) Pulse Ox O2 Delivery O2 Flow Rate FiO2 01/11/21 06:32 97.7 78 16 82/47 (59) 94 Room Air Current Medications Current Medications Medications (Trade) Dose Ordered Sig/Walt Route PRN Reason Start Time Stop Time Status Last Admin Dose Admin Acetaminophen (Tylenol Tab) 650 mg Q6HP PRN PO HEADACHE or DISCOMFORT 01/07/21 11:45 01/11/21 08:08 Al Hydrox/Mg Hydrox/Simethicone (Mylanta) 30 ml Q4HP PRN PO HEARTBURN/INDIGESTION 01/07/21 11:45 Diphenhydramine HCl (Benadryl) 50 mg Q6HP PRN PO anxiety/agitation 01/07/21 15:35 01/07/21 15:50 Haloperidol (Haldol) 10 mg Q6HP PRN PO anxiety/agitation 01/07/21 15:35 01/07/21 15:45 Home Med (Med Rec Complete!) ASDIRECTED XX 01/07/21 07:55 01/07/21 07:56 DC Lorazepam (Ativan) 2 mg Q6HP PRN PO ANXIETY/AGITATION 01/07/21 15:35 01/09/21 10:28 DC 01/07/21 15:45 Magnesium Hydroxide (Milk Of Magnesia) 30 ml DAILYPRN PRN PO CONSTIPATION 01/07/21 11:45 Nicotine (Nicoderm Cq 21mg) 1 patch DAILY TD 01/07/21 09:00 01/11/21 08:08 Paliperidone (Invega) 3 mg QAM PO 01/08/21 09:00 01/09/21 10:27 DC 01/09/21 08:08 Paliperidone (Invega) 6 mg QAM PO 01/10/21 09:00 01/11/21 08:08 Tetrahydrozoline HCl (Visine) 1 drop TIDP PRN OU REDNESS/IRRITATION 01/11/21 12:30 01/11/21 16:00 Trazodone HCl (Desyrel) 50 mg QHSP PRN PO INSOMNIA 01/07/21 11:45 01/10/21 20:00 Allergies Coded Allergies: Gluten Flour (Verified Allergy, Unknown, 08/11/18) NAMITA JULIAN MD Jan 11, 2021 16:23
[2021-01-11 18:24] VITALS: BP 117/74
[2021-01-12] MEDS: TETRAHYDROZOLINE OPHTH 0.05% 15 ML BTL OU PRN ×2 (07:42→15:36)
[2021-01-12] MEDS: ACETAMINOPHEN TAB 650MG DOSE (2X325MG) PO PRN ×2 (07:42→20:42)
[2021-01-12] MEDS: PALIPERIDONE 6 MG ER TAB (INVEGA) PO SCH (08:34)
[2021-01-12] MEDS: NICOTINE 21MG/24HR 1 EA TRANSDERMAL TD SCH (08:35)
--- NOTE | 2021-01-12 15:03 | MHIPNPDOC ---
[facility] Progress Note Progress Note DATE OF SERVICE: 01/12/21 HISTORY: 30-year-old female admitted in psychotic condition secondary to opiate use. Planning to go to rehabilitation. Psychosis is clearing with medication. Continues to clear. May go to live with [id number] prior to rehab VITAL SIGNS: See below. NEW TEST RESULTS: None. CURRENT MEDICATIONS: See below. MENTAL STATUS EXAMINATION: Patient is a 30-year old female, who is, no longer responding to internal stimul i. Speech: Is no gross disturbance. Language skills are intact. Thought processes including:. Still somewhat confused as to her discharge plan and the availability of a place for her. Thought content:. As above. Abstract reasoning, and computation:, Poor. Description of associations:, No loose associations. Description of abnormal or psychotic thoughts:. No psychotic thought. At this time noted. Judgment:. Poor. Insight: Poor. Orientation: 3. Recent and remote memory: Essentially intact. Attention span and concentration:. Poor. Language:. No gross disturbance. Fund of knowledge: Reasonable. Mood: Anxious. Affect:, Congruent. DIAGNOSES: 1. Opiate dependence. 2. None. 3.. None. ASSESSMENT: As above MANAGEMENT PLAN:. Planning to Center residential care. TIME SPENT:, 25 minutes. Vital Signs Vital Signs Date Time Temp Pulse Resp B/P (MAP) Pulse Ox O2 Delivery O2 Flow Rate FiO2 01/12/21 10:02 Room Air 01/11/21 18:24 97.7 84 16 117/74 (88) 01/11/21 06:32 94 Current Medications Current Medications Medications (Trade) Dose Ordered Sig/Walt Route PRN Reason Start Time Stop Time Status Last Admin Dose Admin Acetaminophen (Tylenol Tab) 650 mg Q6HP PRN PO HEADACHE or DISCOMFORT 01/07/21 11:45 01/12/21 07:42 Al Hydrox/Mg Hydrox/Simethicone (Mylanta) 30 ml Q4HP PRN PO HEARTBURN/INDIGESTION 01/07/21 11:45 01/12/21 09:29 Diphenhydramine HCl (Benadryl) 50 mg Q6HP PRN PO anxiety/agitation 01/07/21 15:35 01/07/21 15:50 Haloperidol (Haldol) 10 mg Q6HP PRN PO anxiety/agitation 01/07/21 15:35 01/07/21 15:45 Home Med (Med Rec Complete!) ASDIRECTED XX 01/07/21 07:55 01/07/21 07:56 DC Lorazepam (Ativan) 2 mg Q6HP PRN PO ANXIETY/AGITATION 01/07/21 15:35 01/09/21 10:28 DC 01/07/21 15:45 Magnesium Hydroxide (Milk Of Magnesia) 30 ml DAILYPRN PRN PO CONSTIPATION 01/07/21 11:45 Nicotine (Nicoderm Cq 21mg) 1 patch DAILY TD 01/07/21 09:00 01/12/21 08:35 Paliperidone (Invega) 3 mg QAM PO 01/08/21 09:00 01/09/21 10:27 DC 01/09/21 08:08 Paliperidone (Invega) 6 mg QAM PO 01/10/21 09:00 01/12/21 08:34 Tetrahydrozoline HCl (Visine) 1 drop TIDP PRN OU REDNESS/IRRITATION 01/11/21 12:30 01/12/21 07:42 Trazodone HCl (Desyrel) 50 mg QHSP PRN PO INSOMNIA 01/07/21 11:45 01/10/21 20:00 Allergies Coded Allergies: Gluten Flour (Verified Allergy, Unknown, 08/11/18) NAMITA JULIAN MD Jan 12, 2021 15:03
[2021-01-12 17:00] VITALS: BP 109/74
[2021-01-12] MEDS: traZODone 50 MG TAB PO PRN (20:41)
[2021-01-13 06:45] VITALS: BP 101/64
--- NOTE | 2021-01-13 07:08 | MHIPNPDOC ---
[facility] Progress Note Progress Note DATE OF SERVICE: 01/13/21 HISTORY: 30-year-old female admitted in psychotic condition secondary to opiate use. Planning to go to rehabilitation. Psychosis is clearing with medication. Continues to clear. May go to live with mother prior to rehab. Patient continues in good mood. Will discuss disposition with staff VITAL SIGNS: See below. NEW TEST RESULTS: None. CURRENT MEDICATIONS: See below. MENTAL STATUS EXAMINATION: Patient is a 30-year old female, who is, no longer responding to internal stimuli. Speech: Is no gross disturbance. Language skills are intact. Thought processes including:. Still somewhat confused as to her discharge plan and the availability of a place for her. Thought content:. As above. Abstract reasoning, and computation:, Poor. Description of associations:, No loose associations. Description of abnormal or psychotic thoughts:. No psychotic thought. At this time noted. Judgment:. Poor. Insight: Poor. Orientation: 3. Recent and remote memory: Essentially intact. Attention span and concentration:. Poor. Language:. No gross disturbance. Fund of knowledge: Reasonable. Mood: Anxious. Affect:, Congruent. DIAGNOSES: 1. Opiate dependence. 2. None. 3.. None. ASSESSMENT: As above MANAGEMENT PLAN:. Planning to [facility] residential care. TIME SPENT:, 25 minutes. Vital Signs Vital Signs Date Time Temp Pulse Resp B/P (MAP) Pulse Ox O2 Delivery O2 Flow Rate FiO2 01/13/21 06:45 98.4 86 16 101/64 (76) 100 Room Air Current Medications Current Medications Medications (Trade) Dose Ordered Sig/Walt Route PRN Reason Start Time Stop Time Status Last Admin Dose Admin Acetaminophen (Tylenol Tab) 650 mg Q6HP PRN PO HEADACHE or DISCOMFORT 01/07/21 11:45 01/12/21 20:42 Al Hydrox/Mg Hydrox/Simethicone (Mylanta) 30 ml Q4HP PRN PO HEARTBURN/INDIGESTION 01/07/21 11:45 01/12/21 09:29 Diphenhydramine HCl (Benadryl) 50 mg Q6HP PRN PO anxiety/agitation 01/07/21 15:35 01/07/21 15:50 Haloperidol (Haldol) 10 mg Q6HP PRN PO anxiety/agitation 01/07/21 15:35 01/12/21 20:41 Home Med (Med Rec Complete!) ASDIRECTED XX 01/07/21 07:55 01/07/21 07:56 DC Lorazepam (Ativan) 2 mg Q6HP PRN PO ANXIETY/AGITATION 01/07/21 15:35 01/09/21 10:28 DC 01/07/21 15:45 Magnesium Hydroxide (Milk Of Magnesia) 30 ml DAILYPRN PRN PO CONSTIPATION 01/07/21 11:45 Nicotine (Nicoderm Cq 21mg) 1 patch DAILY TD 01/07/21 09:00 01/12/21 08:35 Paliperidone (Invega) 3 mg QAM PO 01/08/21 09:00 01/09/21 10:27 DC 01/09/21 08:08 Paliperidone (Invega) 6 mg QAM PO 01/10/21 09:00 01/12/21 08:34 Tetrahydrozoline HCl (Visine) 1 drop TIDP PRN OU REDNESS/IRRITATION 01/11/21 12:30 01/12/21 15:36 Trazodone HCl (Desyrel) 50 mg QHSP PRN PO INSOMNIA 01/07/21 11:45 01/12/21 20:41 Allergies Coded Allergies: Gluten Flour (Verified Allergy, Unknown, 08/11/18) NAMITA JULIAN MD Jan 13, 2021 07:08
[2021-01-13] MEDS: ACETAMINOPHEN TAB 650MG DOSE (2X325MG) PO PRN (08:06)
[2021-01-13] MEDS: PALIPERIDONE 6 MG ER TAB (INVEGA) PO SCH (08:06)
[2021-01-13] MEDS: TETRAHYDROZOLINE OPHTH 0.05% 15 ML BTL OU PRN (08:06)
[2021-01-13] MEDS: NICOTINE 21MG/24HR 1 EA TRANSDERMAL TD SCH (08:08)
[2021-01-13 17:33] VITALS: BP 120/68
[2021-01-14 06:52] VITALS: BP 103/53
[2021-01-14] MEDS ORDERED: PALI1TAB3 PO (06:57)
[2021-01-14] MEDS: ACETAMINOPHEN TAB 650MG DOSE (2X325MG) PO PRN (08:01)
[2021-01-14] MEDS: PALIPERIDONE 6 MG ER TAB (INVEGA) PO SCH (08:01)
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
[2021-01-14] MEDS: NICOTINE 21MG/24HR 1 EA TRANSDERMAL TD SCH (09:00)
== END 2021-01-14 10:48 | disposition home or self-care (01) | DRG 773 ==
LOC: M ED 02:29 → M ED INP 11:41 → M PSY 14:16
PROVIDERS: ADMIT Psychiatry & Neurology Child & Adolescent Psychiatry; ATTEND Psychiatry & Neurology Child & Adolescent Psychiatry
DX: F11.150 Opioid abuse with opioid-induced psychotic disorder with delusions (principal); K90.41 Non-celiac gluten sensitivity; F17.200 Nicotine dependence, unspecified, uncomplicated

== ENCOUNTER 2021-11-08 23:09 | Emergency (ER) | payer OTHER ==
[~2021-11-08] VITALS: Ht 170.2 cm; Wt 55.2 kg
[~2021-11-08 23:09] MED LIST changes: +ARIP10TA32 PO; -ARIP1TAB PO; +PALI1TAB3 PO
[2021-11-08] MEDS ORDERED: NS 1,000 ML IV SCH (23:35)
[2021-11-09 00:55] LABS: BASO % 0.5 % (0.0-1.0); EOS # 0.5 10^3/uL (0.0-0.5); EOS % 5.9 % (0.0-3.0); HEMATOCRIT 40.1 % (36.0-47.0); HEMOGLOBIN 12.9 g/dl (12.0-15.5); LYMPH # 2.9 10^3/uL (1.5-5.0); LYMPH % 37.3 % (24.0-44.0); MEAN CORPUSCULAR HEMOGLOBIN 30.5 pg (27.0-33.0); MEAN CORPUSCULAR HGB CONC 32.2 g/dl (32.0-36.5); MEAN CORPUSCULAR VOLUME 94.8 fl (80.0-96.0); MONO # 0.6 10^3/uL (0.0-0.8); MONO % 7.4 % (2.0-8.0); NEUTROPHILS # 3.8 10^3/uL (1.5-8.5); NEUTROPHILS % 48.6 % (36.0-66.0); PLATELET COUNT, AUTOMATED 245 10^3/uL (150-450); RED BLOOD COUNT 4.23 10^6/uL (4.00-5.40); WHITE BLOOD COUNT 7.8 10^3/uL (4.0-10.0)
[2021-11-09 00:57] LABS: AMPHETAMINES LEVEL URINE POSITIVE (NEGATIVE); BARBITURATES URINE NEGATIVE (NEGATIVE); BENZODIAZEPINES URINE NEGATIVE (NEGATIVE); CANNABINOIDS URINE POSITIVE (NEGATIVE); COCAINE METABOLITE URINE POSITIVE (NEGATIVE); METHADONE URINE NEGATIVE (NEGATIVE); OPIATES URINE POSITIVE (NEGATIVE); PHENCYCLIDINE URINE NEGATIVE (NEGATIVE)
[2021-11-09 01:10] LABS: ACETAMINOPHEN LEVEL < 2.0 UG/ML (10.0-30.0); ALBUMIN 3.2 GM/DL (3.2-5.2); ALT/SGPT 100 U/L (12-78); BILIRUBIN,DIRECT < 0.1 MG/DL (0.0-0.2); BILIRUBIN,TOTAL 0.1 MG/DL (0.2-1.0); BLOOD UREA NITROGEN 10 MG/DL (7-18); CARBON DIOXIDE LEVEL 29 MEQ/L (21-32); CHLORIDE LEVEL 106 MEQ/L (98-107); CREATININE FOR GFR 0.76 MG/DL (0.55-1.30); ETHYL ALCOHOL (ETHANOL) < 0.003 % (0.000-0.010); GLOMERULAR FILTRATION RATE > 60.0 (>60); GLUCOSE, FASTING 100 MG/DL (70-100); POTASSIUM SERUM 3.8 MEQ/L (3.5-5.1); SALICYLATE LEVEL < 1.7 MG/DL (5.0-30.0); SODIUM LEVEL 139 MEQ/L (136-145); TOTAL PROTEIN 6.9 GM/DL (6.4-8.2)
[2021-11-09 09:31] VITALS: BP 111/64
== END 2021-11-09 09:33 | disposition home or self-care (01) ==
LOC: M ED 23:09
DX: F19.10 Other psychoactive substance abuse, uncomplicated (principal); Z91.018 Allergy to other foods

== ENCOUNTER 2022-05-30 17:35 | Inpatient (IN) | payer OTHER ==
[~2022-05-30] VITALS: Ht 165.1 cm; Wt 66.5 kg
[2022-05-30 21:15] LABS: HEMATOCRIT 43.5 % (36.0-47.0); HEMOGLOBIN 14.2 g/dl (12.0-15.5); MEAN CORPUSCULAR HEMOGLOBIN 30.3 pg (27.0-33.0); MEAN CORPUSCULAR HGB CONC 32.6 g/dl (32.0-36.5); MEAN CORPUSCULAR VOLUME 92.9 fl (80.0-96.0); PLATELET COUNT, AUTOMATED 408 10^3/uL (150-450); RED BLOOD COUNT 4.68 10^6/uL (4.00-5.40); WHITE BLOOD COUNT 10.3 10^3/uL (4.0-10.0)
[2022-05-30 21:34] LABS: RSV AMPLIFICATION NEGATIVE (NEGATIVE)
[2022-05-30 21:43] LABS: HCG, SERUM QUALITATIVE NEGATIVE (NEGATIVE)
[2022-05-30 22:00] LABS: ACETAMINOPHEN LEVEL < 2.0 UG/ML (10.0-30.0); ALBUMIN 3.7 GM/DL (3.2-5.2); ALT/SGPT 57 U/L (12-78); BILIRUBIN,DIRECT 0.1 MG/DL (0.0-0.2); BILIRUBIN,TOTAL 0.4 MG/DL (0.2-1.0); BLOOD UREA NITROGEN 21 MG/DL (7-18); CALCIUM LEVEL 9.7 MG/DL (8.5-10.1); CARBON DIOXIDE LEVEL 29 MEQ/L (21-32); CHLORIDE LEVEL 104 MEQ/L (98-107); CREATININE FOR GFR 0.82 MG/DL (0.55-1.30); ETHYL ALCOHOL (ETHANOL) 0.004 % (0.000-0.010); GLOMERULAR FILTRATION RATE > 60.0 (>60); GLUCOSE, FASTING 95 MG/DL (70-100); POTASSIUM SERUM 3.7 MEQ/L (3.5-5.1); SALICYLATE LEVEL < 1.7 MG/DL (5.0-30.0); SODIUM LEVEL 139 MEQ/L (136-145); THYROID STIMULATING HORMONE 0.985 uIU/ML (0.358-3.740); TOTAL PROTEIN 8.3 GM/DL (6.4-8.2)
[2022-05-30] MEDS ORDERED: HOME MED LIST COMPLETE! XX SCH (22:10)
[2022-05-31 04:36] LABS: AMPHETAMINES LEVEL URINE POSITIVE (NEGATIVE); BARBITURATES URINE NEGATIVE (NEGATIVE); BENZODIAZEPINES URINE NEGATIVE (NEGATIVE); CANNABINOIDS URINE POSITIVE (NEGATIVE); COCAINE METABOLITE URINE NEGATIVE (NEGATIVE); METHADONE URINE NEGATIVE (NEGATIVE); OPIATES URINE NEGATIVE (NEGATIVE); PHENCYCLIDINE URINE NEGATIVE (NEGATIVE)
[2022-06-02 16:39] VITALS: BP 126/79
[2022-06-02] MEDS: IBUPROFEN 400MG TAB PO PRN (17:24)
[2022-06-02] MEDS: MAALOX 30 ML SUSP *UDC PO PRN (18:42)
[2022-06-02] MEDS: traZODone 50 MG TAB PO PRN (20:47)
[2022-06-03 06:39] VITALS: BP 99/57
[2022-06-03] MEDS: risperiDONE 3 MG TAB PO SCH ×2 (09:21→21:37)
[2022-06-03] MEDS: IBUPROFEN 400MG TAB PO PRN (09:22)
[2022-06-03 18:05] VITALS: BP 108/62
[2022-06-03] MEDS: traZODone 50 MG TAB PO PRN (21:37)
[2022-06-04 06:52] VITALS: BP 106/54
[2022-06-04] MEDS: risperiDONE 3 MG TAB PO SCH ×2 (09:16→21:28)
[2022-06-04] MEDS: IBUPROFEN 400MG TAB PO PRN ×2 (09:17→14:26)
[2022-06-04] MEDS: NICOTINE 21MG/24HR 1 EA TRANSDERMAL TD PRN (14:42)
[2022-06-04 18:08] VITALS: BP 127/81
[2022-06-05 06:39] VITALS: BP 103/56
[2022-06-05] MEDS: risperiDONE 3 MG TAB PO SCH ×2 (07:59→20:54)
[2022-06-05] MEDS: NICOTINE 21MG/24HR 1 EA TRANSDERMAL TD PRN (07:59)
[2022-06-05] MEDS: IBUPROFEN 400MG TAB PO PRN ×2 (08:00→17:25)
[2022-06-05 18:04] VITALS: BP 124/80
[2022-06-05] MEDS: traZODone 50 MG TAB PO PRN (20:54)
[2022-06-06 06:35] VITALS: BP 112/61
[2022-06-06] MEDS: IBUPROFEN 400MG TAB PO PRN ×2 (07:54→14:19)
[2022-06-06] MEDS: risperiDONE 3 MG TAB PO SCH ×2 (07:54→21:35)
[2022-06-06] MEDS ORDERED: PALIPERIDONE PAL 156MG/1ML INJ(INVEGA)(FREE PSY INPT ONLY) IM ONE (11:00)
[2022-06-06 16:12] VITALS: BP 102/64
[2022-06-06] MEDS: traZODone 50 MG TAB PO PRN (21:35)
[2022-06-07 06:40] VITALS: BP 109/81
[2022-06-07] MEDS: IBUPROFEN 400MG TAB PO PRN (06:43)
[2022-06-07] MEDS: NICOTINE 21MG/24HR 1 EA TRANSDERMAL TD PRN (07:35)
[2022-06-07] MEDS: risperiDONE 3 MG TAB PO SCH ×2 (07:36→20:17)
[2022-06-07] MEDS: MAALOX 30 ML SUSP *UDC PO PRN (10:05)
[2022-06-07 16:39] VITALS: BP 112/71
[2022-06-07] MEDS: traZODone 50 MG TAB PO PRN (20:17)
[2022-06-08 06:35] VITALS: BP 100/65
[2022-06-08] MEDS: risperiDONE 3 MG TAB PO SCH ×2 (07:43→20:02)
[2022-06-08] MEDS: IBUPROFEN 400MG TAB PO PRN (09:33)
[2022-06-08] MEDS: NICOTINE 21MG/24HR 1 EA TRANSDERMAL TD PRN (12:52)
[2022-06-08 16:18] VITALS: BP 125/59
[2022-06-08] MEDS: traZODone 50 MG TAB PO PRN (20:02)
[2022-06-09] MEDS: IBUPROFEN 400MG TAB PO PRN ×3 (03:49→17:07)
[2022-06-09 06:29] VITALS: BP 120/58
[2022-06-09] MEDS: risperiDONE 3 MG TAB PO SCH ×2 (09:19→21:38)
[2022-06-09] MEDS: NICOTINE 21MG/24HR 1 EA TRANSDERMAL TD PRN (09:57)
[2022-06-09] MEDS: MAALOX 30 ML SUSP *UDC PO PRN (10:27)
[2022-06-09 18:12] VITALS: BP 110/70
[2022-06-09] MEDS: traZODone 50 MG TAB PO PRN (21:38)
[2022-06-10 06:53] VITALS: BP 106/61
[2022-06-10] MEDS: risperiDONE 3 MG TAB PO SCH ×2 (08:45→22:10)
[2022-06-10] MEDS: NICOTINE 21MG/24HR 1 EA TRANSDERMAL TD PRN (08:45)
[2022-06-10] MEDS: IBUPROFEN 400MG TAB PO PRN ×2 (09:20→18:00)
[2022-06-10] MEDS: MOM 30ML SUSPENSION UDC PO PRN (15:40)
[2022-06-10 16:03] VITALS: BP 104/59
[2022-06-10] MEDS: traZODone 50 MG TAB PO PRN (22:10)
[2022-06-11 06:38] VITALS: BP 138/69
[2022-06-11] MEDS: risperiDONE 3 MG TAB PO SCH ×2 (09:01→21:23)
[2022-06-11] MEDS: IBUPROFEN 400MG TAB PO PRN ×2 (09:02→16:13)
[2022-06-11] MEDS: NICOTINE 21MG/24HR 1 EA TRANSDERMAL TD PRN (09:03)
[2022-06-11 16:34] VITALS: BP 129/64
[2022-06-11] MEDS: MOM 30ML SUSPENSION UDC PO PRN (18:12)
[2022-06-11] MEDS: traZODone 50 MG TAB PO PRN (21:23)
[2022-06-12 06:25] VITALS: BP 106/74
[2022-06-12] MEDS: risperiDONE 3 MG TAB PO SCH ×2 (07:44→22:06)
[2022-06-12] MEDS: MAALOX 30 ML SUSP *UDC PO PRN (11:45)
[2022-06-12] MEDS: IBUPROFEN 400MG TAB PO PRN (15:36)
[2022-06-12 16:50] VITALS: BP 126/70
[2022-06-12] MEDS: traZODone 50 MG TAB PO PRN (22:06)
[2022-06-13 06:21] VITALS: BP 117/61
[2022-06-13] MEDS: IBUPROFEN 400MG TAB PO PRN (06:36)
[2022-06-13] MEDS: risperiDONE 3 MG TAB PO SCH (09:34)
[2022-06-13] MEDS: MAALOX 30 ML SUSP *UDC PO PRN (15:46)
[2022-06-13 18:23] VITALS: BP 116/66
[2022-06-14 06:48] VITALS: BP 110/71
[2022-06-14] MEDS: risperiDONE 3 MG TAB PO SCH (07:45)
[2022-06-14] MEDS: NICOTINE 21MG/24HR 1 EA TRANSDERMAL TD PRN (15:54)
[2022-06-14] MEDS: MAALOX 30 ML SUSP *UDC PO PRN (15:54)
[2022-06-14 18:08] VITALS: BP 100/57
[2022-06-14] MEDS: traZODone 50 MG TAB PO PRN (20:50)
[2022-06-15] MEDS: IBUPROFEN 400MG TAB PO PRN ×3 (04:04→14:38)
[2022-06-15 06:28] VITALS: BP 110/77
[2022-06-15] MEDS: buPROPion **XL** TABLET 150MG (WELLBUTRIN XL) PO SCH (08:08)
[2022-06-15] MEDS: risperiDONE 3 MG TAB PO SCH (08:08)
[2022-06-15] MEDS: NICOTINE 21MG/24HR 1 EA TRANSDERMAL TD PRN (08:09)
[2022-06-15 17:47] VITALS: BP 154/95
[2022-06-16 07:00] VITALS: BP 103/63
[2022-06-16] MEDS: IBUPROFEN 400MG TAB PO PRN ×2 (07:22→20:25)
[2022-06-16] MEDS: risperiDONE 3 MG TAB PO SCH (08:22)
[2022-06-16] MEDS: buPROPion **XL** TABLET 150MG (WELLBUTRIN XL) PO SCH (08:22)
[2022-06-16] MEDS: NICOTINE 21MG/24HR 1 EA TRANSDERMAL TD PRN (08:23)
[2022-06-16 18:17] VITALS: BP 118/64
[2022-06-16] MEDS: traZODone 50 MG TAB PO PRN (20:24)
[2022-06-17 06:56] VITALS: BP 108/66
[2022-06-17] MEDS: buPROPion **XL** TABLET 150MG (WELLBUTRIN XL) PO SCH (08:46)
[2022-06-17] MEDS: NALTREXONE 50 MG TAB PO SCH (08:46)
[2022-06-17] MEDS: IBUPROFEN 400MG TAB PO PRN ×2 (10:23→17:59)
[2022-06-17] MEDS: NICOTINE 21MG/24HR 1 EA TRANSDERMAL TD PRN (12:08)
[2022-06-17 19:02] VITALS: BP 115/86
[2022-06-17] MEDS: risperiDONE 3 MG TAB PO SCH (21:15)
[2022-06-17] MEDS: traZODone 50 MG TAB PO PRN (21:16)
[2022-06-18 06:32] VITALS: BP 96/52
[2022-06-18] MEDS: NALTREXONE 50 MG TAB PO SCH (09:04)
[2022-06-18] MEDS: NICOTINE 21MG/24HR 1 EA TRANSDERMAL TD PRN (09:04)
[2022-06-18] MEDS: buPROPion **XL** TABLET 150MG (WELLBUTRIN XL) PO SCH (09:04)
[2022-06-18] MEDS: risperiDONE 3 MG TAB PO SCH (21:33)
[2022-06-18] MEDS: traZODone 50 MG TAB PO PRN (21:33)
[2022-06-19 06:22] VITALS: BP 115/63
[2022-06-19] MEDS: NALTREXONE 50 MG TAB PO SCH (09:27)
[2022-06-19] MEDS: buPROPion **XL** TABLET 150MG (WELLBUTRIN XL) PO SCH (09:28)
[2022-06-19] MEDS: NICOTINE 21MG/24HR 1 EA TRANSDERMAL TD PRN (09:29)
[2022-06-19 19:23] VITALS: BP 124/66
[2022-06-19] MEDS: risperiDONE 3 MG TAB PO SCH (21:48)
[2022-06-19] MEDS: traZODone 50 MG TAB PO PRN (21:48)
[2022-06-19] MEDS: IBUPROFEN 400MG TAB PO PRN (21:49)
[2022-06-20 06:02] VITALS: BP 109/54
[2022-06-20] MEDS: NICOTINE 21MG/24HR 1 EA TRANSDERMAL TD PRN (08:01)
[2022-06-20] MEDS: buPROPion **XL** TABLET 150MG (WELLBUTRIN XL) PO SCH (08:01)
[2022-06-20] MEDS: NALTREXONE 50 MG TAB PO SCH (08:01)
[2022-06-20] MEDS: risperiDONE 3 MG TAB PO SCH ×2 (09:18→21:45)
[2022-06-20] MEDS: IBUPROFEN 400MG TAB PO PRN (11:13)
[2022-06-20 16:34] VITALS: BP 100/60
[2022-06-20] MEDS: traZODone 50 MG TAB PO PRN (21:45)
[2022-06-21 06:14] VITALS: BP 93/54
[2022-06-21] MEDS: buPROPion **XL** TABLET 150MG (WELLBUTRIN XL) PO SCH (08:35)
[2022-06-21] MEDS: risperiDONE 3 MG TAB PO SCH ×2 (08:35→22:14)
[2022-06-21] MEDS: NALTREXONE 50 MG TAB PO SCH (08:35)
[2022-06-21] MEDS: NICOTINE 21MG/24HR 1 EA TRANSDERMAL TD PRN (09:28)
[2022-06-21 16:51] VITALS: BP 105/58
[2022-06-21] MEDS ORDERED: QUEtiapine FUMARATE 50MG TAB PO SCH (21:00)
[2022-06-22 07:17] VITALS: BP 124/87
[2022-06-22] MEDS: risperiDONE 3 MG TAB PO SCH (08:06)
[2022-06-22] MEDS: buPROPion **XL** TABLET 150MG (WELLBUTRIN XL) PO SCH (08:06)
[2022-06-22] MEDS: NALTREXONE 50 MG TAB PO SCH (08:06)
[2022-06-22] MEDS ORDERED: NALT50TA4 PO (08:40)
[2022-06-22] MEDS ORDERED: NICO21PAT TD (08:40)
[2022-06-22] MEDS ORDERED: BUPR150T12 PO (08:40)
[2022-06-22] MEDS ORDERED: QUET50TA4 PO (08:40)
[2022-06-22] MEDS ORDERED: RISP-10 PO (08:40)
[2022-06-22] MEDS ORDERED: TRAZ-252 PO (08:40)
[2022-06-22] MEDS ORDERED: INVE156I IM (08:43)
[2022-06-22] MEDS ORDERED: PALIPERIDONE PAL 156MG/1ML INJ(INVEGA)(FREE PSY INPT ONLY) IM SCH (09:00)
[2022-06-22] MEDS: IBUPROFEN 400MG TAB PO PRN (10:24)
[2022-06-22] MEDS: NICOTINE 21MG/24HR 1 EA TRANSDERMAL TD PRN (10:42)
== END 2022-06-22 11:35 | disposition home or self-care (01) | DRG 753 ==
LOC: M ED 17:35 → M ED INP 06-02 15:30 → M PSY 06-02 16:22
PROVIDERS: ADMIT Psychiatry & Neurology Psychiatry; ATTEND Student in an Organized Health Care Education/Training Program
DX: F31.9 Bipolar disorder, unspecified (principal); F15.14 Other stimulant abuse with stimulant-induced mood disorder; D72.829 Elevated white blood cell count, unspecified; F11.10 Opioid abuse, uncomplicated; F10.10 Alcohol abuse, uncomplicated; F12.159 Cannabis abuse with psychotic disorder, unspecified

== ENCOUNTER 2022-12-20 11:44 | Inpatient (IN) | payer OTHER ==
[~2022-12-20] VITALS: Ht 170.2 cm; Wt 62.4 kg
[~2022-12-20 11:44] MED LIST changes: +BUPR150T12 PO; +NALT50TA4 PO; +QUET50TA4 PO; +RISP-10 PO; +TRAZ-252 PO
[2022-12-20 14:44] LABS: HEMATOCRIT 37.9 % (36.0-47.0); HEMOGLOBIN 12.7 g/dl (12.0-15.5); MEAN CORPUSCULAR HEMOGLOBIN 30.1 pg (27.0-33.0); MEAN CORPUSCULAR HGB CONC 33.5 g/dl (32.0-36.5); MEAN CORPUSCULAR VOLUME 89.8 fl (80.0-96.0); PLATELET COUNT, AUTOMATED 405 10^3/uL (150-450); RED BLOOD COUNT 4.22 10^6/uL (4.00-5.40); WHITE BLOOD COUNT 9.9 10^3/uL (4.0-10.0)
[2022-12-20 15:08] LABS: ETHYL ALCOHOL (ETHANOL) 0.006 % (0.000-0.010)
[2022-12-20 15:09] LABS: ACETAMINOPHEN LEVEL < 2.0 UG/ML (10.0-20.0)
[2022-12-20 15:10] LABS: SALICYLATE LEVEL < 3.0 MG/DL (<30)
[2022-12-20 15:13] LABS: ALBUMIN 3.3 G/DL (3.2-5.2); ALKALINE PHOSPHATASE 93 U/L (46-116); ALT/SGPT 66 U/L (7.0-40); AST/SGOT 61 U/L (<34); BILIRUBIN,DIRECT 0.2 MG/DL (<0.4); BILIRUBIN,TOTAL 0.7 MG/DL (0.3-1.2); BLOOD UREA NITROGEN 14 MG/DL (9-23); CALCIUM LEVEL 9.7 MG/DL (8.5-10.1); CARBON DIOXIDE LEVEL 27 MMOL/L (20-31); CHLORIDE LEVEL 104 MMOL/L (98-107); CREATININE FOR GFR 0.67 MG/DL (0.55-1.30); GLOMERULAR FILTRATION RATE > 60.0 (>60); GLUCOSE, FASTING 79 MG/DL (60-100); POTASSIUM SERUM 3.8 MMOL/L (3.5-5.1); SODIUM LEVEL 139 MMOL/L (136-145); THYROID STIMULATING HORMONE 0.655 uIU/ML (0.55-4.78); TOTAL PROTEIN 7.7 G/DL (5.7-8.2)
[2022-12-20 15:18] LABS: HCG, SERUM QUALITATIVE NEGATIVE (NEGATIVE)
[2022-12-20 23:20] LABS: BARBITURATES URINE NEGATIVE (NEGATIVE); BENZODIAZEPINES URINE NEGATIVE (NEGATIVE); COCAINE METABOLITE URINE NEGATIVE (NEGATIVE); METHADONE URINE NEGATIVE (NEGATIVE); OPIATES URINE NEGATIVE (NEGATIVE); PHENCYCLIDINE URINE NEGATIVE (NEGATIVE)
[2022-12-20 23:23] LABS: AMPHETAMINES LEVEL URINE POSITIVE (NEGATIVE); CANNABINOIDS URINE POSITIVE (NEGATIVE)
[2022-12-21] MEDS ORDERED: HOME MED LIST COMPLETE! XX SCH (06:00)
[2022-12-22] MEDS ORDERED: MOM 30ML SUSPENSION UDC PO PRN (13:10)
[2022-12-22] MEDS ORDERED: MAALOX 30 ML SUSP *UDC PO PRN (13:10)
[2022-12-22] MEDS ORDERED: traZODone 50 MG TAB PO PRN (13:10)
[2022-12-22 16:08] VITALS: BP 115/68
[2022-12-22] MEDS: IBUPROFEN 400MG TAB PO PRN (16:46)
[2022-12-22] MEDS: risperiDONE 2 MG TAB PO SCH (20:52)
[2022-12-22] MEDS: DOXYCYCLINE HYCLATE 100MG TABLET PO SCH (20:53)
[2022-12-23 06:25] VITALS: BP 107/69
[2022-12-23] MEDS: NICOTINE 21MG/24HR 1 EA TRANSDERMAL TD SCH (08:32)
[2022-12-23] MEDS: DOXYCYCLINE HYCLATE 100MG TABLET PO SCH ×2 (08:32→21:42)
[2022-12-23] MEDS: IBUPROFEN 400MG TAB PO PRN (08:32)
[2022-12-23] MEDS: risperiDONE 2 MG TAB PO SCH ×2 (08:32→21:41)
[2022-12-23] MEDS ORDERED: INFLUENZA QUADRIVALENT PF VACCINE 0.5ML SYRINGE IM.IMMUN ONE (09:00)
[2022-12-23] MEDS: PALIPERIDONE 3MG ER TAB (INVEGA) PO SCH ×2 (09:37→21:41)
[2022-12-23 16:23] VITALS: BP 111/76
[2022-12-24 06:50] VITALS: BP 102/61
[2022-12-24] MEDS: NICOTINE 21MG/24HR 1 EA TRANSDERMAL TD SCH (08:30)
[2022-12-24] MEDS: DOXYCYCLINE HYCLATE 100MG TABLET PO SCH ×2 (08:30→21:10)
[2022-12-24] MEDS: risperiDONE 2 MG TAB PO SCH (08:30)
[2022-12-24] MEDS: PALIPERIDONE 3MG ER TAB (INVEGA) PO SCH ×2 (08:30→21:10)
[2022-12-24] MEDS ORDERED: HOME MED LIST COMPLETE! XX SCH (08:35)
[2022-12-24] MEDS: IBUPROFEN 400MG TAB PO PRN (13:23)
[2022-12-24 16:23] VITALS: BP 118/72
[2022-12-25 06:47] VITALS: BP 104/70
[2022-12-25] MEDS: DOXYCYCLINE HYCLATE 100MG TABLET PO SCH ×2 (07:49→21:18)
[2022-12-25] MEDS: PALIPERIDONE 3MG ER TAB (INVEGA) PO SCH (07:49)
[2022-12-25] MEDS: NICOTINE 21MG/24HR 1 EA TRANSDERMAL TD SCH (07:49)
[2022-12-25] MEDS: IBUPROFEN 400MG TAB PO PRN (12:30)
[2022-12-25 16:12] VITALS: BP 118/68
[2022-12-25] MEDS: PALIPERIDONE 6MG ER TAB (INVEGA) PO SCH (21:18)
[2022-12-25] MEDS: MIRTAZAPINE 7.5MG PER 1/2 TABLET PO SCH (21:18)
[2022-12-26 07:08] VITALS: BP 108/63
[2022-12-26] MEDS: DOXYCYCLINE HYCLATE 100MG TABLET PO SCH ×2 (09:43→21:04)
[2022-12-26] MEDS: NICOTINE 21MG/24HR 1 EA TRANSDERMAL TD SCH (09:46)
[2022-12-26 18:37] VITALS: BP 127/77
[2022-12-26] MEDS: MIRTAZAPINE 7.5MG PER 1/2 TABLET PO SCH (21:04)
[2022-12-26] MEDS: PALIPERIDONE 6MG ER TAB (INVEGA) PO SCH (21:04)
[2022-12-27 06:11] VITALS: BP 121/61
[2022-12-27] MEDS: DOXYCYCLINE HYCLATE 100MG TABLET PO SCH (09:30)
[2022-12-27] MEDS ORDERED: INVE234I IM (10:42)
[2022-12-27] MEDS ORDERED: MIRT-10 PO ×2 (10:42→11:09)
[2022-12-27] MEDS ORDERED: NICO21PAT TD (10:42)
[2022-12-27] MEDS ORDERED: DOXY100T PO (10:42)
[2022-12-27] MEDS ORDERED: PALIPERIDONE PAL 234MG/1.5ML INJ (INVEGA)(FREE PSY INPT ONLY) IM ONE (11:00)
== END 2022-12-27 11:45 | disposition home or self-care (01) | DRG 750 ==
LOC: EDBD 11:44 → M ED 11:44 → M ED INP 12-22 13:08 → M PSY 12-22 15:16
PROVIDERS: ADMIT Student in an Organized Health Care Education/Training Program; ATTEND Psychiatry & Neurology Psychiatry
DX: F25.9 Schizoaffective disorder, unspecified (principal); F15.959 Other stimulant use, unspecified with stimulant-induced psychotic disorder, unspecified; F12.959 Cannabis use, unspecified with psychotic disorder, unspecified; S00.93XA Contusion of unspecified part of head, initial encounter; W00.1XXA Fall from stairs and steps due to ice and snow, initial encounter; Y92.9 Unspecified place or not applicable; Z59.00 Homelessness unspecified

== ENCOUNTER 2023-02-09 13:08 | Inpatient (IN) | payer OTHER ==
[~2023-02-09] VITALS: Ht 172.7 cm; Wt 65.9 kg
[~2023-02-09 13:08] MED LIST changes: +DOXY100T PO; +MIRT-10 PO
[2023-02-09 16:22] LABS: HEMATOCRIT 43.5 % (36.0-47.0); HEMOGLOBIN 14.7 g/dl (12.0-15.5); MEAN CORPUSCULAR HEMOGLOBIN 30.2 pg (27.0-33.0); MEAN CORPUSCULAR HGB CONC 33.8 g/dl (32.0-36.5); MEAN CORPUSCULAR VOLUME 89.5 fl (80.0-96.0); PLATELET COUNT, AUTOMATED 302 10^3/uL (150-450); RED BLOOD COUNT 4.86 10^6/uL (4.00-5.40); WHITE BLOOD COUNT 9.3 10^3/uL (4.0-10.0)
[2023-02-09 16:48] LABS: ETHYL ALCOHOL (ETHANOL) 0.004 % (0.000-0.010)
[2023-02-09 16:49] LABS: SALICYLATE LEVEL < 3.0 MG/DL (<30)
[2023-02-09 16:50] LABS: ACETAMINOPHEN LEVEL < 2.0 UG/ML (10.0-20.0); ALBUMIN 3.9 G/DL (3.2-5.2); ALKALINE PHOSPHATASE 71 U/L (46-116); ALT/SGPT 107 U/L (7.0-40); AST/SGOT 62 U/L (<34); BILIRUBIN,DIRECT 0.1 MG/DL (<0.4); BILIRUBIN,TOTAL 0.3 MG/DL (0.3-1.2); BLOOD UREA NITROGEN 12 MG/DL (9-23); CALCIUM LEVEL 9.8 MG/DL (8.5-10.1); CARBON DIOXIDE LEVEL 26 MMOL/L (20-31); CHLORIDE LEVEL 106 MMOL/L (98-107); CREATININE FOR GFR 0.88 MG/DL (0.55-1.30); GLOMERULAR FILTRATION RATE > 60.0 (>60); GLUCOSE, FASTING 94 MG/DL (60-100); POTASSIUM SERUM 3.8 MMOL/L (3.5-5.1); SODIUM LEVEL 140 MMOL/L (136-145); TOTAL PROTEIN 8.2 G/DL (5.7-8.2)
[2023-02-09 16:54] LABS: THYROID STIMULATING HORMONE 2.276 uIU/ML (0.55-4.78)
[2023-02-09] MEDS ORDERED: LORazepam 2 MG TAB PO STA (19:37)
[2023-02-09 21:06] LABS: AMPHETAMINES LEVEL URINE NEGATIVE (NEGATIVE); BENZODIAZEPINES URINE NEGATIVE (NEGATIVE); PHENCYCLIDINE URINE NEGATIVE (NEGATIVE)
[2023-02-09 21:07] LABS: BARBITURATES URINE NEGATIVE (NEGATIVE); CANNABINOIDS URINE NEGATIVE (NEGATIVE); COCAINE METABOLITE URINE NEGATIVE (NEGATIVE); METHADONE URINE NEGATIVE (NEGATIVE); OPIATES URINE NEGATIVE (NEGATIVE)
[2023-02-10] MEDS: NICOTINE 21MG/24HR 1 EA TRANSDERMAL TD SCH (09:00)
[2023-02-10] MEDS ORDERED: INVE117I IM (13:54)
[2023-02-10] MEDS ORDERED: HOME MED LIST COMPLETE! XX SCH (13:55)
[2023-02-10] MEDS ORDERED: MOM 30ML SUSPENSION UDC PO PRN (14:20)
[2023-02-10] MEDS ORDERED: LORazepam 1 MG TAB PO PRN (14:20)
[2023-02-10] MEDS ORDERED: IBUPROFEN 400MG TAB PO PRN (14:20)
[2023-02-10 17:49] VITALS: BP 114/75
[2023-02-11 06:01] VITALS: BP 94/56
[2023-02-11] MEDS: NICOTINE 21MG/24HR 1 EA TRANSDERMAL TD SCH (09:00)
[2023-02-11 18:00] VITALS: BP 125/63
[2023-02-12 06:39] VITALS: BP 100/57
[2023-02-12] MEDS: NICOTINE 21MG/24HR 1 EA TRANSDERMAL TD SCH ×2 (08:10→12:24)
[2023-02-12] MEDS: ACETAMINOPHEN TAB 650MG DOSE (2X325MG) PO PRN (09:17)
[2023-02-12] MEDS: PALIPERIDONE 3MG ER TAB (INVEGA) PO SCH ×2 (11:03→21:35)
[2023-02-13] MEDS: ACETAMINOPHEN TAB 650MG DOSE (2X325MG) PO PRN ×3 (00:20→19:10)
[2023-02-13 07:00] VITALS: BP 103/58
[2023-02-13] MEDS: NICOTINE 21MG/24HR 1 EA TRANSDERMAL TD SCH (07:39)
[2023-02-13] MEDS: PALIPERIDONE 3MG ER TAB (INVEGA) PO SCH ×2 (07:39→20:58)
[2023-02-13] MEDS: MAALOX 30 ML SUSP *UDC PO PRN (12:31)
[2023-02-13 16:15] VITALS: BP 113/68
[2023-02-13 16:26] LABS: BASO % 0.2 % (0.0-1.0); EOS % 0.5 % (0.0-3.0); HEMATOCRIT 39.8 % (36.0-47.0); HEMOGLOBIN 13.5 g/dl (12.0-15.5); LYMPH % 19.4 % (24.0-44.0); MEAN CORPUSCULAR HEMOGLOBIN 30.9 pg (27.0-33.0); MEAN CORPUSCULAR HGB CONC 33.9 g/dl (32.0-36.5); MEAN CORPUSCULAR VOLUME 91.1 fl (80.0-96.0); MONO % 4.5 % (2.0-8.0); NEUTROPHILS # 9.7 10^3/uL (1.5-8.5); NEUTROPHILS % 75.1 % (36.0-66.0); PLATELET COUNT, AUTOMATED 308 10^3/uL (150-450); RED BLOOD COUNT 4.37 10^6/uL (4.00-5.40)
[2023-02-13 16:27] LABS: EOS # 0.1 10^3/uL (0.0-0.5); LYMPH # 2.5 10^3/uL (1.5-5.0); MONO # 0.6 10^3/uL (0.0-0.8)
[2023-02-13 16:37] LABS: ERYTHROCYTE SEDIMENTATION RATE 18 mm/hr (0-20)
[2023-02-13 16:48] LABS: C REACTIVE PROTEIN QUANTITATIV < 0.40 MG/DL (<1.0)
[2023-02-13 16:54] LABS: BLOOD UREA NITROGEN 10 MG/DL (9-23); CALCIUM LEVEL 9.3 MG/DL (8.5-10.1); CARBON DIOXIDE LEVEL 27 MMOL/L (20-31); CHLORIDE LEVEL 105 MMOL/L (98-107); CREATININE FOR GFR 0.71 MG/DL (0.55-1.30); GLOMERULAR FILTRATION RATE > 60.0 (>60); GLUCOSE, FASTING 105 MG/DL (60-100); POTASSIUM SERUM 5.2 MMOL/L (3.5-5.1); SODIUM LEVEL 138 MMOL/L (136-145)
[2023-02-13] MEDS ORDERED: LIDOCAINE W/EPINEPHRINE 1% 20ML VIAL SC ONE (18:30)
[2023-02-13] MEDS: BACTRIM 160MG/800MG DS TAB PO SCH (20:57)
[2023-02-13] MEDS: traZODone 50 MG TAB PO PRN (20:58)
[2023-02-14 07:02] VITALS: BP 110/59
[2023-02-14] MEDS ORDERED: PALIPERIDONE PAL 156MG/1ML INJ(INVEGA)(FREE PSY INPT ONLY) IM ONE ×2 (09:05→11:00)
[2023-02-14] MEDS: BACTRIM 160MG/800MG DS TAB PO SCH ×2 (09:35→22:09)
[2023-02-14] MEDS: NICOTINE 21MG/24HR 1 EA TRANSDERMAL TD SCH (09:36)
[2023-02-14] MEDS: LACTOBACILLUS ACIDOPHILUS CAP (BACID) PO SCH ×3 (12:21→22:09)
[2023-02-14 13:36] LABS: BASO % 0.2 % (0.0-1.0); EOS # 0.1 10^3/uL (0.0-0.5); EOS % 1.2 % (0.0-3.0); HEMATOCRIT 39.4 % (36.0-47.0); HEMOGLOBIN 13.1 g/dl (12.0-15.5); LYMPH # 2.2 10^3/uL (1.5-5.0); LYMPH % 21.7 % (24.0-44.0); MEAN CORPUSCULAR HEMOGLOBIN 30.4 pg (27.0-33.0); MEAN CORPUSCULAR HGB CONC 33.2 g/dl (32.0-36.5); MEAN CORPUSCULAR VOLUME 91.4 fl (80.0-96.0); MONO # 0.5 10^3/uL (0.0-0.8); MONO % 4.9 % (2.0-8.0); NEUTROPHILS # 7.2 10^3/uL (1.5-8.5); NEUTROPHILS % 71.8 % (36.0-66.0); PLATELET COUNT, AUTOMATED 273 10^3/uL (150-450); RED BLOOD COUNT 4.31 10^6/uL (4.00-5.40)
[2023-02-14 14:11] LABS: BLOOD UREA NITROGEN 14 MG/DL (9-23); CALCIUM LEVEL 9.4 MG/DL (8.5-10.1); CARBON DIOXIDE LEVEL 27 MMOL/L (20-31); CHLORIDE LEVEL 103 MMOL/L (98-107); CREATININE FOR GFR 0.74 MG/DL (0.55-1.30); GLOMERULAR FILTRATION RATE > 60.0 (>60); GLUCOSE, FASTING 91 MG/DL (60-100); POTASSIUM SERUM 4.3 MMOL/L (3.5-5.1); SODIUM LEVEL 136 MMOL/L (136-145)
[2023-02-14] MEDS: ACETAMINOPHEN TAB 650MG DOSE (2X325MG) PO PRN (14:30)
[2023-02-14 16:26] VITALS: BP 100/63
[2023-02-14] MEDS: traZODone 50 MG TAB PO PRN (22:09)
[2023-02-15 06:28] VITALS: BP 126/65
[2023-02-15] MEDS: BACTRIM 160MG/800MG DS TAB PO SCH ×2 (08:31→21:01)
[2023-02-15] MEDS: LACTOBACILLUS ACIDOPHILUS CAP (BACID) PO SCH ×4 (08:31→21:01)
[2023-02-15] MEDS: NICOTINE 21MG/24HR 1 EA TRANSDERMAL TD SCH (08:31)
[2023-02-15] MEDS: ACETAMINOPHEN TAB 650MG DOSE (2X325MG) PO PRN (12:21)
[2023-02-15] MEDS: MAALOX 30 ML SUSP *UDC PO PRN (15:38)
[2023-02-15 16:12] VITALS: BP 102/58
[2023-02-15] MEDS: traZODone 50 MG TAB PO PRN (21:01)
[2023-02-16 06:08] VITALS: BP 100/70
[2023-02-16] MEDS: BACTRIM 160MG/800MG DS TAB PO SCH (08:25)
[2023-02-16] MEDS: LACTOBACILLUS ACIDOPHILUS CAP (BACID) PO SCH (08:25)
[2023-02-16] MEDS: NICOTINE 21MG/24HR 1 EA TRANSDERMAL TD SCH (08:26)
[2023-02-16] MEDS: ACETAMINOPHEN TAB 650MG DOSE (2X325MG) PO PRN (09:04)
[2023-02-16] MEDS ORDERED: BACTDSTA PO (09:19)
[2023-02-16] MEDS ORDERED: TRAZ-252 PO (09:20)
[2023-02-16] MEDS ORDERED: RISATAB3 PO (09:20)
[2023-02-16] MEDS ORDERED: INVE156I IM (09:20)
== END 2023-02-16 11:21 | disposition home or self-care (01) | DRG 750 ==
LOC: M ED 13:08 → M ED INP 02-10 14:58 → M PSY 02-10 17:39
PROVIDERS: ADMIT Psychiatry & Neurology Psychiatry; ATTEND Psychiatry & Neurology Psychiatry
PROC: 0H9DXZZ Drainage of Right Lower Arm Skin, External Approach (ICD-10-PCS; principal; 2023-02-14)
DX: F25.9 Schizoaffective disorder, unspecified (principal); F12.10 Cannabis abuse, uncomplicated; Z91.018 Allergy to other foods; L02.413 Cutaneous abscess of right upper limb; F15.159 Other stimulant abuse with stimulant-induced psychotic disorder, unspecified; Z20.822 Contact with and (suspected) exposure to COVID-19